=== PATIENT | female | born 1955 | race African-American/Black ===

== ENCOUNTER 2016-09-21 15:19 | Emergency (ER) ==
[2016-09-21 15:25] VITALS: BP 132/69
--- NOTE | 2016-09-21 15:50 | PROVIDER DOCUMENTATION ---
HPI-General Adult - General Source: patient - History of Present Illness -Gen Adult Nature of Presenting Problems: pt is a 61 y/o F that presents to the ER with body aches, muscle weakness, cough. denies n/v/d, fever, or urinary issues. Patient other half has same symptoms Location of Pain/Injury: reports: generalized Pain Radiation: reports: no radiation Quality of Pain: reports: aching Severity: reports: mild, moderate Onset/Duration: reports: gradual Timing: reports: still present, constant Context/Activities at Onset: reports: none Modifying Factors: improves with: nothing Associated Symptoms: reports: cough, fever/chills, muscle aches. denies: chest pain, diarrhea, dizziness, genitourinary problems, nausea, shortness of breath, vomiting Similar Symptoms Previously?: No Recently seen or treated by another doctor?: No <Orlando Fragoso - Last Filed: 09/21/16 15:46> <Robert Bang - Last Filed: 09/21/16 17:04> - General Chief Complaint: Flu Symptoms Stated Complaint: FLU SX Time Seen by Provider: 09/21/16 15:46 Allergies/Adverse Reactions: Patient Allergies Allergy/AdvReac Type Severity Reaction Status Date / Time shellfish derived Allergy Severe ITCHING Verified 04/15/15 15:30 sulfamethoxazole Allergy Intermediate RASH Verified 04/15/15 15:30 [From Bactrim] trimethoprim [From Bactrim] Allergy Intermediate RASH Verified 04/15/15 15:30 Sulfa (Sulfonamide Allergy SWELLING Verified 04/15/15 15:30 Antibiotics) tramadol Allergy FATIGUE Verified 04/15/15 15:30 aspirin AdvReac Severe "CAN'T Verified 04/15/15 15:30 TAKE BECAUSE OF MY KIDNEYS" Penicillins AdvReac RASH Verified 04/15/15 15:30 Home Medications: Home Medication List Medication Instructions Recorded Confirmed Last Taken Type PRAVAstatin [Pravachol] 40 mg PO QHS 11/24/14 12/20/15 12/19/15 08:00 History Dicyclomine [Bentyl] 10 mg PO 4XDAY 01/05/15 12/20/15 12/19/15 21:00 History Furosemide [Lasix] 40 mg PO DAILY 01/05/15 12/20/15 12/19/15 08:00 History Glipizide 10 mg PO DAILY 01/05/15 12/20/15 12/19/15 08:00 History Esomeprazole [Nexium] 40 mg PO DAILY 03/29/15 12/20/15 12/19/15 08:00 History Insulin Glargine [Lantus] 30 unit SUBQ DAILY 03/29/15 12/20/15 12/19/15 08:00 History Hydralazine [Apresoline] 50 mg PO DAILY 07/12/15 12/20/15 12/19/15 08:00 History Isosorbide Dinitrate [Isordil] 15 mg PO DAILY 07/12/15 12/20/15 12/19/15 08:00 History Nifedipine [Nifedical Xl] 60 mg PO DAILY 07/12/15 12/20/15 12/19/15 08:00 History Ondansetron HCl [Zofran] 4 mg PO PRN PRN 07/12/15 12/20/15 07/14/15 08:00 History Carvedilol [Coreg] 25 mg PO DAILY 07/14/15 12/20/15 12/19/15 08:00 History Fluconazole [Diflucan] 100 mg PO DAILY #20 tablet 07/14/15 12/20/15 12/19/15 21: 00 Rx Sucralfate [Carafate] 1 gm PO 4XDAY #120 tablet 12/20/15 Unknown Rx CephALEXIN [Keflex] 250 mg PO DAILY #10 capsule 06/03/16 Unknown Rx Cephalexin [Keflex] 500 mg PO BID #14 capsule 06/03/16 Unknown Rx Guaifenesin/Codeine [Robitussin-AC] 10 ml PO Q4H PRN PRN #4 oz 09/21/16 Unknown Rx Review of Systems - Adult - REVIEW OF SYSTEMS - ADULT Constitutional: reports: chills. denies: fever Eyes: reports: no symptoms reported Ears, Nose, Mouth & Throat: reports: sinus problem. denies: ear pain, throat pain Cardiovascular: denies: chest pain, palpitations Respiratory: reports: cough. denies: shortness of breath Gastrointestinal: denies: diarrhea, nausea, vomiting Genitourinary: reports: no symptoms reported Musculoskeletal: reports: muscle aches, muscle weakness Integumentary: denies: itching, rash Neurological: reports: no symptoms reported Psychiatric: reports: no symptoms reported Endocrine: reports: no symptoms reported Hematologic/Lymphatic: reports: no symptoms reported Allergic/Immunologic: reports: no symptoms reported All Other Systems: Reviewed and Negative <Orlando Fragoso - Last Filed: 09/21/16 15:46> Past History - Adult - PAST MEDICAL HISTORY-ADULT Review of Records: reports: Old Records Reviewed, Nursing Assessment Review, Medications Reviewed Cardiovascular: reports: CHF, HTN, hyperlipidemia Respiratory: reports: asthma, COPD Gastrointestinal: reports: GERD Genitourinary: reports: kidney disease (CKD creatinin is 2.3 which is her baseline), kidney stones Musculoskeletal: reports: arthritis Endocrine/Immune: reports: anemia, Diabetes - PRIOR SURGERIES/PROCEDURES Surgical/Procedure History: reports: cholecystectomy, hysterectomy, BTL, other ( ear surgery) - IMMUNIZATION STATUS Childhood Immunizations: NUTD Flu Vaccine: UTD - FAMILY HISTORY Family History: reviewed, not pertinent - SOCIAL HISTORY Smoking: non-smoker Living Situation: family <Orlando Fragoso - Last Filed: 09/21/16 15:46> Physical Exam-General - PHYSICAL EXAM-ADULT Initial Vital Signs Reviewed: Yes - CONSTITUTIONAL General Appearance: alert, no apparent distress - EYES Eyes: PERRL/EOMI, pink conjunctivae - HEAD, EARS, NOSE, MOUTH & THROAT HENMT: normocephalic/atraumatic, moist mucous membranes, normal ENT inspection - NECK Neck: non-tender, full range of motion, normal inspection - RESPIRATORY Respiratory: lungs clear, normal breath sounds, no respiratory distress, no accessory muscle use - CARDIOVASCULAR Cardiovascular: regular rate, rhythm, no edema, no murmur - GASTROINTESTINAL (ABDOMEN) Abdominal Exam: normal bowel sounds, non tender, soft - MUSCULOSKELETAL Extremity: normal range of motion, normal inspection, no pedal edema - SKIN Integumentary: normal color, warm/dry - NEUROLOGIC Neurologic: grossly normal, no motor/sensory deficits - PSYCHIATRIC Psych/Mental Status: normal mood/affect, normal thought content, normal thought process, oriented x 3 <Orlando Fragoso - Last Filed: 09/21/16 15:46> Progress - PLAN OF CARE/RESULTS Progress/Plan/Lab Results: Orders Category Date Time Status CHEST-2 VIEWS [RAD] Stat Exams 09/21/16 16:08 Taken Flu [INFLUENZA SCREEN PL] Stat Lab 09/21/16 15:20 Completed Orders Category Date Time Status CHEST-2 VIEWS [RAD] Stat Exams 09/21/16 16:08 Taken Flu [INFLUENZA SCREEN PL] Stat Lab 09/21/16 15:20 Completed Laboratory Tests 09/21/16 15:20 Influenza A (Rapid) NEGATIVE Influenza B (Rapid) NEGATIVE - XRAY 1 XRAY Study: Chest Impression: Normal XRAY Interpretation: nml <Robert Bang - Last Filed: 09/21/16 17:04> Departure <Orlando Fragoso - Last Filed: 09/21/16 15:46> - Departure Time of Disposition Order: 17:03 Certified Medical Emergency: Emergent <Robert Bang - Last Filed: 09/21/16 17:04> - Departure DIAGNOSIS: URI (upper respiratory infection) Qualifiers: URI type: acute nasopharyngitis (common cold) Qualified Code(s): J00 - Acute nasopharyngitis [common cold] Disposition: HOME 01 Condition: Stable Additional Instructions: ED Follow Up Instructions: You have been treated by a care provider in the Emergency Department. These instructions are being provided to you so you can have an understanding of how to care for yourself upon discharge. Upon discharge from the Emergency Department, you are responsible for making arrangements for follow-up care by a physician of your choice. Take all prescribed medications as directed. Return to the Emergency Department immediately for any new or worsening symptoms. You may call the Physician Referral phone number at [phone] to obtain a list of Physicians who are taking new patients. Prescriptions: Guaifenesin/Codeine [Robitussin-AC] 10 ml PO Q4H PRN PRN #4 oz PRN Reason: Cough Referrals: Kadeem Ruff [Primary Care Provider] - Call for Appoint. 1-2days Attestation - Scribe Verification/Attestation Scribe:: Orlando Fragoso Acting as Scribe for:: Robert Bang Scribe documention review:: This chart was documented by a scribe and accurately reflects the service the provider performed and the decisions made by the provider. <Orlando Fragoso - Last Filed: 09/21/16 15:46> Physician Attestation - Physician Attestation I, the provider, attest to the following statement:: Robert Bang Physician documentation Attestation:: This documentation recorded by the scribe accurately reflects the service I personally performed and the decisions made by me. <Orlando Fragoso - Last Filed: 09/21/16 15:46>
--- NOTE | 2016-09-21 17:34 | Diag Imaging Result Document ---
PROCEDURE NAME: CHEST-2 VIEWS - 09/21/2016 CHEST, 2 VIEWS: COMPARISON: Compared with 12/24/2014. FINDINGS: Heart size appears borderline enlarged and may have decreased slightly. The lungs appear clear. There is no pleural effusion or pneumothorax identified. The previous central venous catheter has been removed. IMPRESSION: Borderline cardiomegaly. No evidence of acute disease.
== END 2016-09-21 17:20 | disposition home or self-care (01) ==
LOC: P.ED 15:19
DX: J00 Acute nasopharyngitis [common cold] (principal); M79.1 Myalgia; M62.81 Muscle weakness (generalized); R05 Cough; R68.83 Chills (without fever); I50.9 Heart failure, unspecified; I10 Essential (primary) hypertension; E78.5 Hyperlipidemia, unspecified; J44.9 Chronic obstructive pulmonary disease, unspecified; K21.9 Gastro-esophageal reflux disease without esophagitis; M19.90 Unspecified osteoarthritis, unspecified site; E11.9 Type 2 diabetes mellitus without complications; Z79.4 Long term (current) use of insulin; Z79.899 Other long term (current) drug therapy; Z87.442 Personal history of urinary calculi
CPT/HCPCS: 71020; 87804; 99283

== ENCOUNTER 2016-12-06 06:44 | Inpatient (IN) ==
[2016-12-06] MEDS ORDERED: DUONEB (A & A) INH ONE (07:01)
[2016-12-06] MEDS ORDERED: SOLU-MEDROL IV ONE (07:01)
[2016-12-06 07:28] LABS: MANUAL DIFF NEEDED? NO
[2016-12-06 07:34] LABS: HEMATOCRIT 33.7 % (37.0-47.0); HEMOGLOBIN 10.6 g/dL (12.0-16.0); MCHC 31.5 g/dL (33-37); MCV 92.3 FL (81-99); NEUT% 59.1 % (42.2-75.2); PLT 189 X1000 (130-400); RBC 3.65 XMIL (4.2-5.4)
[2016-12-06 07:35] LABS: BASO% 0.7 % (0.0-0.8); EOS# 0.15 X1000 (0.0-0.7); EOS% 3.6 % (0.0-10.0); IMM GRAN# 0.04 X1000 (0.0-0.04); LYMPH# 0.98 X1000 (1.2-3.4); LYMPH% 23.6 % (20.5-51.1)
[2016-12-06 07:52] LABS: INR 0.92 (0.86-1.15); PROTIME 12.7 Seconds (12.1-15.5)
[2016-12-06 07:53] LABS: PTT PL 27.2 Seconds (22.6-43.9)
[2016-12-06 07:54] LABS: ALBUMIN 4.1 g/dL (3.5-5.0); MAGNESIUM 1.6 mg/dL (1.5-2.7); POTASSIUM 3.9 mmol/L (3.5-5.1); TOTAL BILIRUBIN 0.2 mg/dL (0.20-1.00); TOTAL PROTEIN 7.6 g/dL (6.3-8.3)
[2016-12-06] MEDS ORDERED: LASIX IV ONE (07:59)
--- NOTE | 2016-12-06 07:59 | EKG Report ---
Test Performed on : 12/06/2016 07:33:52 AM Test Reason : CHEST PAIN Blood Pressure : / mmHG Vent. Rate : 113 BPM Atrial Rate : 113 BPM P-R Int : 118 ms QRS Dur : 082 ms QT Int : 352 ms P-R-T Axes : 066 005 063 degrees QTc Int : 482 ms Sinus tachycardia. Possible Left atrial enlargement Borderline ECG When compared with ECG of 01-NOV-2016 13:38, Questionable change in QRS axis T wave amplitude has decreased in Lateral leads Unconfirmed Result
--- NOTE | 2016-12-06 08:06 | PROVIDER DOCUMENTATION ---
HPI-General Adult - General Chief Complaint: Flu Symptoms Stated Complaint: COLD SX Time Seen by Provider: 12/06/16 06:56 Source: patient, family Allergies/Adverse Reactions: Patient Allergies Allergy/AdvReac Type Severity Reaction Status Date / Time shellfish derived Allergy Severe ITCHING Verified 12/06/16 06:51 sulfamethoxazole Allergy Intermediate RASH Verified 12/06/16 06:51 [From Bactrim] trimethoprim [From Bactrim] Allergy Intermediate RASH Verified 12/06/16 06:51 Sulfa (Sulfonamide Allergy SWELLING Verified 12/06/16 06:51 Antibiotics) tramadol Allergy FATIGUE Verified 12/06/16 06:51 aspirin AdvReac Severe "CAN'T Verified 12/06/16 06:51 TAKE BECAUSE OF MY KIDNEYS" Penicillins AdvReac RASH Verified 12/06/16 06:51 Home Medications: Home Medication List Medication Instructions Recorded Confirmed Last Taken Type Dicyclomine [Bentyl] 20 mg PO 4XDAY 01/05/15 12/06/16 11/19/16 21:00 History Furosemide [Lasix] 40 mg PO DAILY 01/05/15 12/06/16 11/19/16 08:00 History Glipizide 10 mg PO DAILY 01/05/15 12/06/16 11/19/16 08:00 History Insulin Glargine [Lantus] 30 unit SUBQ BID 03/29/15 12/06/16 11/19/16 21:00 History Hydralazine [Apresoline] 50 mg PO BID 07/12/15 12/06/16 11/19/16 21:00 History Ondansetron HCl [Zofran] 8 mg PO PRN PRN 07/12/15 12/06/16 11/19/16 21:00 History Cinacalcet HCl [Sensipar] 30 mg PO DAILY 11/19/16 12/06/16 11/19/16 08:00 History Isosorbide Mononitrate 10 mg PO BID 11/19/16 12/06/16 11/19/16 21:00 History Mirtazapine [Remeron] 30 mg PO QHS 11/19/16 12/06/16 11/19/16 21:00 History Omeprazole 40 mg PO DAILY 11/19/16 12/06/16 11/19/16 08:00 History - History of Present Illness -Gen Adult Nature of Presenting Problems: states not feeling well has increasing shortness of breath, wheezing cougha nd sputum for past few days normally gets dialysis [facility], last dialysis was saturday states she felt too bad to go yesterday but now shortness of breath is worse and thinks she has fluid on her lungs. pt with mild to moderate distress speaking in 3 word sentences. Severity: reports: moderate Onset/Duration: reports: 3 days ago Timing: reports: still present Context/Activities at Onset: reports: none Modifying Factors: improves with: nothing Associated Symptoms: reports: denies symptoms Similar Symptoms Previously?: Yes Recently seen or treated by another doctor?: Yes Review of Systems - Adult - REVIEW OF SYSTEMS - ADULT Constitutional: reports: see HPI Eyes: reports: no symptoms reported Ears, Nose, Mouth & Throat: reports: no symptoms reported Cardiovascular: reports: see HPI, orthopnea Respiratory: reports: see HPI, cough, dyspnea on exertion, excessive sputum production, shortness of breath, wheezing Gastrointestinal: reports: no symptoms reported Genitourinary: reports: no symptoms reported Musculoskeletal: reports: muscle aches Integumentary: reports: no symptoms reported Neurological: reports: no symptoms reported Psychiatric: reports: no symptoms reported Endocrine: reports: no symptoms reported Hematologic/Lymphatic: reports: no symptoms reported Allergic/Immunologic: reports: no symptoms reported All Other Systems: Reviewed and Negative Past History - Adult - PAST MEDICAL HISTORY-ADULT Review of Records: reports: Old Records Reviewed, Nursing Assessment Review, Medications Reviewed Major Childhood Illnesses: reports: denies history Cardiovascular: reports: CHF, HTN, hyperlipidemia Respiratory: reports: asthma, COPD Gastrointestinal: reports: GERD Obstetrical/Gynecological: reports: denies history Genitourinary: reports: kidney disease (CKD creatinin is 2.3 which is her baseline), kidney stones Musculoskeletal: reports: arthritis Neurological: reports: denies history Endocrine/Immune: reports: anemia, Diabetes Other Conditions: reports: denies history - PRIOR SURGERIES/PROCEDURES Surgical/Procedure History: reports: cholecystectomy, hysterectomy, BTL, other ( ear surgery) - IMMUNIZATION STATUS Childhood Immunizations: NUTD Flu Vaccine: UTD - FAMILY HISTORY Family History: reviewed, not pertinent - SOCIAL HISTORY Smoking: denies Substance Use: none/never Alcohol Use Frequency: never Living Situation: family Physical Exam-General - PHYSICAL EXAM-ADULT Initial Vital Signs Reviewed: Yes - CONSTITUTIONAL General Appearance: alert, mild distress - EYES Eyes: PERRL/EOMI - HEAD, EARS, NOSE, MOUTH & THROAT HENMT: moist mucous membranes - NECK Neck: supple - RESPIRATORY Respiratory: chest non-tender, respiratory distress, decreased breath sounds ( bilateral base), rales, wheezing - CARDIOVASCULAR Cardiovascular: normal peripheral pulses, regular rate, rhythm, tachycardia - GASTROINTESTINAL (ABDOMEN) Abdominal Exam: soft - MUSCULOSKELETAL Extremity: no pedal edema, no calf tenderness - SKIN Integumentary: normal color, normal turgor, warm/dry - NEUROLOGIC Neurologic: grossly normal - PSYCHIATRIC Psych/Mental Status: normal mood/affect, normal thought content, normal thought process, oriented x 3 Progress - PLAN OF CARE/RESULTS Progress/Plan/Lab Results: Vital Signs - 8 hr 12/06/16 06:46 12/06/16 07:10 12/06/16 07:51 Temperature 97.8 F Pulse Rate 117 H 110 H 116 H Respiratory Rate 22 16 18 Blood Pressure 158/74 136/082 O2 Sat by Pulse Oximetry 95 95 Laboratory Results - last 24 hr 12/06/16 12/06/16 12/06/16 07:23 07:23 07:23 WBC 4.15 L RBC 3.65 L Hgb 10.6 L Hct 33.7 L MCV 92.3 MCH 29.0 MCHC 31.5 L RDW Std Deviation 14.9 H Plt Count 189 MPV 9.0 Immature Gran % (Auto) 1.0 H Neut % (Auto) 59.1 Lymph % (Auto) 23.6 Irwin % (Auto) 12.0 H Eos % (Auto) 3.6 Baso % (Auto) 0.7 Immature Gran # (Auto) 0.04 Neut # (Auto) 2.45 Lymph # (Auto) 0.98 L Irwin # (Auto) 0.50 Eos # (Auto) 0.15 Baso # (Auto) 0.03 PT INR APTT (Factor Assay) Sodium 136 Potassium 3.9 Chloride 96 L Carbon Dioxide 24 L Anion Gap 17 BUN 51 H Creatinine 5.6 H Estimated GFR/1.73 m2 8 BUN/Creatinine Ratio 9 Glucose 185 H Calculated Osmolality 290 Calcium 8.0 L Magnesium 1.6 Total Bilirubin 0.20 AST 35 H ALT 37 H Alkaline Phosphatase 153 H Creatine Kinase 131 Troponin T 0.024 Total Protein 7.6 Albumin 4.1 Globulin 4.0 Albumin/Globulin Ratio 1.0 12/06/16 07:23 WBC RBC Hgb Hct MCV MCH MCHC RDW Std Deviation Plt Count MPV Immature Gran % (Auto) Neut % (Auto) Lymph % (Auto) Irwin % (Auto) Eos % (Auto) Baso % (Auto) Immature Gran # (Auto) Neut # (Auto) Lymph # (Auto) Irwin # (Auto) Eos # (Auto) Baso # (Auto) PT 12.7 INR 0.92 APTT (Factor Assay) 27.2 Sodium Potassium Chloride Carbon Dioxide Anion Gap BUN Creatinine Estimated GFR/1.73 m2 BUN/Creatinine Ratio Glucose Calculated Osmolality Calcium Magnesium Total Bilirubin AST ALT Alkaline Phosphatase Creatine Kinase Troponin T Total Protein Albumin Globulin Albumin/Globulin Ratio Orders Category Date Time Status Cardiac Monitoring DIRECTED Care 12/06/16 07:04 Active Saline Loc NOW Care 12/06/16 07:04 Active CHEST-PORTABLE [RAD] Stat Exams 12/06/16 07:02 Taken CBC WITH ELECTRONIC DIFF [HEME] Stat Lab 12/06/16 07:23 Completed CK PROFILE [SP CHEM] Stat Lab 12/06/16 07:23 Completed COMPREHENSIVE METABOLIC PANEL [CHEM] Stat Lab 12/06/16 07:23 Completed MAGNESIUM [CHEM] Stat Lab 12/06/16 07:23 Completed PRO B-NATRIURETIC PEPTIDE Stat Lab 12/06/16 07:[address]IME WITH INR [address] [COAG] Stat Lab 12/06/16 07:[address] [COAG] Stat Lab 12/06/16 07:23 Completed TROPONIN T Stat Lab 12/06/16 07:23 Completed Albuterol 2.5MG/Ipratrop 0.5MG [Duoneb (A & A)] Med 12/06/16 07:01 Discontinued 9 ml INH NOW ONE Furosemide [Lasix] Med 12/06/16 07:59 Once 60 mg IV NOW ONE Methylprednisolone Sod Succ [Solu-Medrol] Med 12/06/16 07:01 Discontinued 125 mg IV NOW ONE Aerosol Treatments Routine Oth 12/06/16 07:02 Completed Aerosol Treatments Stat Oth 12/06/16 07:02 Completed EKG [EKG] Stat Ther 12/06/16 07:04 Draft 855am walker accepted the patient Result Diagrams: 12/06/16 07:23 12/06/16 07:23 - CONSULTS/PCP/HOSPITALIST Notification #1 *Consult/PCP/Hospitalist*: gladdish Time Discussed: 08:08 Reason/Comments: eval for dialysis states o2 low must transfer contact hospitalist Consult Disposition: other #2 Consult: hospitalist sera at [facility] Time Discussed: 08:08 Reason/Comments: states should just send to ED [place] Consult Disposition: other #3 Consult: hospitalist joseph paged 809am Time Discussed: 08:15 Reason/Comments: isra nurse practitioner will notify [place] hospitalist to call me back Consult Disposition: other Departure - Departure Time of Disposition Decision: 09:00 DIAGNOSIS: Acute renal failure syndrome, Shortness of breath Disposition: ADMITTED INPATIENT 09 Certified Medical Emergency: Emergent Condition: Fair - Critical Care Note This patient required my direct & personal management of CC.: Yes Total Time (mins): 35 Critical Care Statement: This patient required my direct personal management to treat or rule out processes, the absence of which, could potentiallly result in sudden, clinically significant life or limb threatening deterioration.
--- NOTE | 2016-12-06 08:26 | Diag Imaging Result Document ---
PROCEDURE NAME: CHEST-PORTABLE - 12/06/2016 PORTABLE CHEST X-RAY, 12/06/2016: COMPARISON: 11/01/2016. FINDINGS: Stable mild cardiomegaly and perhaps pulmonary vascular congestion. No infiltrates or edema. IMPRESSION: No change from prior.
[2016-12-06] MEDS ORDERED: HEPARIN IV PRN (08:29)
[2016-12-06] MEDS ORDERED: NS 2,000 ML MISC PRN (08:29)
[2016-12-06] MEDS ORDERED: TIGHT: 0.2 ML/HR MISC PRN (08:29)
[2016-12-06] MEDS ORDERED: HEPARIN ONE (08:50)
[2016-12-06] MEDS ORDERED: NS 2,000 ML ONE (08:50)
[2016-12-06] MEDS ORDERED: ZOFRAN IV PRN (11:27)
[2016-12-06] MEDS ORDERED: NS NEB INH SCH (11:45)
--- NOTE | 2016-12-06 12:28 | HISTORY AND PHYSICAL ---
PRIMARY CARE PROVIDER: Dr. Ruff. MASTIC MAN: Dr. Sommer. MANAGER CORPORATE STRATEGY: Dr. Bonner. CHIEF COMPLAINT: Shortness of breath. HISTORY OF PRESENT ILLNESS: Ms. Ban Brooks is a 61-year-old female with a history of end-stage renal disease who receives dialysis on Saturday, Saturday, Saturday, systolic congestive heart failure, hypertension, diabetes mellitus type 2, and COPD, who states that she woke up this morning with shortness of breath. Apparently, she missed her dialysis yesterday secondary to being nauseated all day. She states she is not nauseated now and her shortness of breath feels better. She has received respiratory treatments and Lasix, and is now currently on hemodialysis. She is on 2L nasal cannula. She does not use oxygen at home. Will need to wean off prior to discharge. Will continue with albuterol and Atrovent nebulizations , budesonide nebulizations, and transfer her to the medical floor once she is finished with dialysis. Currently, vital signs are stable. She does still have some crackles in the middle to lower lobes anteriorly and posteriorly. PAST MEDICAL HISTORY: GERD, asthma, COPD with no home O2, diabetes mellitus type 2, hypertension, systolic congestive heart failure, hypercholesterolemia, end-stage renal disease , anemia that is chronic, history of cardiac tamponade, but received a pericardial window for effusion in the past. PAST SURGICAL HISTORY: Cholecystectomy, hysterectomy, right arm AV graft, pericardial window. SOCIAL HISTORY: She lives at home with her boyfriend, who takes her to all of her hemodialysis treatments. She denies tobacco, alcohol, or illicit drug use. FAMILY HISTORY: Positive for hypertension, coronary artery disease, and congestive heart failure. ALLERGIES: Shellfish, sulfamethoxazole, trimethoprim, other sulfa antibiotics, tramadol, aspirin, and penicillin. HOME MEDICATIONS: Sensipar 30 mg p.o. daily. Bentyl 20 mg p.o. 4 times a day. Lasix 40 mg p.o. daily. Glipizide 10 mg p.o. daily. Hydralazine 50 mg p.o. twice daily. Lantus 30 units subcutaneous twice daily. Isosorbide mononitrate 10 mg p.o. twice daily. Remeron 30 mg p.o. nightly. Omeprazole 40 mg p.o. daily. Zofran 8 mg p.o. as needed for nausea. REVIEW OF SYSTEMS: Fourteen-point review of systems were completed and all were negative except for those mentioned above in HPI. LABORATORY DATA: White blood cells 4000, hemoglobin 10, hematocrit 33, platelet count 189,000. INR 0.92. PTT is 27. Sodium 136, potassium 3.9, BUN 51, creatinine 5.6, glucose 185, calcium 8.0, magnesium 1.6, bilirubin 0.2, AST 35, ALT 37, CK 131, troponin 0.024. IMAGING: Chest x-ray: Stable mild cardiomegaly and pulmonary vascular congestion, but no infiltrates or edema. ELECTROCARDIOGRAM: Sinus tachycardia. Rate was 113. QTc 482. PHYSICAL EXAMINATION: VITAL SIGNS: Temperature 97.8 degrees, heart rate 108, respiratory rate 24, blood pressure 185/85, and on 2L nasal cannula 99% saturation. Height 5 feet 5 inches, weight 220 pounds, BMI 36.6. GENERAL: Ms. Ban Brooks is a 61-year-old female. She is in no acute distress. She is sitting comfortably in the chair while receiving hemodialysis. She is able to answer all questions appropriately. HEENT: Atraumatic, normocephalic. Pupils equal, round, reactive to light. Extraocular movements intact. Mucous membranes are moist. NECK: No JVD or carotid bruits noted. CARDIOVASCULAR: S1 and S2. Tachycardic rate and rhythm. No rubs, gallops, murmurs. PULMONARY: Clear in the upper lobes, crackles in the mid to lower lobes anteriorly and posteriorly, but no accessory muscle use or work of breathing noted. She still is on 2L nasal cannula. GASTROINTESTINAL: Soft, nontender, nondistended. Positive bowel sounds x4. Obese. EXTREMITIES: Trace edema in the lower extremities, +2 dorsalis and radial pulses. Right arm that is currently connected to the hemodialysis unit. SKIN: Warm, dry, intact. NEUROLOGIC: Alert and oriented x4. Moves all extremities equally. ASSESSMENT AND PLAN: 1. Fluid volume overload secondary to missing hemodialysis. She received IV Lasix and has been started on dialysis. 2. End-stage renal disease, being managed by Dr. Bonner. 3. Shortness of breath. This is secondary to the fluid volume overload. She also has chronic obstructive pulmonary disease, but no exacerbation. We will continue with respiratory nebulizers and pulmonary toilet. Will wean oxygen as able prior to discharge. 4. Hypertension. Continue home medications. 5. Diabetes mellitus, type 2. Sliding scale insulin, pattern blood glucoses. 6. Systolic congestive heart failure. Please see #1. 7. Hypercholesterolemia. We will continue home medications. 8. Chronic anemia, currently stable. 9. Deep venous thrombosis prophylaxis with heparin 5000 units subcutaneous every 12 hours. 10. Gastrointestinal prophylaxis. Proton pump inhibitor. Dictated by MALINA Vidal for Jose Kuo MD cc: MD Dr. Speedy Sanchez Dr., CRNP Alexis R. Penot, MD pt examined, will get serial enzymes and follow closely APENOT MTDD
[2016-12-06] MEDS: BENTYL PO SCH ×3 (13:57→20:04)
[2016-12-06] MEDS ORDERED: DUONEB (A & A) INH SCH (16:00)
[2016-12-06] MEDS: ATROVENT NEB INH SCH ×2 (16:13→19:38)
[2016-12-06] MEDS: XOPENEX NEB INH SCH ×2 (16:13→19:38)
[2016-12-06] MEDS ORDERED: INSULIN PEN NEEDLES ONE (16:44)
[2016-12-06] MEDS: HUMULIN R SUBQ SCH ×3 (17:02→22:02)
[2016-12-06] MEDS: LANTUS SUBQ SCH ×2 (18:52→20:05)
[2016-12-06] MEDS: PULMICORT INH SCH (19:37)
[2016-12-06] MEDS: REMERON PO SCH (20:03)
[2016-12-06] MEDS: ISORDIL PO SCH (20:03)
[2016-12-06] MEDS: APRESOLINE PO SCH (20:03)
[2016-12-06] MEDS: HEPARIN SUBQ SCH (20:04)
[2016-12-06] MEDS ORDERED: LANTUS SUBQ SCH (21:00)
[2016-12-06] MEDS ORDERED: HUMULIN R SUBQ SCH (21:46)
[2016-12-07] MEDS: ATROVENT NEB INH SCH ×4 (03:45→21:10)
[2016-12-07] MEDS: XOPENEX NEB INH SCH ×4 (03:45→21:10)
[2016-12-07] MEDS ORDERED: D50W SYRINGE ONE (04:53)
[2016-12-07 06:04] LABS: MANUAL DIFF NEEDED? NO
[2016-12-07 06:07] LABS: BASO% 0.7 % (0.0-0.8); EOS# 0.01 X1000 (0.0-0.7); EOS% 0.2 % (0.0-10.0); HEMATOCRIT 32.9 % (37.0-47.0); HEMOGLOBIN 10.2 g/dL (12.0-16.0); IMM GRAN# 0.08 X1000 (0.0-0.04); IMM GRAN% 1.4 % (0.0-0.5); LYMPH# 1.16 X1000 (1.2-3.4); MCH 28.7 PG (27-31); MCV 92.4 FL (81-99); MONO# 0.66 X1000 (0.11-0.59); MONO% 11.9 % (1.7-9.3); MPV 9.2 FL (7.4-10.4); NEUT% 64.8 % (42.2-75.2); PLT 202 X1000 (130-400); RBC 3.56 XMIL (4.2-5.4)
[2016-12-07 06:15] LABS: INR 1.02; PROTIME 10.7 Seconds (9.2-11.7)
[2016-12-07] MEDS: PRILOSEC PO SCH (06:19)
[2016-12-07] MEDS: HUMULIN R SUBQ SCH ×4 (06:19→21:29)
[2016-12-07 06:35] LABS: ALBUMIN 3.8 g/dL (3.5-5.0); CALCIUM 8.2 mg/dL (8.8-10.2); MAGNESIUM 1.7 mg/dL (1.5-2.7); POTASSIUM 3.7 mmol/L (3.5-5.1); TOTAL BILIRUBIN 0.23 mg/dL (0.20-1.00); TOTAL PROTEIN 6.9 g/dL (6.3-8.3)
[2016-12-07] MEDS ORDERED: NS 2,000 ML MISC PRN (06:41)
[2016-12-07] MEDS ORDERED: TIGHT: 0.2 ML/HR MISC PRN (06:41)
[2016-12-07] MEDS ORDERED: HEPARIN IV PRN (06:41)
[2016-12-07] MEDS ORDERED: NS 2,000 ML ONE (08:02)
[2016-12-07] MEDS ORDERED: HEPARIN ONE (08:02)
--- NOTE | 2016-12-07 08:27 | Diag Imaging Result Document ---
PROCEDURE NAME: CHEST-2 VIEWS - 12/07/2016 2 VIEWS OF THE CHEST: FINDINGS: There is cardiomegaly. There are calcified nodes in the chuck. Compared to 12/06/2016 there has been no significant change in the appearance of the chest. IMPRESSION: Stable chest.
[2016-12-07] MEDS: HEPARIN SUBQ SCH ×2 (13:00→21:29)
[2016-12-07] MEDS: LASIX PO SCH (13:01)
[2016-12-07] MEDS: GLUCOTROL PO SCH (13:01)
[2016-12-07] MEDS: BENTYL PO SCH ×4 (13:01→21:30)
[2016-12-07] MEDS: APRESOLINE PO SCH ×2 (13:02→21:30)
[2016-12-07] MEDS: LANTUS SUBQ SCH ×2 (13:03→21:30)
[2016-12-07] MEDS: SENSIPAR PO SCH (13:03)
--- NOTE | 2016-12-07 13:30 | CONSULTATION ---
DATE OF CONSULTATION: 12/07/2016 REASON FOR CONSULTATION: Assistance with management. HISTORY OF PRESENT ILLNESS: Ms. Brooks is a 61-year-old white black female who is well known to me. She has end-stage kidney disease secondary to hypertension. She has also a history of COPD, though she has never been a smoker. Diabetes is present, as well as obesity. She states that she has had a recent upper respiratory infection that she characterized as bronchitis. She was treated by her primary care doctor with antibiotics, and she had some improvement, but she states on Saturday of this week she awoke and "could not pick my head up off the pillow." She also had nasal congestion, rhinorrhea, cough, white to yellow sputum production. She has retrosternal pain with cough that is persistent as well. No radiation. No diaphoresis, nausea, or other associated anginal symptoms. She did have night sweats, but no fever. She missed her dialysis on Saturday because of her symptoms and then presented to the emergency room and was subsequently admitted. Her initial evaluation in the emergency room found evidence of pulmonary vascular congestion and pulmonary edema, and she was dialyzed yesterday. This morning her shortness of breath is some better, though she is still coughing and still having chest discomfort. She still has rhinorrhea. PAST MEDICAL HISTORY: As above. She also has hyperlipidemia, congestive heart failure, hypertension, history of tamponade with pericardial window. SOCIAL HISTORY: She lives at home. Never a smoker. FAMILY HISTORY: Positive for heart disease and hypertension. ALLERGIES: Include sulfamethoxazole, trimethoprim, tramadol, aspirin, penicillin. HOME MEDICATIONS: Sensipar, Bentyl, furosemide, glipizide, hydralazine, insulin, isosorbide, Remeron, omeprazole, ondansetron as needed. REVIEW OF SYSTEMS: Otherwise noncontributory. PHYSICAL EXAMINATION: Vital Signs: Blood pressure 160/82, heart rate 96, respirations 22, afebrile. General: She is an obese woman, lying at 30 degrees, in no distress. She does have paroxysms of cough that interrupt our interview. Skin: Warm and dry. HEENT: Conjunctivae are pink. Pupils are equal. Anicteric. Oropharynx, normal tongue. Poor dentition with multiple broken and carious teeth. Neck: Supple. Trachea is midline. Jugular venous distention is not present. Heart: Regular without gallops or murmurs. Lungs: Have equal breath sounds with few expiratory wheezes. No crackles. Abdomen: Obese and soft. Bowel sounds are present. No organomegaly or masses. Extremities: Have no edema, clubbing, or cyanosis. IMPRESSION AND PLAN: Shortness of breath with cough. I expect that she primarily has an upper airway illness. These symptoms overlie pulmonary vascular congestion. Her volume status has been addressed with dialysis, and we will treat her again today. She is receiving inhaled bronchodilators, as well as methylprednisolone. cc: Darryl Bonner MD
[2016-12-07] MEDS: ISORDIL PO SCH ×2 (14:06→21:30)
[2016-12-07] MEDS: PULMICORT INH SCH ×2 (16:28→21:10)
[2016-12-07] MEDS: REMERON PO SCH (21:30)
[2016-12-08] MEDS ORDERED: ROBITUSSIN-AC PO PRN (00:03)
[2016-12-08] MEDS ORDERED: ROCEPHIN 1 GM/NS 1 GM/50 ML IVPB IV SCH (00:15)
[2016-12-08] MEDS: TYLENOL PO PRN ×2 (00:49→10:59)
[2016-12-08] MEDS: XOPENEX NEB INH SCH ×4 (03:15→21:10)
[2016-12-08] MEDS: ATROVENT NEB INH SCH ×4 (03:15→21:10)
[2016-12-08] MEDS: PRILOSEC PO SCH (06:50)
[2016-12-08] MEDS: HUMULIN R SUBQ SCH ×3 (07:00→23:02)
--- NOTE | 2016-12-08 07:24 | PROGRESS NOTE ---
DATE: 12/08/2016 SUBJECTIVE: The patient complaining of cough. She still does not feel well. She is still having intermittent chest pain. OBJECTIVE: Cardiovascular: Regular rate and rhythm. PULMONARY: Occasional rhonchi.Gastrointestinal: Abdomen was soft, nontender, nondistended. Bowel sounds are positive. LABORATORY DATA: White count normal. Hemoglobin and hematocrit 10 and 32. Platelets of 202,000. Coags were okay. Basic okay with a creatinine of 4.3. PROBLEM LIST: 1. Atypical chest pain, unclear etiology. We will continue to monitor. 2. Volume overload. She appears to be improved. Dialysis has fixed that. 3. Bronchitis. We will start some empiric Get a sputum culture. Chest x-ray does not show pneumonia. She is also requesting some cough syrup and we will provider for that. 4. End-stage renal. Will continue dialysis per schedule. 5. Diabetes. Continue regular medications. DISPOSITION: At this point, probably get her home, I think the next 24 hours if she is stable. cc: Jose Kuo MD
[2016-12-08 09:19] LABS: ALBUMIN 3.9 g/dL (3.5-5.0); CALCIUM 8.2 mg/dL (8.8-10.2); POTASSIUM 3.9 mmol/L (3.5-5.1)
[2016-12-08] MEDS: PULMICORT INH SCH ×2 (10:42→21:10)
[2016-12-08] MEDS: LASIX PO SCH (10:49)
[2016-12-08] MEDS: SENSIPAR PO SCH (10:58)
[2016-12-08] MEDS: ISORDIL PO SCH ×2 (10:59→23:03)
[2016-12-08] MEDS: APRESOLINE PO SCH ×2 (10:59→23:04)
[2016-12-08] MEDS: BENTYL PO SCH ×4 (10:59→23:03)
[2016-12-08] MEDS: LANTUS SUBQ SCH ×2 (11:00→23:10)
[2016-12-08] MEDS: HEPARIN SUBQ SCH ×2 (11:01→23:03)
[2016-12-08] MEDS: GLUCOTROL PO SCH (11:01)
--- NOTE | 2016-12-08 16:28 | ECHO REPORT ---
ORDER DATE: 12/07/2016 INTERPRETING PHYSICIAN: Dr. Alexander REQUESTING PHYSICIAN: CLINICAL INDICATIONS: This is a 61-year-old female with CHF, COPD, asthma, history of cardiac tamponade. M-MODE MEASUREMENTS: Right ventricle: 3.6 cm. Left ventricle end diastole: 4.9 cm. Left ventricle end systole: 3.8 cm. Posterior wall: 1.2 cm. Interventricular septum: 1.2 cm. Left atrium: 4.2 cm. Aortic root: 3.1 cm. SUMMARY OF 2-DIMENSIONAL IMAGIN. Left ventricular function appears to be preserved. Ejection fraction is estimated at 55%. No definite wall motion abnormality noted. 2. The mitral valve opens normally. Color flow mapping indicates mild regurgitation. 3. The pulse wave Doppler of mitral inflow shows fusion of the E and the A wave. 4. The patient may be either in sinus tachycardia or in atrial flutter. 5. The aortic valve looks normal. Color flow mapping is unremarkable. 6. The tricuspid valve showed mild to moderate degree of regurgitation. 7. There is no dilatation of inferior vena cava. 8. Pulmonary pressure is estimated at 35 mmHg. 9. The pulmonic valve showed mild degree of regurgitation. 10.The pulmonary diastolic pressure is estimated at 14 mmHg. CONCLUSIONS: 1. Preserved left ventricular systolic function. Ejection fraction is 55% with moderate to significant enlargement of the left ventricular chamber and mild degree of concentric LVH. 2. Mild degree of mitral and tricuspid regurgitation. 3. Pulmonary pressure of 35 mmHg over 40 mmHg. 4. Aortic valve is unremarkable. 5. Small pericardial effusion present. 6. No tamponade is noted. Clinical correlation is recommended. cc: MD Jose Talamantes MD
[2016-12-08] MEDS ORDERED: XYLOCAINE-MPF 1% INJ ONE (16:36)
[2016-12-08] MEDS ORDERED: ROCEPHIN IM ONE (16:36)
[2016-12-08] MEDS ORDERED: OMNICEF PO SCH (16:45)
[2016-12-08] MEDS: REMERON PO SCH (23:03)
[2016-12-09] MEDS: XOPENEX NEB INH SCH ×3 (03:20→16:18)
[2016-12-09] MEDS: ATROVENT NEB INH SCH ×3 (03:20→16:18)
[2016-12-09 05:53] LABS: HEMATOCRIT 29.8 % (37.0-47.0); HEMOGLOBIN 9.3 g/dL (12.0-16.0); MCH 29.5 PG (27-31); MCHC 31.2 g/dL (33-37); MCV 94.6 FL (81-99); MPV 9.6 FL (7.4-10.4); RBC 3.15 XMIL (4.2-5.4)
[2016-12-09 06:07] LABS: POTASSIUM 4.2 mmol/L (3.5-5.1)
[2016-12-09] MEDS: HUMULIN R SUBQ SCH ×3 (06:38→15:58)
[2016-12-09] MEDS: PRILOSEC PO SCH (06:38)
[2016-12-09] MEDS: HEPARIN SUBQ SCH (08:57)
[2016-12-09] MEDS ORDERED: OMNICEF PO SCH (09:00)
[2016-12-09] MEDS: LASIX PO SCH (09:06)
[2016-12-09] MEDS: APRESOLINE PO SCH (09:06)
[2016-12-09] MEDS: ISORDIL PO SCH (09:06)
[2016-12-09] MEDS: SENSIPAR PO SCH (09:06)
[2016-12-09] MEDS: BENTYL PO SCH ×3 (09:06→17:14)
[2016-12-09] MEDS: PULMICORT INH SCH (10:35)
[2016-12-09] MEDS: LANTUS SUBQ SCH (11:54)
[2016-12-09] MEDS: GLUCOTROL PO SCH (12:03)
[2016-12-09] MEDS: TYLENOL PO PRN (15:52)
[2016-12-09 16:30] VITALS: BP 142/69
[2016-12-09] MEDS ORDERED: AFRIN NASAL SPRAY NAS ONE (17:17)
--- NOTE | 2016-12-09 17:52 | DISCHARGE SUMMARY ---
DATE: 12/09/2016 SUBJECTIVE: Patient has no focal complaints. OBJECTIVE: Vital signs: Blood pressure 142/69, heart rate of 106, 20, 99.2 temperature. Cardiovascular: Regular rate and rhythm. Pulmonary: Bilateral breath sounds. Clear to auscultation. GI: Soft, nontender. Patient appears stable. She has congestion of her upper airways. Is frustrated that that is not much better, again she just has an upper airway infection. DISCHARGE DIAGNOSES: 1. Bronchitis and then volume overload. 2. End-stage renal. Briefly this is a 61-year-old female admitted on the for shortness of breath. She had missed her dialysis because of just not feeling well. She had come in for evaluation. She had been placed on IV Lasix. She was transferred here for dialysis which she underwent per Dr. Bonner. Her chest x-ray actually did not look that bad, some cardiomegaly. Her echocardiogram showed EF of 55% with LVH likely some diastolic dysfunction. We started some Rocephin for putative bronchitis upper airway. Her chest x-ray did not show any infiltrate consistent with pneumonia. She was not particularly hypoxic she just had nasal congestion. In any case she was felt stable for discharge on the . DISCHARGE MEDS: Omnicef 300 q.48 for 7 days, Sensipar 30 daily, Bentyl 20 four times a day, Lasix 40 daily, glipizide 10 daily, Apresoline 50 b.i.d., Tussionex q.12 for p.r.n. cough, Lantus 30 b.i.d., Imdur 10 b.i.d., Remeron 30 at bedtime, omeprazole 40 daily, Zofran p.r.n. daily. DISCHARGE CONDITION: Stable. cc: Darryl Bonner MD
--- NOTE | 2016-12-10 05:14 | PROGRESS NOTE ---
DATE: 12/08/2016 SUBJECTIVE: Patient has no focal complaints. OBJECTIVE: Vital signs: Blood pressure 149/76, heart rate 112, respiratory 22, temperature 98.6, O2 saturation 98 over 2 L . Cardiovascular: Regular rate and rhythm. Pulmonary: Bilateral breath sounds clear to auscultation. GI: Was soft, nontender, nondistended. Bowel sounds are positive. Extremities: No clubbing or cyanosis. Lymphatics: No peripheral edema. PROBLEM LIST: 1. Acute bronchitis. She is on Omnicef. She has lost IV access. We are just giving her p.o. antibiotics. I may give her 1 dose of Rocephin IV and we will plan for her to go home tomorrow. She is still having some difficulty with breathing and chest discomfort. She is getting some medications for that. 2. End-stage renal. Appears to be stable. DISPOSITION: Likely home tomorrow if stable. cc: Jose Kuo MD
== END 2016-12-09 18:35 | disposition home or self-care (01) ==
LOC: 4N 06:44 → P.ED 06:44 → OBSVTOIN 08:57 → 4N 09:26
PROVIDERS: ATTEND Internal Medicine

== ENCOUNTER 2018-11-11 11:02 | Inpatient (IN) ==
[2018-11-11] MEDS ORDERED: 1/2 NS 500 ML ONE (11:43)
[2018-11-11] MEDS ORDERED: FENTANYL ONE (13:44)
[2018-11-11] MEDS ORDERED: DIPRIVAN 1% ONE (13:44)
--- NOTE | 2018-11-11 15:17 | EKG Report ---
Test Performed on : 11/11/2018 2:43:17 PM Test Reason : GI #8. Blood Pressure : / mmHG Vent. Rate : 123 BPM Atrial Rate : 123 BPM P-R Int : 144 ms QRS Dur : 090 ms QT Int : 330 ms P-R-T Axes : 068 126 037 degrees QTc Int : 472 ms Sinus tachycardia. with occasional premature ventricular complexes. Possible Left atrial enlargement Right axis deviation Abnormal ECG When compared with ECG of 19-DEC-2017 21:00, premature ventricular complexes. are now present QRS axis shifted right Nonspecific T wave abnormality no longer evident in Anterior leads Confirmed by Carmen KIMBLAL, Jon ([id number]) on 11/12/2018 8:55:43 AM
[2018-11-11] MEDS ORDERED: VERSED ONE (15:20)
[2018-11-11 15:21] LABS: BASO# 0.06 X1000 (0.0-0.2); BASO% 0.7 % (0.0-0.8); EOS# 0.15 X1000 (0.0-0.7); EOS% 1.7 % (0.0-10.0); HEMOGLOBIN 12.1 g/dL (12.0-16.0); IMM GRAN# 0.09 X1000 (0.0-0.04); LYMPH# 2.86 X1000 (1.2-3.4); LYMPH% 32.4 % (20.5-51.1); MCH 30.5 PG (27-31); MCHC 29.5 g/dL (33-37); MCV 103.3 FL (81-99); MONO# 0.78 X1000 (0.11-0.59); MONO% 8.8 % (1.7-9.3); MPV 9.9 FL (7.4-10.4); NEUT% 55.4 % (42.2-75.2); PLT 265 X1000 (130-400); RBC 3.97 XMIL (4.2-5.4); RDW 16.1 % (11.5-14.5); WBC 8.84 X1000 (4.8-10.8)
[2018-11-11] MEDS ORDERED: SODIUM CHLORIDE 0.9% 20 ML ONE ×2 (15:21→15:27)
[2018-11-11] MEDS ORDERED: NEO-SYNEPHRINE ONE (15:21)
[2018-11-11] MEDS ORDERED: NIMBEX ONE (15:22)
[2018-11-11 15:25] LABS: INR 1.04; PROTIME 14.4 Seconds (11.0-16.0)
[2018-11-11] MEDS ORDERED: EPINEPHRINE SYRINGE ONE ×2 (15:27→15:28)
[2018-11-11 15:36] LABS: ALBUMIN 4.1 g/dL (3.5-5.0); CALCIUM 8.7 mg/dL (8.8-10.2); CREATININE 5.4 mg/dL (0.5-0.9); MAGNESIUM 2.2 mg/dL (1.5-2.7); PHOSPHORUS 5.2 mg/dL (2.7-4.5); POTASSIUM 3.8 mmol/L (3.5-5.1); TOTAL BILIRUBIN 0.28 mg/dL (0.20-1.00); TOTAL PROTEIN 6.2 g/dL (6.3-8.3)
[2018-11-11 15:39] LABS: CK INDEX 2.1 (0.0-2.5); CK-MB 4.7 ng/mL (0.0-5.0)
[2018-11-11] MEDS: NEO-SYNEPHRINE 50 MG in NS 250 ML IV SCH (15:40)
--- NOTE | 2018-11-11 15:51 | Diag Imaging Result Doc PS360 ---
EXAM: CHEST-PORTABLE HISTORY: code blue TECHNIQUE: Portable chest COMPARISON: 01/03/2018 FINDINGS: There is an endotracheal tube with the tip 2 cm above the emma. The heart is enlarged. No definite pulmonary edema. Small left pleural effusion or pleural thickening similar to the prior exam. No pneumothorax. IMPRESSION: Endotracheal tube in good position Electronically signed by Jhonny Sanchez 11/11/2018 3:49 PM
--- NOTE | 2018-11-11 16:17 | OPERATIVE NOTE ---
PROCEDURE DATE: 11/11/2018 PROCEDURE: Colonoscopy attempted. MEDICATION USED: MAC as per Anesthesia. SCOPE USED: Pentax colonoscope. HISTORY: This is a 63-year-old female, patient of Dr. Mehta, who had a colonoscopy a few months ago where she had an incomplete colonoscopy because of poor prep. She has history of adenomatous polyp. She is here for surveillance purposes. PROCEDURE: Informed consent obtained from the patient, as well as her family. Procedure, risks, benefits, alternatives explained in layman's terms. They understood. All the pertinent questions answered. Patient was brought to the endoscopy unit and was premedicated as per Anesthesia. After adequate sedation, while she was lying in the left lateral position, digital rectal exam was performed which was normal. Scope was then gently introduced into the rectum and advanced under direct vision. I was able to advance all the way up to the transverse colon where the scope had to be retrieved immediately because patient became bradycardic and hypotensive, along with her saturation dropped. After removal of the scope, code was called in, and the patient was revived, intubated and transferred to the ICU. IMPRESSION: History of colon polyps. Incomplete colonoscopy. Colonoscopy stopped because of her hemodynamic condition deteriorated. PLAN: The patient was then transferred to the ICU and further plans made according to her progress. cc: MD Darryl Hodges MD
[2018-11-11] MEDS ORDERED: TYLENOL PO PRN (16:20)
[2018-11-11] MEDS ORDERED: DUONEB (A & A) INH PRN (16:20)
[2018-11-11] MEDS ORDERED: VANCOMYCIN IV PER PHARMACY MISC SCH (16:30)
--- NOTE | 2018-11-11 16:44 | Diag Imaging Result Doc PS360 ---
EXAM: CHEST-PORTABLE HISTORY: central line and NG verification TECHNIQUE: Portable chest COMPARISON: 3:41 PM FINDINGS: There appear to be two catheters overlying the esophagus. Alternatively there is one catheter coiled in the stomach with the tip coming back up the esophagus. There is also a left subclavian line with the tip beyond the x-ray in the jugular vein. Electronically signed by Jhonny Snachez 11/11/2018 4:42 PM
[2018-11-11 16:48] LABS: ALLEN TEST YES; BE -2.8 mmoll (-3.0-3.0); BLOOD TYPE ARTERIAL; HCO3-(ACT) 22.7 mmoll (20.0-26.0); METHB 1.4 % (0.0-1.5); O2(CT) 18.2 mL/dL (15.0-23.0); O2HB 95.9 % (95.0-99.0); PO2(98.6) 330 mmHg (60-100); SAMPLE BLOOD; SAO2 97.9 % (95.0-100.0); THB 12.9 g/dL (11.5-17.4); TVOL 550 mL; pH(98.6) 7.26 (7.35-7.45)
[2018-11-11 16:52] LABS: MODALITY VENTILATOR; PCO2(98.6) 56 mmHg (35-45)
--- NOTE | 2018-11-11 17:47 | Diag Imaging Result Doc PS360 ---
EXAM: CT HEAD W/O CONTRAST HISTORY: post code, hypothermia eval TECHNIQUE: CT head without contrast COMPARISON: 12/26/2017 FINDINGS: No parenchymal hemorrhage. No epidural or subdural hematoma. No subarachnoid hemorrhage. No midline shift. No hydrocephalus. Right mastoid sinus opacification with fluid in the inner ear. Erosion of the right temporal bone may have slightly progressed. IMPRESSION: 1. No intracranial hemorrhage or hydrocephalus. 2. Known right temporal bone erosion which may have slightly progressed compared to the prior exam. This exam was performed using automated exposure control, adjustment of mA or kV according to patient size, and/or use of iterative reconstruction technique. Electronically signed by Jhonny Sanchez 11/11/2018 5:44 PM
[2018-11-11] MEDS: PROTONIX IV SCH (17:54)
[2018-11-11] MEDS ORDERED: VANCOMYCIN 1 GM/NS 1 GM/250 ML IVPB IV ONE (18:00)
[2018-11-11] MEDS ORDERED: NS 500 ML IV PRN (18:01)
[2018-11-11] MEDS ORDERED: TYLENOL PR PRN (18:01)
--- NOTE | 2018-11-11 18:04 | Diag Imaging Result Doc PS360 ---
EXAM: CT THORAX/ABDOMEN W/O CONTRAST HISTORY: s/p cardiac arrest during colonoscopy TECHNIQUE: 1. CT chest without contrast 2. CT abdomen without contrast COMPARISON: Chest compared to 04/10/2018 FINDINGS: Chest: The heart is enlarged. Moderate to large pericardial effusion measuring 1.6 cm posteriorly on the left. Overall the pericardial effusion is smaller than on the prior study. Trace pleural fluid. No thoracic aortic aneurysm. Endotracheal tube in good position. There are multiple calcified mediastinal and hilar nodes. Atelectasis in the lower lungs versus tiny infiltrates. No consolidation. There is vascular distention. ABDOMEN: The gallbladder has been removed. No focal hepatic abnormality identified on this noncontrasted exam. Normal spleen, pancreas, and adrenal glands. No renal stones or hydronephrosis. No aortic aneurysm. No bowel obstruction. No ascites. There is a fat filled umbilical hernia. Nasogastric tube with an adjacent wire enter the stomach. No free air. IMPRESSION: Chest: Marked cardiomegaly with a moderate pericardial effusion with trace pleural fluid and pulmonary edema as well as basilar atelectasis. ABDOMEN: No acute abnormality This exam was performed using automated exposure control, adjustment of mA or kV according to patient size, and/or use of iterative reconstruction technique. Electronically signed by Jhonny Sanchez 11/11/2018 6:02 PM
[2018-11-11] MEDS ORDERED: FENTANYL IV ONE (18:15)
[2018-11-11] MEDS ORDERED: LOVENOX SUBQ SCH (18:15)
[2018-11-11] MEDS ORDERED: SODIUM PHOSPHATE 20 MMOL in NS 250 ML IV PRN (18:15)
[2018-11-11] MEDS ORDERED: SODIUM PHOSPHATE 10 MMOL in NS 250 ML IV PRN (18:15)
[2018-11-11] MEDS ORDERED: POTASSIUM CHLORIDE 60 MEQ in NS 500 ML IV PRN (18:15)
[2018-11-11] MEDS ORDERED: MAGNESIUM SULFATE 2 GM in STERILE WATER INJ. 50 ML IV PRN (18:15)
[2018-11-11] MEDS: PEPCID IV SCH (18:23)
[2018-11-11] MEDS: ATIVAN IV SCH ×2 (18:23→23:06)
[2018-11-11] MEDS: SODIUM CHLORIDE 0.9% INJ SCH (18:24)
[2018-11-11] MEDS: LACRI-LUBE OPH OINT BOTH EYES SCH (18:24)
[2018-11-11] MEDS ORDERED: NITROGLYCERIN 50 MG/D5W 50 MG/250 ML IV.SOLN IV SCH (19:00)
[2018-11-11] MEDS: FENTANYL 1,000 MICROGM in NS 80 ML IV SCH (19:06)
[2018-11-11] MEDS: NIMBEX 80 MG in NS 160 ML IV SCH ×2 (19:06→23:46)
--- NOTE | 2018-11-11 19:14 | HISTORY AND PHYSICAL ---
SWEATBAND FLANGER: Dr. Darryl Bonner. PRIMARY CARE PHYSICIAN: Dr. Kadeem Ruff. CHIEF COMPLAINT: Cardiac arrest. HISTORY OF PRESENT ILLNESS: Mrs. Brooks is a 63-year-old -[place] female with a history of ESRD, on hemodialysis Saturday, Saturday, and Saturday. 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 She had a colonoscopy done by Dr. Joan Mehta a few months ago that showed poor prep and adenomatous polyp. She was here today for followup routine screening by Dr. Heath. She was under monitored anesthesia care and as Dr. Heath was initiating colonoscopy, she became bradycardic and apparently went pulseless. One round of epinephrine was given as well as chest compressions for roughly two minutes until they regained ROSC. At that time the procedure was cancelled and her sedation was reversed. She was initially doing well and then started to go into respiratory failure, ultimately requiring intubation. Since that time, labs and diagnostics have been done and she actually has fairly unremarkable labs with the exception of a massively elevated proBNP and of course her creatinine elevation. Blood gas thus far has revealed hypercapnic respiratory failure. Chest x-ray does show cardiomegaly with no definite pulmonary edema, but there is left pleural effusion. She has also initially required Darell-Synephrine for blood pressure control. She is afebrile. Per the family, there are really no complaints prior to the procedure. Because of her cardiac arrest and respiratory failure requiring intubation, she has been placed in the ICU. We are going to admit her for further treatment and evaluation. PAST MEDICAL HISTORY: 1. ESRD, on hemodialysis Saturday, Saturday, and Saturday. 2. COPD. 3. Type 2 diabetes requiring insulin. 4. History of cardiac tamponade, status post window. 5. Systolic heart failure with EF 30% to 40%. 6. Hyperlipidemia. 7. Chronic anemia. 8. GERD. 9. 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 PAST SURGICAL HISTORY: Cataract surgery, skull base lytic lesion with radiation, AV fistula placement, back surgery, cholecystectomy, hysterectomy, pericardial window SOCIAL HISTORY: No tobacco, alcohol or drug use. FAMILY HISTORY: Noncontributory. REVIEW OF SYSTEMS: Unable to be obtained at this time as the patient is intubated. HOME MEDICATIONS: AccuNeb as needed, Bentyl 20 mg p.o. four times a day, Coreg 6.25 mg p.o. b.i.d., glipizide ER 10 mg daily, glargine insulin 15 units subcutaneously as needed, Lasix 40 mg daily, MiraLAX 17 grams daily, ProAir HFA 90 mcg inhaled as needed, Sensipar 60 mg p.o. daily, Zestril 20 mg b.i.d., Zofran 8 mg as needed. ALLERGIES: Shellfish, Bactrim, tramadol, aspirin, and penicillin. PHYSICAL EXAMINATION: VITAL SIGNS: Blood pressure is 139/101, heart rate is 67, respiratory rate is 16, O2 saturation 100% on 100% mechanical ventilation, temperature is 97.2. GENERAL: This is an obese female lying in the hospital bed intubated and sedated. NEUROLOGIC: She was given small dose of paralytic and anesthetic prior to intubation, thus she is chemically sedated at this time. HEENT: Head is atraumatic and normocephalic. Her pupils are equal, but sluggish. Oral mucosa is moist. NECK: Trachea is midline. There is no unilateral neck edema. CHEST: Coarse breath sounds bilaterally. CARDIOVASCULAR: Regular rate and rhythm. S1, S2 is noted. No appreciable murmurs. GASTROINTESTINAL: Soft. Bowel sounds are hypoactive. There is no distention or rigidity. EXTREMITIES: No edema. Pulses 1+ bilaterally. DIAGNOSTIC DATA: EKG with sinus tachycardia with PVCs. Chest x-ray at 1511 shows ET tube in good position; small left pleural effusion or pleural thickening; heart is enlarged; no definite pulmonary edema. Chest x-ray at 1618 shows two catheters overlying the esophagus; alternatively, there is one catheter coiled in the stomach with the tip coming back up the esophagus, there is also a left subclavian line with the tip beyond the x-ray in the jugular vein. WBC 8.84. Hemoglobin 12.1. Hematocrit 41. MCV 103.3. Platelet count 265. INR 1.04. ABG on 100% mechanical ventilation, pH 7.26, CO2 56, O2 330, bicarbonate 22.7. Sodium 134. Potassium 3.8. Chloride 97. CO2 26. Anion gap 11. BUN 27. Creatinine 5.4. Calcium 8.7. Phosphorus 5.2. Magnesium 2.2. Bilirubin 0.2. AST 122. ALT 116. Alkaline phosphatase 113. CK 224. CK-MB 4.7. Troponin 0.093. proBNP 27,222. Protein 6.2. Albumin 4.1. ASSESSMENT AND PLAN: 1. Cardiac arrest during colonoscopy: Likely this represents a respiratory failure, possibly obstruction due to sedation and collapsed airway which ultimately caused cardiac arrest. We will continue to evaluate all etiologies. We are checking an echo, trending her cardiac enzymes, and consulting Cardiology. We will also check a head, thorax, abdomen, and pelvis CT to evaluate for any catastrophic injury. Patient meets criteria for hypothermia protocol. We are ordering a head CT and will pursue hypothermia protocol in accordance with guidelines 2. Acute on chronic hypercapnic and hypoxic respiratory failure requiring intubation: Continue breathing treatments, aggressive pulmonary toilet and antibiotics renally dosed. Pulmonary has been consulted. 3. End-stage renal disease on hemodialysis: Interestingly her acid-base balance is stable. She is slightly overloaded but nothing critical. There are no indications for acute dialysis today. Will consult Dr. Bonner. Follow her input and output and daily weights as well as all of her daily labs. 4. History of mild systolic heart failure: She does not appear to be in overt failure at this time. We are rechecking an echo and trending her enzymes, consulting Cardiology. She does have a history of pericardial effusion resulting in tamponade requiring a window procedure. This will be evaluated during echo, and, if significant, will consult surgery. 5. H/o osteolytic lesion to the right mastoid region: Unclear as to the significance. Apparently she has had a gamma knife in the past and was also evaluated by Dr. Laguerre and Dr. Whittaker during a previous admission. A head CT is pending, we will also try to obtain more history from the family regarding the status of this lesion. 6. Diabetes mellitus: Add patterned sugars and sliding scale insulin. Further recommendations to follow. Pt is full code. ICU PPx with protonix and lovenox (renally dosed). Critical care time with this patient is greater than one hour. Dictated by MALINA Rose for Rika Paul MD cc: MALINA Rose MD I performed a face to face encounter on the patient. I reviewed all labs and imaging on the patient. I agree with the H&P as dictated. [facility]
[2018-11-11] MEDS: DUONEB (A & A) INH SCH ×2 (19:30→23:30)
[2018-11-11] MEDS ORDERED: HUMULIN R SUBQ SCH (21:00)
[2018-11-11 21:13] LABS: CALCIUM 7.9 mg/dL (8.8-10.2); POTASSIUM 3.9 mmol/L (3.5-5.1)
[2018-11-11 21:32] LABS: CREATININE 5.6 mg/dL (0.5-0.9)
[2018-11-11 21:32] LABS: URINE SOURCE CATH
[2018-11-11] MEDS: MAXIPIME 0.5 GM in NS 50 ML IV SCH (21:41)
[2018-11-11 21:43] LABS: BILIRUBIN URINE NEGATIVE (NEGATIVE); BLOOD URINE MODERATE (NEGATIVE); COLOR YELLOW; GLUCOSE URINE TRACE mg/dL (NEGATIVE); KETONE URINE TRACE mg/dL (NEGATIVE); LEUKOCYTES URINE SMALL (NEGATIVE); NITRITE URINE NEGATIVE (NEGATIVE); PROTEIN URINE 600 mg/dL (NEGATIVE); SP GRAVITY URINE 1.015; TURBIDITY URINE HAZY (CLEAR); UROBILINOGEN URINE NORMAL (NORMAL)
[2018-11-11 21:44] LABS: UR EPITHELIAL CELLS >10 /HPF (<10); URINE BACTERIA NEGATIVE /HPF; URINE RBC 20-40 /HPF (<10)
[2018-11-11 21:48] LABS: URINE SMALL ROUND CELLS NONE SEEN; URINE YEAST NONE SEEN
[2018-11-11 21:48] LABS: CK INDEX 2.4 (0.0-2.5); CK-MB 4.95 ng/mL (0.0-5.0)
[2018-11-12] MEDS ORDERED: HUMULIN R 100 UNIT in NS 100 ML IV SCH ×2 (00:15→23:57)
[2018-11-12] MEDS ORDERED: HUMULIN R IV ONE (00:21)
[2018-11-12] MEDS: HUMULIN R 100 UNIT in NS 100 ML IV SCH ×2 (00:54→23:55)
[2018-11-12] MEDS: LACRI-LUBE OPH OINT BOTH EYES SCH ×5 (01:01→23:48)
[2018-11-12] MEDS: ATIVAN IV SCH ×6 (01:54→21:15)
[2018-11-12 02:21] LABS: ALLEN TEST YES; BE -6.9 mmoll (-3.0-3.0); BLOOD TYPE ARTERIAL; HCO3-(ACT) 19.5 mmoll (20.0-26.0); METHB 1.3 % (0.0-1.5); O2(CT) 17.6 mL/dL (15.0-23.0); O2HB 95.4 % (95.0-99.0); PCO2(98.6) 40 mmHg (35-45); PO2(98.6) 124 mmHg (60-100); SAMPLE BLOOD; SAO2 97.1 % (95.0-100.0); SRATE 16 BPM; TVOL 450 mL; pH(98.6) 7.29 (7.35-7.45)
[2018-11-12 02:25] LABS: MODALITY VENTILATOR
[2018-11-12] MEDS: NIMBEX 80 MG in NS 160 ML IV SCH ×2 (03:31→17:05)
[2018-11-12] MEDS: DUONEB (A & A) INH SCH ×6 (03:38→23:30)
[2018-11-12 03:47] LABS: INR 1.04; PROTIME 14.4 Seconds (11.0-16.0)
[2018-11-12 03:58] LABS: BASO# 0.03 X1000 (0.0-0.2); BASO% 0.4 % (0.0-0.8); EOS# 0.02 X1000 (0.0-0.7); EOS% 0.3 % (0.0-10.0); HEMATOCRIT 40.8 % (37.0-47.0); HEMOGLOBIN 13.3 g/dL (12.0-16.0); IMM GRAN# 0.03 X1000 (0.0-0.04); IMM GRAN% 0.4 % (0.0-0.5); LYMPH# 0.88 X1000 (1.2-3.4); LYMPH% 12.8 % (20.5-51.1); MCH 32.2 PG (27-31); MCHC 32.6 g/dL (33-37); MCV 98.8 FL (81-99); MONO# 0.57 X1000 (0.11-0.59); MONO% 8.3 % (1.7-9.3); NEUT# 5.37 X1000 (1.4-6.5); NEUT% 77.8 % (42.2-75.2); PLT 176 X1000 (130-400); RBC 4.13 XMIL (4.2-5.4); RDW 15.7 % (11.5-14.5)
[2018-11-12 04:02] LABS: MAGNESIUM 2.1 mg/dL (1.5-2.7); PHOSPHORUS 4.7 mg/dL (2.7-4.5)
[2018-11-12 04:04] LABS: CALCIUM 8.6 mg/dL (8.8-10.2); POTASSIUM 3.7 mmol/L (3.5-5.1)
[2018-11-12 04:08] LABS: CREATININE 5.6 mg/dL (0.5-0.9)
[2018-11-12 04:59] LABS: ALLEN TEST YES; BE -2.3 mmoll (-3.0-3.0); BLOOD TYPE ARTERIAL; O2(CT) 17.1 mL/dL (15.0-23.0); O2HB 93.4 % (95.0-99.0); PCO2(98.6) 32 mmHg (35-45); PO2(98.6) 67 mmHg (60-100); SAMPLE BLOOD; SAO2 94.9 % (95.0-100.0); SRATE 16 BPM; TVOL 450 mL; pH(98.6) 7.43 (7.35-7.45)
[2018-11-12 05:00] LABS: MODALITY VENTILATOR
[2018-11-12] MEDS: PEPCID IV SCH (05:25)
[2018-11-12] MEDS: SODIUM CHLORIDE 0.9% INJ SCH (05:25)
[2018-11-12 06:06] LABS: BASO# 0.03 X1000 (0.0-0.2); BASO% 0.5 % (0.0-0.8); EOS# 0.03 X1000 (0.0-0.7); EOS% 0.5 % (0.0-10.0); HEMOGLOBIN 12.2 g/dL (12.0-16.0); IMM GRAN# 0.02 X1000 (0.0-0.04); IMM GRAN% 0.4 % (0.0-0.5); LYMPH# 0.94 X1000 (1.2-3.4); LYMPH% 16.5 % (20.5-51.1); MCH 30.8 PG (27-31); MCHC 31.3 g/dL (33-37); MCV 98.5 FL (81-99); MONO# 0.56 X1000 (0.11-0.59); MONO% 9.9 % (1.7-9.3); NEUT% 72.2 % (42.2-75.2); PLT 193 X1000 (130-400); RBC 3.96 XMIL (4.2-5.4); RDW 15.4 % (11.5-14.5); WBC 5.68 X1000 (4.8-10.8)
[2018-11-12] MEDS ORDERED: D50W SYRINGE IV ONE (06:11)
[2018-11-12] MEDS ORDERED: D50W SYRINGE ONE (06:13)
[2018-11-12 06:39] LABS: ALBUMIN 3.3 g/dL (3.5-5.0); CALCIUM 8.5 mg/dL (8.8-10.2); PHOSPHORUS 3.6 mg/dL (2.7-4.5); POTASSIUM 3.2 mmol/L (3.5-5.1)
[2018-11-12 06:50] LABS: CREATININE 6.2 mg/dL (0.5-0.9)
--- NOTE | 2018-11-12 07:22 | Diag Imaging Result Doc PS360 ---
EXAM: CHEST-PORTABLE 11/12/2018 HISTORY: cardiac arrest TECHNIQUE: AP portable at 0516 COMMENT: There is an endotracheal tube with its tip at the thoracic inlet and an NG tube which passes below the diaphragm. There is cardiomegaly. There is hazy opacity in both lower lobes which was not the case on 11/11/2018. IMPRESSION: Cardiomegaly and pulmonary edema. Electronically signed by Ricki Aviles 11/12/2018 7:20 AM
[2018-11-12] MEDS ORDERED: VANCOMYCIN 1 GM/NS 1 GM/250 ML IVPB IV SCH (07:30)
[2018-11-12] MEDS: POTASSIUM CHLORIDE 40 MEQ in NS 250 ML IV PRN ×2 (08:22→08:37)
--- NOTE | 2018-11-12 08:55 | NEPHROLOGY CONSULTATION ---
DATE: 11/12/2018 REASON FOR ADMISSION: Cardiac arrest. REASON FOR CONSULTATION: End-stage renal disease with assistance with medical management. HISTORY OF PRESENT ILLNESS: Ms. Brooks is a 63-year-old female who is known to our outpatient services for hemodialysis on Saturday, Saturday, Saturday at the [facility]. The patient had undergone a colonoscopy done by Dr. Joan Mehta several months ago and showed poor prep with adenomatous polyps. She presented for screening with Dr. Heath. She was monitored under anesthesia care. Dr. Heath was initiating the colonoscopy where patient essentially became bradycardic, went pulseless. They gave instant CPR, 1 round of epinephrine, approximately 2 minutes patient regained a pulse. The procedure was canceled. Her sedation was reversed. She was initially doing well. Unfortunately, she went into respiratory failure requiring intubation. Blood pressure was slightly elevated with elevated proBNP. Blood gases revealed hypercapnic respiratory failure. Chest x-ray showed cardiomegaly with no significant pulmonary edema, but there was a left pleural effusion. The patient did initially require Darell- Synephrine for blood pressure control. She was afebrile. She was transported to the ICU for further admission, observation and treatment. At this time, she is currently sedated with ventilatory support. No family is available. Unable to give any review of systems. She is known to us. PAST MEDICAL HISTORY: End-stage renal disease with hemodialysis on Saturday, Saturday, Saturday. 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 She has anemia of chronic disease. She has osteodystrophy of chronic disease. History of hyperphosphatemia. PAST SURGICAL HISTORY: Cataract surgery, skull base lytic lesions with radiation, AV fistula placement, back surgery, cholecystectomy, hysterectomy, pericardial window. SOCIAL HISTORY: The patient resides with her family who are attentive to her care. No tobacco, alcohol or illicit drug use. FAMILY HISTORY: Noncontributory for acute kidney or end-stage renal disease. ALLERGIES: Currently listed as shellfish, Bactrim, tramadol, aspirin and penicillin. HOME MEDICATIONS: Bentyl, Lasix Zofran, Sensipar, Dialyvite, AccuNeb, glipizide ER, Zestril, ProAir HFA, Coreg, Lantus, MiraLAX, metoclopramide, sevelamer carbonate. The patient also receives Rocaltrol, IV iron, and protein per outpatient clinic. REVIEW OF SYSTEMS: Unable to obtain per patient. Most obtained from previous history and charts. PHYSICAL EXAMINATION: Vital Signs: Her most recent vital signs, temperature 91.4 degrees, blood pressure 142/80, heart rate 64, respirations 16. She is on 40%. Her last recorded saturation is 98%. General: This is a 63-year-old female. She is resting quietly in bed, ventilator dependent. She is currently on hypothermia protocol per guidelines, cool to touch. Skin: Warm and dry. HEENT: Normocephalic, atraumatic. Conjunctiva not inspected. Patient has ointment on her eyes. Neck: Supple. Trachea midline. Oral ET tube remains in place. Negative JVD. Cardiovascular: She is regular rate and rhythm. No appreciable murmur. Lungs: Diminished with ventilatory support. Clear to auscultation anterior. Abdomen: Soft, nontender, positive bowel sounds. Patient has an NG tube to low intermittent suction. Genitourinary: Not inspected. Minimal void with dialysis assist. Figueroa catheter is in place. Extremities: Have no edema. No clubbing or cyanosis. Neurological: As mentioned above. INPUT AND OUTPUT: She has had 916 in, she has had 83 mL out to void. LABORATORIES: Sodium is 140, potassium is 3.2, chloride 104, CO2 21, BUN 35, creatinine 6.2, glucose is 67. The patient's anion gap is 15, her calcium is 8.5, phosphorus 3.6, albumin 3.3 with a magnesium of 1.9. White count 5.68, hemoglobin 12.2, hematocrit 39, platelet count 193,000. ABGs earlier in the morning, pH 7.43, CO2 32, PO2 67, bicarb 23, with a lactate of 1.2 on 40% FiO2. ASSESSMENT AND PLAN: 1. Chronic kidney disease stage 5D. Today is patient's routine normal dialysis treatment day. Secondary to her most recent cardiac event status post colonoscopy, we will hold on her dialysis treatment today so as not to worsen any neurologic deficits during this hypothermia episode. We will plan for dialysis in the morning. 2. Electrolytes. Patient has hypokalemia. We will give her 1 supplement per NG tube, evaluate laboratories in the a.m. 3. Acid-base balance. This is stable. 4. Anemia. This remains stable. 5. Cardiac arrest during colonoscopy. Patient remains on hypothermia protocol. Following guidelines. 6. Respiratory failure. Patient remains hypercapnic in hypoxic respiratory failure requiring intubation, followed by the primary care. I would like to thank you for allowing us to follow with this patient. Dictated by MALINA Vilchis for Darryl Bonner MD Face to face encounter, data reviewed, discussed with Didi Cortez on 11/12/18. I agree with the above assessment and plan of care. cc: MALINA Vilchis MD [facility]
--- NOTE | 2018-11-12 08:56 | ECHO REPORT ---
ORDER DATE: 11/11/2018 INTERPRETING PHYSICIAN: Dr. Alexander CLINICAL INDICATIONS: Cardiac arrest, history of cardiomyopathy. M-MODE MEASUREMENTS: Left ventricle end diastole: 4.6 cm. Left ventricle end systole: 3.4 cm. Posterior wall: 1.3 cm. Interventricular septum: 1.4 cm. Left atrium: 3.6 cm. Aortic root: 3.4 cm. SUMMARY OF 2-DIMENSIONAL IMAGING: This study is difficult. The left ventricular systolic function appears to be moderately impaired. Ejection fraction estimated in the range of 35-40%. At least, there is volume impairment at the level of the inferior wall suggesting coronary heart disease. The right ventricle is moderately enlarged with slightly increased function. Tricuspid valve shows moderate degree of regurgitation. Inferior vena cava is not dilated. Pulmonary pressure estimated at 44 mmHg. Pulmonic valve looks normal with mild to moderate degree of regurgitation. Aortic valve has 3 cusps. They open normally. Color flow mapping unremarkable. Mitral valve shows mild degree of regurgitation. The annulus does not seem to have significant calcification. Pulse wave Doppler of mitral inflow shows mild reversal of the E/A ratio. Ratio is 0.8. Tissue Doppler of septal and lateral mitral annulus averages 5 cm per second. There is impaired left ventricular relaxation. The left atrium is moderately enlarged. There is a small pericardial effusion. Adjacent to the posterolateral wall of the left ventricle, the effusion appears to be small to moderate. There is no indication of tamponade. The inferior vena cava is not dilated at all. SUMMARY: This study shows 1. Moderately impaired left ventricular systolic function, ejection fraction 35- 40%. I believe there is wall motion abnormality more so at the level of the inferior wall suggesting coronary heart disease. 2. Mild degree of mitral regurgitation. 3. Impaired left ventricular relaxation. 4. Pulmonary systolic pressure estimated at 44 mmHg. 5. Relatively small pericardial effusion with possibly a small to moderate area adjacent to the posterolateral wall of the left ventricle. There is no indication of pericardial tamponade.Consider repeating study when patient more stable. Clinical correction recommended. cc: MD José Talamantes CRNP MTDD
[2018-11-12] MEDS ORDERED: D50W SYRINGE IV PRN (09:47)
[2018-11-12] MEDS: D50W SYRINGE IV PRN ×3 (09:54→22:13)
[2018-11-12 10:49] LABS: ALLEN TEST YES; BE -2.3 mmoll (-3.0-3.0); BLOOD TYPE ARTERIAL; HCO3-(ACT) 23.1 mmoll (20.0-26.0); PCO2(98.6) 38 mmHg (35-45); PO2(98.6) 93 mmHg (60-100); SAMPLE BLOOD; SRATE 16 BPM; TVOL 450 mL; pH(98.6) 7.38 (7.35-7.45)
[2018-11-12 10:51] LABS: MODALITY VENTILATOR
--- NOTE | 2018-11-12 11:33 | CONSULTATION ---
DATE OF CONSULTATION: 11/12/2018 IMPRESSION: 1. Status post cardiopulmonary arrest following sedation and initiation of colonoscopy with bradycardia progressing to pulseless electrical activity. Suspect cardiopulmonary arrest most likely at least initially initiated by vagal stimulation. 2. Encephalopathy post cardiopulmonary arrest. Patient currently on a hypothermia protocol. 3. Cardiomyopathy of moderate severity. 4. Small pericardial effusion. 5. End-stage renal disease requiring chronic hemodialysis. 6. Type 2 diabetes mellitus requiring insulin. 7. Chronic obstructive pulmonary disease. RECOMMENDATIONS: 1. Continue supportive care as you are doing. 2. We will follow and assist accordingly. HISTORY: This 63-year-old -[place] female with past history of moderate cardiomyopathy, end-stage renal disease requiring hemodialysis, hypertensive cardiovascular disease, COPD, type 2 diabetes mellitus requiring insulin, and hyperlipidemia was admitted to the intensive care unit following cardiopulmonary arrest during initiation of colonoscopy. She is presently sedated, paralyzed and on hypothermic protocol. She is followed by Dr. Sommer for her cardiomyopathy. She has been fairly stable with this. She had initiation of sedation and initiation of colonoscopy yesterday to further evaluate an adenomatous polyp. As colonoscopy was initiated, she developed bradycardia progressing to pulseless electrical activity. She received epinephrine and CPR. Within a couple of minutes, she had return of spontaneous circulation. She has been in the intensive care unit on ventilator. She did not awaken or become responsive, and was started on hypothermic protocol. PAST MEDICAL HISTORY: 1. Moderate cardiomyopathy. 2. Hypertensive cardiovascular disease. 3. End-stage renal disease requiring chronic hemodialysis. 4. Chronic obstructive pulmonary disease. 5. Type 2 diabetes mellitus requiring insulin. 6. History of significant pericardial effusion in the past. Patient is status post pericardial window. 7. Hyperlipidemia. 8. Chronic anemia. 9. Gastroesophageal reflux disease. 10. History of osteolytic lesion in right mastoid region. PAST SURGICAL HISTORY: Includes cataract surgery, AV fistula placement, unspecified back surgery, cholecystectomy, hysterectomy, and pericardial window. She is also status post radiation therapy to lytic lesion at skull base. ALLERGIES: She has multiple drug allergies as listed. MEDICATIONS PRIOR TO ADMISSION: As listed. SOCIAL HISTORY: She does not smoke or use alcohol. FAMILY HISTORY: Negative for premature coronary disease. REVIEW OF SYSTEMS: Unable to obtain given patient being sedated. PHYSICAL EXAMINATION: General: This is an obese older female sedated and on ventilator. Vital Signs: Blood pressure 125/82, heart rate 66. Oxygen saturation 99%. HEENT: Mucous membranes are moist. Neck: Supple without jugular venous distention. Carotid bruits cannot be appreciated. Chest: Auscultation of the chest reveals coarse breath sounds bilaterally. No rales could be appreciated. Cardiac: Exam reveals a regular rate and rhythm without appreciable murmur or gallop. Abdomen: Soft. Bowel sounds audible. Extremities: Without edema. LABORATORY DATA: Includes a white blood cell count of 5.68, hematocrit 39.2, hemoglobin 12.2, and platelet count 193,000. Sodium 140, potassium 3.2, chloride 104, carbon dioxide 21, BUN 35, creatinine 6.2 glucose 67. Initial troponin 0.10. Followup troponin 0.130. Initial CPK 207. Followup CPK 144. CPK-MB 4.95 with CPK-MB index of 2.4. cc: Tomy Stanford MD
[2018-11-12] MEDS: FENTANYL 1,000 MICROGM in NS 80 ML IV SCH (12:00)
[2018-11-12 12:17] LABS: CALCIUM 8.2 mg/dL (8.8-10.2); CREATININE 5.9 mg/dL (0.5-0.9); POTASSIUM 4.6 mmol/L (3.5-5.1)
[2018-11-12] MEDS: PROTONIX IV SCH (15:48)
[2018-11-12 18:06] LABS: ALLEN TEST YES; BE -2.9 mmoll (-3.0-3.0); BLOOD TYPE ARTERIAL; HCO3-(ACT) 22.6 mmoll (20.0-26.0); METHB 0.8 % (0.0-1.5); O2HB 95.8 % (95.0-99.0); PCO2(98.6) 38 mmHg (35-45); PO2(98.6) 103 mmHg (60-100); SAMPLE BLOOD; SAO2 97.1 % (95.0-100.0); SRATE 16 BPM; THB 13.3 g/dL (11.5-17.4); TVOL 450 mL; pH(98.6) 7.37 (7.35-7.45)
[2018-11-12 18:07] LABS: MODALITY VENTILATOR
[2018-11-12 18:29] LABS: BASO# 0.02 X1000 (0.0-0.2); BASO% 0.4 % (0.0-0.8); EOS# 0.05 X1000 (0.0-0.7); HEMATOCRIT 40.2 % (37.0-47.0); IMM GRAN# 0.03 X1000 (0.0-0.04); IMM GRAN% 0.6 % (0.0-0.5); LYMPH# 0.62 X1000 (1.2-3.4); LYMPH% 12.1 % (20.5-51.1); MCH 31.3 PG (27-31); MCHC 32.3 g/dL (33-37); MCV 96.6 FL (81-99); MONO# 0.59 X1000 (0.11-0.59); MONO% 11.5 % (1.7-9.3); MPV 9.3 FL (7.4-10.4); NEUT% 74.4 % (42.2-75.2); PLT 162 X1000 (130-400); RBC 4.16 XMIL (4.2-5.4); RDW 15.5 % (11.5-14.5); WBC 5.11 X1000 (4.8-10.8)
--- NOTE | 2018-11-12 18:30 | GASTROENTEROLOGY CONSULTATION ---
DATE: 11/12/2018 HISTORY OF PRESENT ILLNESS: This is a 63-year-old, female, who was a former patient of Dr. Mehta, who had a colonoscopy several months ago with incomplete colonoscopy because of poor prep. She has history of adenomatous polyps. She came in for outpatient colonoscopy procedure by Dr. Heath yesterday. During initiation of procedure, she was adequately sedated. Procedure had been started and the scope was advanced to the transverse colon. At that time, patient became bradycardic and hypotensive along with O2 desaturation. The colonoscopy procedure was aborted and patient was coded and intubated and she is currently remaining in the ICU on hypothermia protocol. She is currently sedated and on a paralytic. The patient has been seen by cardiology and nephrology. PAST MEDICAL HISTORY: 1. Moderate cardiomyopathy. 2. Hypertensive cardiovascular disease. 3. End-stage renal disease on dialysis. She usually receives dialysis on Mondays, Wednesdays, and Fridays. 4. Chronic obstructive pulmonary disease. 5. Diabetes type 2. 6. Pericardial effusion in the past. 7. Hyperlipidemia. 8. History of anemia. 9. GERD. 10. Osteolytic lesion right mastoid region. PAST SURGICAL HISTORY: Cataract surgery. AV fistula placement for dialysis. Back surgery. Cholecystectomy, hysterectomy, pericardial window. History of radiation for lesion mastoid region. ALLERGIES: Shellfish causing itching. Bactrim, rash. Sulfa, swelling. Tramadol, fatigue. Aspirin, contraindicated due to renal disease. Penicillins, rash. HOME MEDICATIONS: Albuterol as needed. Coreg 6.25 mg twice a day. Sensipar 60 mg daily. Bentyl 20 mg 4 times a day. Dialyvite tablet daily, Lasix 40 mg daily, glipizide 10 mg daily. Lantus 15 units as needed. Zestril 20 mg twice a day. Metoclopramide 10 mg as needed, Zofran 8 mg as needed. MiraLAX 17 g daily as needed. Sevelamer carbonate 800 mg. SOCIAL HISTORY: No reported tobacco or alcohol use. REVIEW OF SYSTEMS: Per history of present illness. PHYSICAL EXAMINATION: Vital Signs: Temperature 90.7, on hypothermia protocol. Pulse 67, respirations 16 per ventilator. Blood pressure 110/71. Generally: Patient is sedated on a paralytic and on mechanical ventilation on hypothermia protocol. Status post cardiopulmonary arrest. HEENT: Normocephalic, atraumatic. Pupils equal, round, reactive to light. Respiratory: Some rhonchi noted bilaterally. Cardiovascular: Regular rate and rhythm. Abdomen: Soft. Positive bowel sounds. Extremities: No lower extremity edema noted. DIAGNOSTIC RESULTS: Laboratory: WBC 5.68, hemoglobin 12.2, hematocrit 39.0, MCV 98.5, platelet 193. Coagulation: ProTime 14.4, INR 1.04. Chemistry: Sodium 140, potassium 4.6, chloride 106, CO2 of 21, BUN 36, creatinine 5.9, glucose 115, calcium 8.2, phosphorus 3.6, magnesium 1.9. Total bilirubin 0.28, AST 122, ALT 116, alkaline phosphatase 113. Troponin 0.130. Amylase 259, lipase 18. TSH 2.81. ASSESSMENT AND PLAN: 1. Cardiac arrest during colonoscopy procedure. Continue supportive care. Patient is currently under hypothermia protocol. She is sedated. Has a paralytic on board and mechanical ventilation. 2. End-stage renal disease, on hemodialysis. Nephrology has been consulted for further management. 3. Cardiovascular disease. Patient has been seen by Cardiology. 4. Continue supportive care. Current management, hypothermia protocol. GI will be available as needed. I have discussed this case with Dr. Heath. Dictated by MALINA Elkins for Caden Heath MD cc: MALINA Dukse MD
[2018-11-12 18:32] LABS: INR 1.08; PROTIME 14.9 Seconds (11.0-16.0)
[2018-11-12 19:03] LABS: CALCIUM 8.2 mg/dL (8.8-10.2); CREATININE 5.9 mg/dL (0.5-0.9); PHOSPHORUS 4.6 mg/dL (2.7-4.5); POTASSIUM 3.7 mmol/L (3.5-5.1)
[2018-11-12] MEDS: HEPARIN SUBQ SCH (20:14)
[2018-11-12] MEDS ORDERED: NS 500 ML ONE (20:18)
[2018-11-12] MEDS: MAXIPIME 0.5 GM in NS 50 ML IV SCH (20:57)
[2018-11-12] MEDS: NEO-SYNEPHRINE 50 MG in NS 250 ML IV SCH (22:48)
[2018-11-13 00:39] LABS: CALCIUM 8.7 mg/dL (8.8-10.2); CREATININE 6.2 mg/dL (0.5-0.9); POTASSIUM 5.3 mmol/L (3.5-5.1)
[2018-11-13] MEDS ORDERED: D50W SYRINGE IV ONE (00:50)
[2018-11-13] MEDS ORDERED: HUMULIN R IV ONE (00:50)
[2018-11-13] MEDS ORDERED: SODIUM BICARBONATE 8.4% IV PUSH ONE (00:50)
[2018-11-13] MEDS ORDERED: CALCIUM GLUCONATE IV PUSH ONE (00:50)
[2018-11-13] MEDS ORDERED: ALBUTEROL 0.5% INH CONC FOR HYPERKALEMIA INH ONE (00:51)
[2018-11-13 02:10] LABS: ALLEN TEST YES; BE -5.8 mmoll (-3.0-3.0); BLOOD TYPE ARTERIAL; HCO3-(ACT) 20.4 mmoll (20.0-26.0); METHB 0.7 % (0.0-1.5); MODALITY VENTILATOR; O2(CT) 16.8 mL/dL (15.0-23.0); O2HB 95.8 % (95.0-99.0); PCO2(98.6) 40 mmHg (35-45); PO2(98.6) 96 mmHg (60-100); SAMPLE BLOOD; SAO2 98.7 % (95.0-100.0); SRATE 16 BPM; THB 12.4 g/dL (11.5-17.4); TVOL 450 mL; pH(98.6) 7.31 (7.35-7.45)
[2018-11-13 02:53] LABS: INR 0.97; PROTIME 13.7 Seconds (11.0-16.0)
[2018-11-13 02:55] LABS: BASO# 0.01 X1000 (0.0-0.2); BASO% 0.1 % (0.0-0.8); EOS# 0.03 X1000 (0.0-0.7); EOS% 0.4 % (0.0-10.0); HEMATOCRIT 41.8 % (37.0-47.0); HEMOGLOBIN 13.6 g/dL (12.0-16.0); IMM GRAN# 0.03 X1000 (0.0-0.04); IMM GRAN% 0.4 % (0.0-0.5); LYMPH# 0.48 X1000 (1.2-3.4); LYMPH% 5.8 % (20.5-51.1); MCH 31.1 PG (27-31); MCHC 32.5 g/dL (33-37); MCV 95.4 FL (81-99); MONO# 0.79 X1000 (0.11-0.59); MONO% 9.6 % (1.7-9.3); MPV 9.7 FL (7.4-10.4); NEUT# 6.91 X1000 (1.4-6.5); NEUT% 83.7 % (42.2-75.2); PLT 227 X1000 (130-400); RBC 4.38 XMIL (4.2-5.4); RDW 15.8 % (11.5-14.5); WBC 8.25 X1000 (4.8-10.8)
[2018-11-13 02:58] LABS: PHOSPHORUS 5.1 mg/dL (2.7-4.5)
[2018-11-13] MEDS: ATIVAN IV SCH ×4 (03:05→21:34)
[2018-11-13] MEDS: DUONEB (A & A) INH SCH ×6 (03:30→23:30)
--- NOTE | 2018-11-13 03:51 | CONSULTATION ---
DATE OF CONSULTATION: 11/12/2018 REASON FOR CONSULTATION: Hypercapnic respiratory failure, ventilator. HISTORY OF PRESENT ILLNESS: This is a 63-year-old female with a medical history of obesity, obstructive sleep apnea, COPD, cardiac tamponade, systolic heart failure, end-stage renal disease, diabetes, hypertension, hyperlipidemia, gastroesophageal reflux disease, anemia, skull base lytic lesion and right mastoid osteolytic lesion. She had a colonoscopy by Dr. Heath yesterday to further evaluate an adenomatous polyp. During the initiation of this procedure patient became bradycardic, hypotensive and desaturated. She eventually developed cardio pulmonary arrest. She regained in 2 minute after 1 round of epinephrine. She was then transferred to the ICU for further evaluation and management. CT without contrast revealed marked cardiomegaly with a moderate pericardial effusion with trace pleural fluid and pulmonary edema as well as basilar atelectasis. At the time of my examination, patient is lying in bed, intubated, sedated and paralyzed with a [employer] cooling blanket in place. She is on fentanyl, nitro, nimbex and insulin drips. Her respiration is even and unlabored. Her current temperature is 33.6 degrees Celsius at this time. There is no family at the bedside. All other information is obtained from the E-chart. PAST MEDICAL/SURGICAL HISTORY: 1. Obesity. Current BMI is 34.9. 2. Obstructive sleep apnea, on CPAP therapy at home. 3. COPD. 4. History of cardiac tamponade status post pericardial window. 5. Systolic heart failure with EF 35 to 40 percent based on the echocardiogram on 11/11/2018. 6. End-stage renal disease, on hemodialysis. 7. Diabetes mellitus type 2, insulin dependent. 8. Hypertension. 9. Hyperlipidemia. 10. Gastroesophageal reflux disease. 11. Anemia of chronic disease. 12. Skull base lytic lesions, status post radiation therapy over [address] Sampson. 13. Right mastoid osteolytic lesion with negative SPEP and negative bone scan, follow up with ENT. 14. Hysterectomy. 15. Cholecystectomy. 16. Back surgery. 17. Cataract surgery. 18. AV fistula placement. SOCIAL HISTORY: The patient is a former smoker. She has no history of alcohol or illicit drug use. FAMILY HISTORY: Positive for coronary artery disease. ALLERGIES: Shellfish, sulfa, Bactrim, tramadol, aspirin, penicillins. REVIEW OF SYSTEMS: Unable to be obtained. PHYSICAL EXAMINATION: Vital Signs: Temperature 92.5 degrees, blood pressure 148/86, pulse 65, respiratory rate 16, oxygen saturation 100% on AC mechanical ventilator with spontaneous rate 16, FiO2 40%, tidal volume 450, and PEEP 5. General: Patient is lying in bed with no acute respiratory distress. She is on a cooling blanket at this time. HEENT: Atraumatic, trachea midline. Mucosa pink and moist. Mild facial swelling noted. Respiratory: Even and unlabored. Symmetrical excursion. Auscultation reveals coarse breathing sounds with inspiratory crackles bibasilarly. Cardiovascular: Regular rate and rhythm. Gastrointestinal: Bowel sounds present in all 4 quadrants. Soft and obese. Extremities: No pedal edema. No cyanosis. No clubbing. Neurologic: Sedated and unresponsive to verbal or physical stimuli. LAB DATA: White blood cell 5.68, hemoglobin 12.2, hematocrit 39.0, platelet 193,000. Sodium 140, potassium 3.2, chloride 104, carbon dioxide 21, BUN 35, creatinine 6.2, glucose 67. ABG: PH 7.43, pCO2 of 32, PO2 67, HC03 23.0, base excess -2.3, and oxyhemoglobin 93.4. IMAGING DATA: Chest x-ray revealed cardiomegaly and pulmonary edema. ASSESSMENT: This is a 63-year-old female with a medical history of obesity, obstructive sleep apnea, chronic obstructive pulmonary disease , cardiac tamponade, systolic heart failure, end-stage renal disease, diabetes, hypertension, hyperlipidemia, gastroesophageal reflux disease, anemia, skull base lytic lesion in the right mastoid osteolytic lesion. She has been admitted to the ICU since yesterday after old cardiopulmonary arrest during the colonoscopy. 1. Acute hypoxemic hypercapnic respiratory failure requiring intubation, pCO2 is improved to 38 this morning. 2. Chronic obstructive pulmonary disease. No exacerbation at this time 3. Status post cardiopulmonary arrest. 4. Systolic heart failure with small pericardial effusion. ProBNP 27,222 yesterday. 5. Encephalopathy. 6. End-stage renal disease requiring chronic hemodialysis. PLAN: 1. Continue AC mechanical ventilator and we will start weaning trials when appropriate. 2. Continue 2 broad spectrum antibiotics and bronchodilators. 3. Follow up with ABG, CBC, BMP, chest x-ray, Blood culture, urine culture and sputum culture. 4. Dr. Bonner and Dr. Stanford are on board 5. Continue gastrointestinal and deep venous thrombosis prophylaxis. 6. Further recommendations for pending hospital course. Thank you for the courtesy of this consult. (I met patient's today. He reports that before colonoscopy, patient had been having SOB for several days. He tried to send her to the ER, but she refused.) Dictated by MALINA Oliva for Deborah Zapata MD cc: MALINA Oliva MD [facility]
--- NOTE | 2018-11-13 04:00 | PROGRESS NOTE ---
DATE: 11/12/2018 SUBJECTIVE: The patient is currently on the hypothermia protocol on the ventilator. She is sedated and paralyzed. OBJECTIVE: Vital Signs: Temperature 91 degrees, blood pressure 133/81, heart rate 71, respirations 16, O2 saturation 99% on the mechanical ventilator. General: This is a morbidly obese female, currently sedated and paralyzed on the ventilator. Head: The patient has extensive periorbital edema. Heart: S1, S2 normal. Regular rate and rhythm. Lungs: Equal air entry bilaterally with diminished breath sounds. Abdomen: Hypoactive bowel sounds. Soft, nontender, nondistended. Extremities: Right arm has AV fistula. no cyanosis. Neurologic:The patient is sedated on the ventilator. DIAGNOSTIC STUDIES: White blood cell count 5.6, hemoglobin 12, hematocrit 39, platelets 193,000. Sodium 140, potassium 4.6, chloride 106, CO2 of 21, BUN 36, creatinine 5.9, glucose 115. INR 1. Chest x-ray shows pulmonary edema and cardiomegaly. Echocardiogram shows an EF of 35% to 40%. Impaired left ventricular relaxation. Small pericardial effusion. ASSESSMENT AND PLAN: 1. Acute hypoxemic respiratory failure. The patient is currently on the hypothermia protocol. We will continue with ventilator management as directed by the cascade operator. 2. Status post cardiopulmonary arrest following administration of sedation during the colonoscopy. The patient's echocardiogram was reviewed. Cardiology is following. 3. Small pericardial effusion. No evidence of tamponade. Cardiology will continue to follow. 4. End stage renal disease. Management as per the emission technician. 5. Chronic obstructive pulmonary disease. Aware. Continue with bronchodilator therapy. 6. Encephalopathy. The patient's initial head CT following the arrest is unremarkable. We will reassess the patient's mental status once she is rewarmed and off of the hypothermia protocol. 7. Gastrointestinal prophylaxis. Continue on Protonix. 8. Deep vein thrombosis prophylaxis. Continue on heparin. cc: Rika Paul MD [facility]
[2018-11-13 04:12] LABS: ALB/GLOB RATIO 0.9; ALBUMIN 3.1 g/dL (3.5-5.0); ALBUMIN 3.5 g/dL (3.5-5.0); ALKALINE PHOSPHATASE 95 U/L (32-104); CALCIUM 8.2 mg/dL (8.8-10.2); CREATININE 6.6 mg/dL (0.5-0.9); DIRECT BILIRUBIN < 0.10 mg/dL (0.00-0.20); GOT 65 U/L (10-30); GPT 73 U/L (10-36); PHOSPHORUS 5.2 mg/dL (2.7-4.5); POTASSIUM 3.7 mmol/L (3.5-5.1); TOTAL BILIRUBIN 0.21 mg/dL (0.20-1.00); TOTAL PROTEIN 6.4 g/dL (6.3-8.3)
[2018-11-13] MEDS ORDERED: LOPRESSOR IV ONE ×2 (04:49→05:36)
[2018-11-13] MEDS ORDERED: LOPRESSOR ONE (04:58)
[2018-11-13 05:01] LABS: ALLEN TEST YES; BE -9.9 mmoll (-3.0-3.0); BLOOD TYPE ARTERIAL; HCO3-(ACT) 17.1 mmoll (20.0-26.0); O2(CT) 18.4 mL/dL (15.0-23.0); O2HB 93.2 % (95.0-99.0); PO2(98.6) 91 mmHg (60-100); SAMPLE BLOOD; SAO2 94.4 % (95.0-100.0); SRATE 16 BPM; TVOL 450 mL
[2018-11-13 05:03] LABS: MODALITY VENTILATOR; PCO2(98.6) 54 mmHg (35-45); pH(98.6) 7.16 (7.35-7.45)
[2018-11-13 05:07] LABS: BASO# 0.03 X1000 (0.0-0.2); BASO% 0.2 % (0.0-0.8); EOS# 0.07 X1000 (0.0-0.7); EOS% 0.5 % (0.0-10.0); HEMATOCRIT 41.5 % (37.0-47.0); HEMOGLOBIN 13.2 g/dL (12.0-16.0); IMM GRAN# 0.08 X1000 (0.0-0.04); IMM GRAN% 0.5 % (0.0-0.5); LYMPH# 1.04 X1000 (1.2-3.4); LYMPH% 6.8 % (20.5-51.1); MCH 31.1 PG (27-31); MCHC 31.8 g/dL (33-37); MCV 97.9 FL (81-99); MONO# 1.31 X1000 (0.11-0.59); MONO% 8.6 % (1.7-9.3); NEUT# 12.79 X1000 (1.4-6.5); NEUT% 83.4 % (42.2-75.2); PLT 283 X1000 (130-400); RBC 4.24 XMIL (4.2-5.4); RDW 16.1 % (11.5-14.5); WBC 15.32 X1000 (4.8-10.8)
[2018-11-13] MEDS: LACRI-LUBE OPH OINT BOTH EYES SCH (05:24)
[2018-11-13] MEDS ORDERED: NS 2,000 ML MISC PRN (06:01)
[2018-11-13] MEDS: ATIVAN 20 MG in NS 190 ML IV SCH ×2 (06:30→10:53)
--- NOTE | 2018-11-13 07:33 | Diag Imaging Result Doc PS360 ---
EXAM: CHEST-PORTABLE 11/13/2018 HISTORY: cardiac arrest TECHNIQUE: AP portable at 0515 COMMENT: There is an NG tube passing below the diaphragm. There is cardiomegaly. There is opacification of the retrocardiac left lower lobe and there is some atelectasis or pneumonia in the right lower lobe. The latter has improved since 11/12/2018. IMPRESSION: Cardiomegaly. Atelectasis versus pneumonia. Improved pneumonia versus pulmonary edema. Electronically signed by Ricki Aviles 11/13/2018 7:31 AM
--- NOTE | 2018-11-13 08:35 | NEPHROLOGY PROGRESS NOTE ---
DATE: 11/13/2018 DATE AND TIME SEEN: 11/13/2018 at 0615. SUBJECTIVE: Ms. Brooks remains ventilator dependent. She does open her eyes to verbal stimuli. OBJECTIVE: MOST RECENT VITAL SIGNS: Her last temperature 95.6 degrees, blood pressure is 104/61, heart rate 114, respirations are 19. She is on 50% FiO2. Her last recorded saturation is 94%. She has had 688 in. She has only had 90 mL out with plans for dialysis today. LABORATORY DATA: Sodium is 139, potassium 3.7, chloride 102, CO2 16, BUN 38, creatinine 6.6, glucose 157. The patient has an anion gap of 21, her calcium is 8.2, phosphorus 5.1, albumin of 3.5 with magnesium of 2. AST is elevated at 65, ALT 73, direct bilirubin less than 0.1. White count 15.32, hemoglobin 13.2, hematocrit 41.5 with a platelet count of 283,000. ABGs, pH 7.16, CO2 54, PO2 91, bicarb 17.1. The patient has a lactate of 4.8. This is on 40% FiO2. PHYSICAL EXAMINATION: General: This is a 63-year-old female. She is resting quietly in bed. She appears in no acute distress. Skin: Warm and dry. HEENT: Normocephalic, atraumatic. Conjunctivae is pink. She has ELIZABETH. Mucous membranes are dry. Oral ET tube remains in place. Neck: Supple. Trachea midline. No evidence of JVD. Cardiovascular: She is regular rate and rhythm. She is tachycardic on the monitor. No appreciable murmur. Lungs: Diminished breath sounds with ventilatory support. Coarse. Abdomen: Soft, nontender. Positive bowel sounds. NG tube remains to low intermittent suction. Extremities: Continues with 2+ lower extremity edema. Neurological: As above. ASSESSMENT AND PLAN: 1. Chronic kidney disease stage 5D. The patient is in need of dialysis today. We will place her on SLED. She will be on a 4 K bath she is to dialyze for 8 hours. We will attempt to pull 2 to 3 L of ultrafiltration as tolerated. 2. Electrolytes and acid-base balance. These are acceptable with correction on dialysis. 3. Anemia. This is in target. 4. Cardiac arrest, status post colonoscopy. The patient has just completed her hypothermia protocol within the last hour. 5. Respiratory failure. The patient remains hypoxic. She remains on the ventilator. Followed by Pulmonology and the primary care. I would to thank you for allowing us to follow with this patient. Dictated by MALINA Vilchis for Darryl Bonner MD Face to face encounter, data reviewed, discussed with Didi Cortez on 11/14/18. I agree with the above assessment and plan of care. cc: MALINA Vilchis MD [facility]
[2018-11-13] MEDS: HEPARIN SUBQ SCH ×2 (08:39→20:32)
[2018-11-13] MEDS: HUMULIN R SUBQ SCH ×3 (10:45→20:42)
[2018-11-13] MEDS: NEO-SYNEPHRINE 50 MG in NS 250 ML IV SCH (14:06)
[2018-11-13] MEDS ORDERED: HEPARIN IV PRN (14:30)
[2018-11-13] MEDS ORDERED: TIGHT: 0.2 ML/HR FOR DIALYSIS MISC PRN (14:30)
[2018-11-13] MEDS: NS IV SCH ×2 (14:40→21:34)
--- NOTE | 2018-11-13 15:29 | PROGRESS NOTE ---
DATE: 11/13/2018 SUBJECTIVE: The patient has been rewarmed. She remains on the ventilator, on an Ativan drip. She is moving around and is very restless. OBJECTIVE: Vital Signs: Temperature 99.8 degrees, blood pressure 95/59, heart rate 113, respirations 20, O2 saturation is 98% on the mechanical ventilator. General: This is a chronically ill-appearing, elderly female, currently sedated on the ventilator. Head: Normocephalic, atraumatic. Eyes: The patient does have periorbital edema. Heart: S1, S2 normal. Tachycardic. Lungs: Equal air entry bilaterally. No crackles. No rales. Abdomen: Positive bowel sounds. Soft, nontender, nondistended. Extremities: No edema. No cyanosis. Neurologic: The patient is currently sedated on the ventilator. LABS: White blood cell count 15, hemoglobin 13, hematocrit 41, platelets 283. ABG, pH of 7.16, pCO2 54, PO2 91. Sodium 139, potassium 3.7, chloride 102, CO2 16, BUN 38, creatinine 6.6, glucose 157, AST 65, ALT 73. Chest x-ray shows improved pulmonary edema versus pneumonia. Sputum cultures growing Branhamella catarrhalis. ASSESSMENT AND PLAN: 1. Acute hypoxemic respiratory failure, status post cardiac arrest. The patient is now sedated with an Ativan drip. Further vent management as per the full stack php developer. 2. Status post cardiopulmonary arrest with the hypothermia protocol. The patient has been rewarmed and remains ventilator dependent at this time. Cardiology is following. Continue with supportive care. 3. Small pericardial effusion. Aware. 4. Pneumonia. The patient is on broad-spectrum antibiotics. The sputum culture is growing Branhamella catarrhalis. We will continue with cefepime. Will consult with Dr. Kumar. 5. End stage renal disease. Management as per the Machinist Apprentice [employer]. 6. Encephalopathy. The patient is moving around and is very restless. I am unable to assess her ability to follow commands at this time. We will continue to monitor the patient closely. 7. Chronic obstructive pulmonary disease. Continue with bronchodilator therapy. 8. Gastrointestinal prophylaxis. Continue on Protonix. 9. Deep vein thrombosis prophylaxis. Continue on heparin. cc: Rika Paul MD [facility]
[2018-11-13] MEDS: PROTONIX IV SCH (16:31)
[2018-11-13] MEDS ORDERED: VANCOMYCIN 1 GM/NS 1 GM/250 ML IVPB IV ONE ×2 (17:00→20:00)
[2018-11-13] MEDS ORDERED: MAXIPIME 1 GM in NS 50 ML IV SCH (17:00)
--- NOTE | 2018-11-13 17:45 | PROGRESS NOTE ---
DATE: 11/13/2018 SUBJECTIVE: The patient is now off hypothermic protocol and remains on ventilator. She does demonstrate spontaneous movements and some agitation when stimulated. She opens her eyes to verbal stimuli. OBJECTIVE: Blood pressure 103/56, heart rate 110, oxygen saturation 96% on ventilator, with FIO2 of 40%. Neck: Jugular distention cannot be appreciated. Chest: Clear to auscultation anteriorly. Cardiac: Reveals a regular rate and rhythm without appreciable murmur or gallop. There is no evidence of peripheral edema. LABORATORY DATA: Includes a white blood cell count of 15.32, hematocrit 41.5, hemoglobin 13.2, platelet count 283,000. Sodium 139, potassium 3.7, chloride 102, carbon dioxide 16, BUN 38, creatinine 6.6, glucose 157. Echocardiography demonstrates estimated left ventricular ejection fraction 35-40%. Mild mitral regurgitation is demonstrated. Mild pulmonary hypertension also demonstrated. IMPRESSION: 1. Status post cardiopulmonary arrest following sedation, initiation of colonoscopy with subsequent bradycardia progressing into pulseless electrical activity. Suspect cardiopulmonary arrest most likely, at least initially related to vagal episode. 2. Encephalopathy post cardiopulmonary arrest. Hypothermia protocol utilized and now complete. Patient appears to be coming around. 3. Moderate cardiomyopathy for small pericardial effusion. Patient has history of previous pericardial window for pericardial effusion in the past. 4. End-stage renal disease requiring chronic hemodialysis. 5. Type 2 diabetes mellitus. 6. Chronic obstructive pulmonary disease. RECOMMENDATIONS: 1. Continue supportive care. 2. We will continue to follow and assist accordingly. cc: Tomy Stanford MD
--- NOTE | 2018-11-13 18:44 | INFECTIOUS DISEASE CONSULT REP ---
DATE: 11/13/2018 CONCLUSION: The patient has a bibasilar Branhamella catarrhalis pneumonia. She may have a immunoglobulin deficiency as well. RECOMMENDATIONS: I have discontinued cefepime and vancomycin and have started the patient on Rocephin 2 g IV every [address] Paul has already ordered immunoglobulin levels and procalcitonin level with which I agree. The patient is unable provide a history. No family members present. PAST MEDICAL HISTORY: Positive for: 1. End-stage renal disease. 2. COPD. 3. Diabetes mellitus. 4. Cardiac tamponade. 5. Systolic heart failure. 6. Osteoarthritis. 7. Chronic anemia. 8. Gastroesophageal reflux disease. 9. 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 PAST SURGICAL HISTORY: Positive for an AV fistula placement in the right arm, cataract surgery, back surgery, cholecystectomy, hysterectomy, and pericardial window. SOCIAL HISTORY: The patient does not smoke cigarettes, she does not drink alcoholic beverages, and she does not use illicit drugs. FAMILY HISTORY: Said to be noncontributory. REVIEW OF SYSTEMS: Unable to obtain. HOME MEDICATIONS: AccuNeb, Bentyl, Coreg, glipizide, insulin, Lasix, MiraLAX, ProAir, Sensipar, Zestril, and Zofran as needed. ALLERGIES: Patient has allergies to shellfish, Bactrim, tramadol, aspirin, and penicillin. It should be noted that the patient did tolerate cefepime well earlier. DIAGNOSTIC STUDIES: Lab and radiology studies hat have been done thus far show a CBC with a white count of 15,320, hemoglobin 13.2, and platelet count 283,000. Gases show a pH of 7.16, a PO2 of 91, and a pCO2 of 54. Creatinine is 6.6, GFR is 8, ALT is 73. Blood and urine cultures are negative. Sputum grew out Branhamella catarrhalis. Chest x-ray shows bilateral lower lobe pneumonia. PHYSICAL EXAMINATION: Vital Signs: Temperature is 100 degrees, pulse 106, respirations 18, blood pressure is 94/61. The patient weighs 225 pounds. General: This is an obese middle-aged female. She is intubated and sedated. Head, Eyes, Ears, Nose, and Throat: The patient has an orotracheal tube in place and a nasogastric tube in place as well. There is no drainage from the nose or the ears. Neck: When I move the patient's head, that did not seem to cause the patient to have any pain. Lungs: Clear to auscultation. Cardiovascular: Regular heart rate. Abdomen: Soft and not tender. Extremities: The patient has an AV fistula in the right arm, which currently is being used for hemodialysis. In the patient's left groin, there is a triple-lumen catheter present. Neurologic: The patient is sedated. She did not respond to verbal stimuli. She does not have a tremor. Integument: I did not notice any rash. Thank you for the consult. cc: Yinka Kumar MD
[2018-11-13] MEDS: ROCEPHIN 2 GM in NS 50 ML IV SCH (20:32)
[2018-11-13] MEDS ORDERED: MAXIPIME 1 GM in NS 50 ML IV ONE (21:00)
[2018-11-14] MEDS: DUONEB (A & A) INH SCH ×6 (03:42→23:30)
[2018-11-14] MEDS: ATIVAN IV SCH (04:46)
[2018-11-14] MEDS: NS IV SCH (04:46)
[2018-11-14] MEDS: NEO-SYNEPHRINE 50 MG in NS 250 ML IV SCH (04:50)
[2018-11-14 05:13] LABS: ALLEN TEST YES; BE -8.2 mmoll (-3.0-3.0); BLOOD TYPE ARTERIAL; HCO3-(ACT) 18.5 mmoll (20.0-26.0); METHB 1.1 % (0.0-1.5); O2(CT) 15.1 mL/dL (15.0-23.0); O2HB 93.9 % (95.0-99.0); PCO2(98.6) 41 mmHg (35-45); PO2(98.6) 72 mmHg (60-100); SAMPLE BLOOD; SAO2 96.1 % (95.0-100.0); SRATE 16 BPM; THB 11.4 g/dL (11.5-17.4); TVOL 450 mL; pH(98.6) 7.26 (7.35-7.45)
[2018-11-14 05:14] LABS: MODALITY VENTILATOR
[2018-11-14 06:09] LABS: BASO# 0.02 X1000 (0.0-0.2); BASO% 0.1 % (0.0-0.8); HEMATOCRIT 35.7 % (37.0-47.0); HEMOGLOBIN 10.7 g/dL (12.0-16.0); IMM GRAN# 0.07 X1000 (0.0-0.04); IMM GRAN% 0.4 % (0.0-0.5); LYMPH# 0.66 X1000 (1.2-3.4); LYMPH% 4.1 % (20.5-51.1); MCH 30.7 PG (27-31); MCV 102.3 FL (81-99); MONO# 2.12 X1000 (0.11-0.59); MONO% 13.1 % (1.7-9.3); MPV 9.9 FL (7.4-10.4); NEUT# 13.31 X1000 (1.4-6.5); NEUT% 82.3 % (42.2-75.2); PLT 252 X1000 (130-400); RBC 3.49 XMIL (4.2-5.4); WBC 16.18 X1000 (4.8-10.8)
[2018-11-14 06:23] LABS: ALBUMIN 3.1 g/dL (3.5-5.0); CALCIUM 8.7 mg/dL (8.8-10.2); CREATININE 3.7 mg/dL (0.5-0.9); DIRECT BILIRUBIN 0.1 mg/dL (0.00-0.20); PHOSPHORUS 3.4 mg/dL (2.7-4.5); TOTAL BILIRUBIN 0.18 mg/dL (0.20-1.00); TOTAL PROTEIN 6.1 g/dL (6.3-8.3)
[2018-11-14] MEDS: HUMULIN R SUBQ SCH ×5 (06:56→21:34)
--- NOTE | 2018-11-14 07:32 | Diag Imaging Result Doc PS360 ---
CHEST-PORTABLE - 11/14/2018 INDICATION: cardiac arrest COMPARISON: 11/13/2018 FINDINGS: Support lines and tubes are stable. There is some patchy infiltrate in the right lung base, slightly improved from prior. Heart size is top normal. No pneumothorax or pleural effusion. IMPRESSION: Improvement in the patchy infiltrate in the right lung base. Electronically signed by Kadeem Griggs 11/14/2018 7:29 AM
[2018-11-14 07:54] LABS: LYMPHS 6 % (21-51); MONO 12 % (1-9); SEGS 82 % (42-75)
[2018-11-14] MEDS: ROCEPHIN 2 GM in NS 50 ML IV SCH ×2 (08:01→20:45)
[2018-11-14] MEDS: HEPARIN SUBQ SCH ×2 (08:01→21:32)
[2018-11-14] MEDS: SODIUM BICARBONATE 8.4% IV PUSH SCH ×2 (12:56→14:38)
--- NOTE | 2018-11-14 14:13 | INFECTIOUS DISEASE PROGRESS NO ---
DATE: 11/14/2018 PRESENT ILLNESS: The patient has a bibasilar Branhamella catarrhalis pneumonia. I thought she may have an immunoglobulin deficiency; however, her IgG was 824 and IgA was 112, both of which are normal values. MEDICATIONS: The patient is receiving Rocephin in a dose of 2 grams IV every 12 hours. PHYSICAL EXAMINATION: Vital Signs: Temperature is 99, pulse 116, respirations 16, blood pressure 122/57. General: This is an ill-appearing middle-aged female. She is in no acute distress. She is intubated and sedated. Head, Eyes, Ears, Nose, and Throat: The patient has the orotracheal and nasogastric tubes in place. Neck: No meningismus. Lungs: Clear to auscultation. Cardiovascular: Heart rate is regular. Abdomen: Soft and nontender. Neurologic: The patient is sedated. She did not make any movement of her extremities. She did not respond to verbal stimuli. LABORATORY AND X-RAY: Chest x-ray shows improvement in the patchy infiltrate in the patient's right lower lobe. Creatinine is 3.7. GFR is 15. CBC shows a white count of 16,180, hemoglobin 10.7, and platelet count 252,000. Blood gases show a pH of 7.26, a PO2 of 72, and a pCO2 of 41. Sputum culture grew Branhamella catarrhalis. Blood and urine cultures were negative. ASSESSMENT AND PLAN: The patient has a Branhamella pneumonia, which is improving radiographically. My plan is to continue Rocephin as a single agent. Her immunoglobulin levels are in the normal range, and thus the patient does not need gammaglobulin infusions. COMORBIDITIES: The patient has end-stage renal disease. She is on hemodialysis. The patient also has COPD, diabetes mellitus, history of cardiac tamponade, congestive heart failure, chronic anemia, and gastroesophageal reflux disease. cc: Yinka Kumar MD
--- NOTE | 2018-11-14 15:11 | PULMONOLOGY PROGRESS NOTE ---
DATE: 11/14/2018 SUBJECTIVE: The patient has been sedated with benzodiazepine. She does not currently respond to voice. OBJECTIVE: General: The patient remains on Darell-Synephrine, but it has been titrated down. Vital Signs: Blood pressure 107/57, heart rate 115 respiratory rate 20, oxygen saturation 100%. HEENT: Pupils are equal and sluggish. Oropharynx appears clear. Neck: Supple. Chest: Reveals shallow breath sounds bilaterally. Cardiac: S1 and S2. Abdomen: Obese and soft. Extremities: Reveal 1+ peripheral edema. LABORATORY DATA: Chest x-ray reveals cardiomegaly with mild infiltrate at the left base. White blood count 16.2, hemoglobin 10.7, platelet count 252,000. Microbiology reveals Branhamella catarrhalis and sputum culture. Arterial blood gas reveals pH 7.26, pCO2 of 41, PO2 of 72. Sodium 138, potassium 5.0, chloride 106, bicarbonate 19, BUN 20, creatinine 2.7, glucose 262. IMPRESSION: The patient is a 63-year-old with end-stage renal disease who has sustained a cardiopulmonary arrest during the initiation of a colonoscopy. The patient has: 1. Acute hypoxemic respiratory failure. 2. Metabolic acidosis. 3. Pneumonia. 4. Small pericardial effusion. 5. Cardiomyopathy. 6. Encephalopathy status post cardiopulmonary arrest. 7. Diabetes with hyperglycemia. PLAN: 1. Hold Ativan and follow mental status. We will try short-term Diprivan if needed. 2. Initiate spontaneous breathing trial to see if the patient can be extubated. 3. Sodium bicarbonate for metabolic acidosis. 4. Continue antibiotics per Infectious Disease. 5. Continue insulin sliding scale. We will increase to q.4 hours. 6. Additional recommendations pending hospital course. Time spent in critical care management: 30+ minutes cc: Steve Mar MD [facility]
[2018-11-14] MEDS ORDERED: DIPRIVAN 1% 1,000 MG/100 ML BOTTLE IV SCH (16:00)
[2018-11-14] MEDS: PROTONIX IV SCH (16:05)
--- NOTE | 2018-11-14 17:02 | GASTROENTEROLOGY PROGRESS NOTE ---
DATE: 11/14/2018 SUBJECTIVE: Patient is intubated on mechanical ventilation. She did not arouse to stimulus except for slight movement, she did not open her eyes or follow commands. Nurse states Ativan drip has recently been stopped. OBJECTIVE: Vital Signs: Temperature 98.2 degrees, pulse 119, respirations 26, blood pressure 123/58. LABORATORY: Hematology. WBC 16.18, hemoglobin 10.7, hematocrit 35.7, MCV 102.3, platelets 252,000. Chemistry. Sodium 138, potassium 5.0, chloride 106, CO2 19, BUN 20, creatinine 3.7, glucose 262. ASSESSMENT AND PLAN: 1. Respiratory failure, status post cardiac arrest during colonoscopy procedure. Patient had hypothermia protocol. She is remaining on mechanical ventilation. 2. Pneumonia. 3. End-stage renal disease following with physician coder for her dialysis management. 4. GI will continue to be available as needed. Continue recommendations of cardiology, pulmonology and infectious disease. I have discussed this case with Dr. Heath. Dictated by MALINA Elkins for Caden Heath MD cc: MALINA Dukes MD
--- NOTE | 2018-11-14 19:33 | NEPHROLOGY PROGRESS NOTE ---
DATE: 11/14/2018 SUBJECTIVE: She is sedated on Ativan at the time of my exam. I have discontinued this. Staff states that she does follow commands. OBJECTIVE: Vital Signs: Blood pressure 88/53, heart rate 111, respirations 14, afebrile, intake 2.1 L, output 2.1 L. General: No acute distress. Skin: Warm and dry. Neck: Veins are not appreciated. Heart: Regular. No gallops. Lungs: Equal, few scattered crackles. Abdomen: Soft, nontender. Bowel sounds present. Extremities: No edema except for the right upper extremity, has diffuse swelling. Her fistula has normal thrill and bruit. IMPRESSION: Chronic kidney disease 5D. She was treated with sustained low-efficiency dialysis yesterday. No plan for dialysis today. Electrolytes and acid-base are acceptable. Anemia is acceptable. She does have modest hypotension today. She has been on Ativan, however. She does have low-dose Darell-Synephrine available. cc: Darryl Bonner MD
--- NOTE | 2018-11-14 19:35 | PROGRESS NOTE ---
DATE: 11/14/2018 SUBJECTIVE: The patient continues on ventilator. She is off all sedation currently. She responds to noxious stimuli such as suctioning, but does not respond to verbal stimuli. She appears to spontaneously move all 4 extremities at times. When she was being suctioned orally, it is noteworthy that she was observed to have copious amounts of what appeared to be pus draining from her right nostril where NG tube is in place. NG tube was subsequently removed. OBJECTIVE: Blood pressure 100/50, heart rate 100 and regular, oxygen saturation 100%. There is no significant jugular venous distention. Chest is clear to auscultation. Cardiac exam reveals a regular rate and rhythm without appreciable murmur or gallop. Extremities are without edema. LABORATORY DATA: Includes a white blood cell count of 16.18, hematocrit 35.7, hemoglobin 10.7, platelet count 252,000. Sodium 138, potassium 5.0, chloride 106, carbon dioxide 19, BUN 20, creatinine 3.7. IMPRESSION: 1. Status post cardiopulmonary arrest following sedation, initiation of colonoscopy, with subsequent bradycardia progressing to pulseless electrical activity. 2. Encephalopathy post cardiopulmonary arrest. 3. Moderate cardiomyopathy. 4. The patient had previous pericardial window performed for pericardial effusion in the past. 5. Endstage renal disease requiring chronic hemodialysis. 6. Suspected pneumonia post arrest. 7. Type 2 diabetes mellitus. 8. Chronic obstructive pulmonary disease. RECOMMENDATIONS: 1. NG tube removed, given suspicion of possible associated sinus infection. 2. Continue supportive care. cc: Tomy Stanford MD
--- NOTE | 2018-11-14 19:37 | PROGRESS NOTE ---
DATE: 11/14/2018 SUBJECTIVE: The patient is currently on the ventilator. Her Ativan drip has been discontinued. OBJECTIVE: Vital Signs: Temperature 98.6 degrees, blood pressure 88/50, heart rate 104, respirations 13, O2 saturation 93% on mechanical ventilator. General: This is a chronically ill- appearing elderly female lying in bed in no acute distress. Heart: S1, S2 normal. Tachycardic. Lungs: Equal air entry bilaterally. Diminished breath sounds at the bases. Abdomen: Positive bowel sounds. Soft, nontender, nondistended. Extremities: No edema, no cyanosis. Neurologic: The patient is sedated. LABORATORY DATA: White blood cell count 16, hemoglobin 10, hematocrit 35, platelets 252,000. Sodium 138, potassium 5, chloride 106, CO2 19, BUN 20, creatinine 3.7, glucose 262, albumin 3.1. IMAGING: Chest x-ray shows patchy infiltrate in the right lung base. ASSESSMENT AND PLAN: 1. Acute hypoxemic respiratory failure. Continue with ventilator management as directed by the systems trainer. 2. Status post cardiopulmonary arrest. Continue with supportive care. Cardiology is following. 3. Small pericardial effusion. Aware. 4. Pneumonia. Continue with IV antibiotic therapy as directed by Dr. Kumar. 5. End-stage renal disease. Management as per the hydrometer tester. 6. Encephalopathy. We will monitor the patient's mental status closely now that the sedation has been discontinued. 7. Chronic obstructive pulmonary disease. Continue with bronchodilator therapy. 8. Leukocytosis. Continue with antibiotic therapy. 9. Gastrointestinal prophylaxis. Continue on IV Protonix. 10. Deep vein thrombosis prophylaxis. Continue on heparin. cc: Rika Paul MD
[2018-11-15] MEDS: HUMULIN R SUBQ SCH ×6 (02:00→21:22)
[2018-11-15] MEDS: DUONEB (A & A) INH SCH ×6 (03:30→23:35)
[2018-11-15 05:45] LABS: ALLEN TEST YES; BE -5.2 mmoll (-3.0-3.0); BLOOD TYPE ARTERIAL; HCO3-(ACT) 20.8 mmoll (20.0-26.0); METHB 0.8 % (0.0-1.5); O2(CT) 16.5 mL/dL (15.0-23.0); O2HB 95.8 % (95.0-99.0); PCO2(98.6) 49 mmHg (35-45); PO2(98.6) 111 mmHg (60-100); SAMPLE BLOOD; SAO2 97.3 % (95.0-100.0); SRATE 10 BPM; THB 12.1 g/dL (11.5-17.4); TVOL 600 mL; pH(98.6) 7.26 (7.35-7.45)
[2018-11-15 05:46] LABS: MODALITY VENTILATOR
[2018-11-15 06:54] LABS: AGAP 15; ALBUMIN 3.1 g/dL (3.5-5.0); ALKALINE PHOSPHATASE 109 U/L (32-104); BUN 39 mg/dL (8-22); CALCIUM 9.4 mg/dL (8.8-10.2); CHLORIDE 106 mmol/L (98-107); COSMO 292; CREATININE 4.9 mg/dL (0.5-0.9); DIRECT BILIRUBIN < 0.10 mg/dL (0.00-0.20); ESTIMATED GFR 11; GLUCOSE 91 mg/dL (70-104); GOT 45 U/L (10-30); GPT 39 U/L (10-36); PHOSPHORUS 4.4 mg/dL (2.7-4.5); POTASSIUM 5.8 mmol/L (3.5-5.1); SODIUM 142 mmol/L (136-145); TCO2 21 mmol/L (25-35); TOTAL BILIRUBIN 0.19 mg/dL (0.20-1.00); TOTAL PROTEIN 6.3 g/dL (6.3-8.3)
--- NOTE | 2018-11-15 07:43 | Diag Imaging Result Doc PS360 ---
CHEST-PORTABLE - 11/15/2018 INDICATION: cardiac arrest COMPARISON: 11/14/2018 FINDINGS: The nasogastric tube is no longer visible. Stable endotracheal tube at T4. Stable esophageal temperature probe at the lower thoracic esophagus. Stable cardiomegaly and pulmonary vascular congestion. There has been improvement in the faint infiltrates in the lung bases. No new infiltrates. IMPRESSION: Nasogastric tube no longer present. Slight improvement in the basilar infiltrates. Electronically signed by Kadeem Griggs 11/15/2018 7:40 AM
[2018-11-15] MEDS: ROCEPHIN 2 GM in NS 50 ML IV SCH ×2 (07:51→20:45)
[2018-11-15] MEDS: HEPARIN SUBQ SCH ×3 (07:56→21:20)
[2018-11-15 09:15] LABS: BASO# 0.03 X1000 (0.0-0.2); BASO% 0.2 % (0.0-0.8); EOS# 0.03 X1000 (0.0-0.7); EOS% 0.2 % (0.0-10.0); HEMATOCRIT 36.8 % (37.0-47.0); HEMOGLOBIN 11.1 g/dL (12.0-16.0); IMM GRAN# 0.08 X1000 (0.0-0.04); IMM GRAN% 0.5 % (0.0-0.5); LYMPH# 1.21 X1000 (1.2-3.4); MCH 30.7 PG (27-31); MCHC 30.2 g/dL (33-37); MCV 101.9 FL (81-99); MONO# 1.47 X1000 (0.11-0.59); MONO% 9.7 % (1.7-9.3); MPV 9.8 FL (7.4-10.4); NEUT# 12.32 X1000 (1.4-6.5); NEUT% 81.4 % (42.2-75.2); PLT 233 X1000 (130-400); RBC 3.61 XMIL (4.2-5.4); WBC 15.14 X1000 (4.8-10.8)
[2018-11-15 09:26] LABS: LYMPHS 8 % (21-51); MONO 9 % (1-9); SEGS 83 % (42-75)
[2018-11-15] MEDS: HEPARIN IV PRN (09:30)
[2018-11-15] MEDS ORDERED: NS 2,000 ML MISC PRN (09:40)
[2018-11-15] MEDS: SODIUM BICARBONATE 8.4% IV PUSH SCH ×3 (10:00→17:26)
[2018-11-15] MEDS: NEO-SYNEPHRINE 50 MG in NS 250 ML IV SCH (11:50)
--- NOTE | 2018-11-15 16:13 | NEPHROLOGY PROGRESS NOTE ---
DATE: 11/15/2018 SUBJECTIVE: No acute distress. Remains on the ventilator. She is off of Ativan. OBJECTIVE: Vital Signs: Blood pressure 113/62, heart rate 99, respirations 17, temperature 99.3 degrees. General: No acute distress. Skin: Warm and dry. Conjunctivae are pink. Neck: Neck veins are not appreciated. Heart: Regular. Lungs: Equal. Abdomen: Soft. Decreased bowel sounds. Extremities: 1+ edema. No clubbing or cyanosis. IMPRESSION: Chronic kidney disease 5B. Sled today using a 3 K bath and goal of 3 to 4 L ultrafiltration, 27 bicarbonate. cc: Darryl Bonner MD
[2018-11-15] MEDS: PROTONIX IV SCH (17:27)
--- NOTE | 2018-11-15 17:31 | PROGRESS NOTE ---
DATE: 11/15/2018 SUBJECTIVE: The patient is resting comfortably in bed. She is on Darell- Synephrine. Her right arm is swollen with a temperature change when compared to different portions of the arm. OBJECTIVE: Vital Signs: Temperature 99.3 degrees, blood pressure 112/55, heart rate 102, respirations 18, O2 saturation 98% on mechanical ventilator. General: This is a chronically ill- appearing female lying in bed in no acute distress. Heart: S1, S2 normal. Tachycardic. Lungs: Equal air entry bilaterally. No crackles, no rales. Abdomen: Positive bowel sounds. Soft, nontender, nondistended. Extremities: 3+ edema in the right arm, no edema in the lower extremities. Neuro: The patient does not follow commands. She does respond to painful stimuli. LABS: White blood cell count 15, hemoglobin 11, hematocrit 36, platelets 233,000, sodium 142, potassium 5.8, chloride 106, CO2 21, BUN 39, creatinine 4.9, glucose 119, AST 45, ALT 39, alkaline phosphatase 109, albumin 3.1. Chest x-ray shows basilar infiltrates. ASSESSMENT AND PLAN: 1. Acute hypoxemic respiratory failure. Continue with ventilator management as directed by the sausage linker. 2. Status post cardiopulmonary arrest. Continue with supportive care. Cardiology is following. 3. Pneumonia. Continue with IV antibiotic therapy as directed by Dr. Kumar. 4. Encephalopathy. Will continue to monitor the patient's mental status closely. Discussed with and we will repeat the head CT tomorrow. 5. End stage renal disease. Management as per the digital commentator. 6. Chronic obstructive pulmonary disease. Continue bronchodilator therapy. 7. Small pericardial effusion. Aware. 8. Sinusitis. Continue with IV antibiotic therapy. 9. Gastrointestinal prophylaxis. Continue on IV Protonix. 10. Deep vein thrombosis prophylaxis. Continue on heparin. cc: MD JUDAH Arredondo
--- NOTE | 2018-11-15 18:29 | PULMONOLOGY PROGRESS NOTE ---
DATE: 11/15/2018 SUBJECTIVE: The patient has not received sedatives over the last 24 hours. The patient responds to pain but will not open her eyes or respond to voice. OBJECTIVE:: Vital Signs: Blood pressure 113/62, heart rate 99, respiratory rate 17, oxygen saturation 100%. HEENT: Pupils are equal but sluggish. Oropharynx appears clear. Neck: Supple Chest: Reveals mild prolonged expiratory phase. Cardiac Exam: S1-S2. Abdomen: Is obese and soft. Extremities: Reveal edema, right upper extremity greater than left upper extremity. LABORATORIES: White blood count 15.1, hemoglobin 11.1, platelet count 223,000. Sodium 142, potassium 5.8, chloride 106 bicarbonate 21, BUN 39, creatinine 4.9. Arterial blood gas, pH of 7.26, pCO2 of 49, PO2 of 111. Chest x-ray reveals cardiomegaly with vascular congestion and slight decreased bibasilar infiltrates. IMPRESSION: A 63-year-old with end-stage renal disease, status post cardiopulmonary arrest. The patient has: 1. Acute hypoxemic respiratory failure. 2. Metabolic acidosis. 3. Pneumonia. 4. Pericardial effusion. 5. Cardiomyopathy. 6. Encephalopathy. 7. Diabetes mellitus. PLAN: 1. Continue to hold benzodiazepines. She does have Diprivan available if needed. 2. Daily spontaneous breathing trials. 3. Sodium bicarbonate for metabolic acidosis. 4. Continue antibiotics per Infectious Disease. 5. Daily weaning trial. Time spent in critical care management 30+ minutes. cc: Steve Mar MD
[2018-11-16] MEDS: HUMULIN R SUBQ SCH ×6 (02:00→22:07)
[2018-11-16] MEDS: DUONEB (A & A) INH SCH ×6 (02:40→23:24)
[2018-11-16 05:07] LABS: ALLEN TEST YES; BE -2.9 mmoll (-3.0-3.0); BLOOD TYPE ARTERIAL; HCO3-(ACT) 22.7 mmoll (20.0-26.0); METHB 0.8 % (0.0-1.5); O2HB 96.2 % (95.0-99.0); PCO2(98.6) 37 mmHg (35-45); PO2(98.6) 96 mmHg (60-100); SAMPLE BLOOD; SAO2 98.6 % (95.0-100.0); SRATE 10 BPM; TVOL 600 mL; pH(98.6) 7.38 (7.35-7.45)
[2018-11-16 05:09] LABS: MODALITY VENTILATOR
[2018-11-16 06:32] LABS: BASO# 0.03 X1000 (0.0-0.2); BASO% 0.2 % (0.0-0.8); EOS# 0.04 X1000 (0.0-0.7); EOS% 0.3 % (0.0-10.0); HEMATOCRIT 36.3 % (37.0-47.0); IMM GRAN# 0.12 X1000 (0.0-0.04); LYMPH# 1.33 X1000 (1.2-3.4); MCH 31.1 PG (27-31); MCHC 30.3 g/dL (33-37); MCV 102.5 FL (81-99); MONO# 1.52 X1000 (0.11-0.59); MONO% 12.6 % (1.7-9.3); MPV 9.5 FL (7.4-10.4); NEUT# 9.05 X1000 (1.4-6.5); NEUT% 74.9 % (42.2-75.2); PLT 214 X1000 (130-400); RBC 3.54 XMIL (4.2-5.4); RDW 16.8 % (11.5-14.5); WBC 12.09 X1000 (4.8-10.8)
[2018-11-16 06:45] LABS: ALBUMIN 3.3 g/dL (3.5-5.0); CALCIUM 9.3 mg/dL (8.8-10.2); CREATININE 2.8 mg/dL (0.5-0.9); PHOSPHORUS 3.7 mg/dL (2.7-4.5); POTASSIUM 4.8 mmol/L (3.5-5.1)
[2018-11-16 07:15] LABS: ALBUMIN 3.3 g/dL (3.5-5.0); DIRECT BILIRUBIN 0.1 mg/dL (0.00-0.20); TOTAL BILIRUBIN 0.27 mg/dL (0.20-1.00); TOTAL PROTEIN 6.6 g/dL (6.3-8.3)
[2018-11-16 07:50] LABS: LYMPHS 12 % (21-51); MONO 11 % (1-9); SEGS 77 % (42-75)
[2018-11-16] MEDS: ROCEPHIN 2 GM in NS 50 ML IV SCH ×2 (07:56→20:36)
--- NOTE | 2018-11-16 07:56 | Diag Imaging Result Doc PS360 ---
CHEST-PORTABLE - 11/16/2018 INDICATION: cardiac arrest COMPARISON: 11/15/2018 FINDINGS: Support lines and tubes are stable. Stable cardiomegaly and mild pulmonary vascular congestion. No significant infiltrates or pulmonary edema. IMPRESSION: Cardiomegaly. No change from prior. Electronically signed by Kadeem Griggs 11/16/2018 7:54 AM
[2018-11-16] MEDS: HEPARIN SUBQ SCH ×2 (08:11→20:36)
--- NOTE | 2018-11-16 09:33 | Diag Imaging Result Doc PS360 ---
CT HEAD W/O CONTRAST - 11/16/2018 INDICATION: encephalopathy s/p cardiac arrest COMPARISON: 11/11/2018 FINDINGS: No intracranial hemorrhage. 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 There is worsening sinusitis. IMPRESSION: Worsening sinusitis. 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 This has been present since at least 2012. This exam was performed using automated exposure control, adjustment of mA or kV according to patient size, and/or use of iterative reconstruction technique Electronically signed by Kadeem Griggs 11/16/2018 9:31 AM
--- NOTE | 2018-11-16 12:05 | PULMONOLOGY PROGRESS NOTE ---
DATE: 11/16/2018 SUBJECTIVE: The patient has been off sedation for approximately 48 hours. She does withdraw to painful stimuli. She does not respond to voice. She does not open her eyes. She does not follow commands. OBJECTIVE: Vital Signs: Blood pressure 132/73, heart rate 127, respiratory rate 43 on spontaneous breathing trial, oxygen saturation 99%. HEENT: Pupils are equal but sluggish. Oropharynx appears clear but she has increased secretions. Neck: Supple. Chest: Reveals chronic rhonchi bilaterally. Cardiac Examination: Increased rate. S1, S2. Abdomen: Soft. Extremities: With edema. Laboratories: Repeat CT scan of the head reveals sinusitis and stable expansive erosive mass of the right temporal bone which has been present over the last 6 years. Chest x-ray reveals cardiomegaly with mild vascular congestion. White blood count 12.0, hemoglobin 11.0, platelet count 214,000. Arterial blood gas, pH 7.38, pCO2 of 37, PO2 of 96. Sodium 141, potassium 4.8, chloride 100, bicarbonate 20, BUN 20, creatinine 2.8. IMPRESSION: A 63-year-old with end-stage renal disease, status post cardiopulmonary arrest. The patient has: 1. Acute hypoxemic respiratory failure. 2. Altered mental status/encephalopathy, possibly anoxic. 3. Pneumonia. 4. Pericardial effusion. 5. Cardiomyopathy. 6. Sinusitis. 7. Diabetes mellitus. 8. Chronic right temporal bone lesion. RECOMMENDATIONS: 1. Continue to hold benzodiazepines and use a shorter acting agent if needed. 2. Continue spontaneous breathing trials. Patient's rapid shallow breathing index was greater than 120 today, making her not a candidate for extubation. Extubation also complicated by poor mental status. 3. Continue antibiotics per infectious disease. 4. Overall prognosis appears to be guarded given her multiple comorbidities. TIME SPENT: In critical care, 30 plus minutes. cc: Steve Mar MD
--- NOTE | 2018-11-16 13:36 | PROGRESS NOTE ---
DATE: 11/16/2018 SUBJECTIVE: The patient has been off of sedation however she is still not following commands or opening her eyes. She is currently on a Darell-Synephrine drip. OBJECTIVE: Vital Signs: Temperature 99.6 degrees, blood pressure 115/57, heart rate 126, respirations 16, O2 saturations 100% on mechanical ventilator. General: This is a chronically ill-appearing elderly female lying in bed in no acute distress. Head: Normocephalic, atraumatic. Heart: S1, S2 normal, tachycardic. Lungs: Equal air entry bilaterally. No crackles, no rales. Abdomen: Positive bowel sounds. Soft, nontender, nondistended. Extremities: 3+ edema in the right upper extremity. No edema noted in the lower extremities. Neuro: The patient does withdraw from painful stimuli but will not follow commands. LABS: White blood cell count 12, hemoglobin 11, hematocrit 36, platelets 214,000, sodium 141, potassium 4.8, chloride 100, CO2 20, BUN 20, creatinine 2.8, glucose 142, calcium 9.3, AST 32, ALT 33, alkaline phosphatase 115. Head CT shows worsening sinusitis. Stable erosive mass of the left temporal bone. ASSESSMENT AND PLAN: 1. Acute hypoxemic respiratory failure. Continue with weaning trials as directed by the account general manager. 2. Status post cardiopulmonary arrest. Continue with supportive care. The patient is currently on a Darell-Synephrine drip. Will attempt to wean this off. Cardiology is following. 3. Pneumonia. Continue with IV antibiotic therapy as directed by Dr. Kumar. 4. Encephalopathy. The patient has been off of sedation for more than 48 hours, however her mental status has not improved. The head CT does not indicate any new findings. Will order an EEG to be done tomorrow and consult with Neurology. 5. End stage renal disease. Management as per the live source operator. 6. Leukocytosis. Improved. Continue with IV antibiotic therapy. 7. Chronic obstructive pulmonary disease. Continue with bronchodilator therapy. 8. Sinusitis. This appears worse on today's CT. Continue with antibiotic therapy as directed by Dr. Kumar. 9. Small pericardial effusion. Aware. 10. Protein calorie malnutrition. The patient would likely benefit from intradialytic parenteral nutrition during her dialysis sessions if tube feeds are not going to be initiated. 11. Diabetes mellitus type 2. Continue on sliding scale insulin. 12. Gastrointestinal prophylaxis. Continue on Protonix. 13. Deep vein thrombosis prophylaxis. Continue on heparin. 14. Disposition. The patient remains critically ill with a high risk of mortality. cc: Rika Paul MD MTDD
--- NOTE | 2018-11-16 14:46 | INFECTIOUS DISEASE PROGRESS NO ---
DATE: 11/16/2018 PRESENT ILLNESS: The patient had a bibasilar pneumonia that appears to have cleared. She now has a worsening sinusitis as seen on CAT scan, most likely due to the fact that she had a nasogastric tube in place. MEDICATIONS: The patient is on Rocephin 2 g IV every 12 hours. PHYSICAL EXAMINATION: Vital Signs: Temperature is 100 degrees, pulse 126, respirations 16, blood pressure 115/57. Vital signs: Temperature is 100 degrees, pulse 126, respirations 16, blood pressure 115/57. General: This is an ill-appearing obese middle-age female. She is in no acute distress. Head, eyes, ears, nose, and throat: The tubes have been removed from her nose. At this time, I do not see any drainage coming from either nostril. However, earlier there was a lot of drainage coming from the one on the right side. I was unable to get a good view of the patient's oral cavity. Neck: No meningismus. Lungs: Clear to auscultation. Cardiovascular: Regular heart rate. Extremities: The patient has an AV fistula in the right arm which is functional. In the left groin there is a triple-lumen catheter present. I did not see any purulent drainage from around the catheter site. LAB AND X-RAY: The patient's CBC shows a white count of 12,090, hemoglobin 11, platelet count 214,000. The blood cultures are negative. CT scan was read as showing worsening sinusitis. Chest x-ray now shows no infiltrate. ASSESSMENT AND PLAN: The patient had a Branhamella pneumonia that is cleared, but most likely now the patient's sinusitis is due to Branhamella also. This should get better because the nasogastric tube has been removed. I am going to go ahead and order Flonase for a 5 day period. I am going to continue Rocephin. COMORBIDITIES: The patient has end-stage renal disease and she is on hemodialysis. She also has COPD, diabetes mellitus, congestive heart failure, chronic anemia, and gastroesophageal reflux disease. cc: Yinka Kumar MD
[2018-11-16] MEDS: PROTONIX IV SCH (15:55)
[2018-11-17] MEDS: HUMULIN R SUBQ SCH ×6 (02:47→21:38)
[2018-11-17] MEDS: ATIVAN IV PRN ×5 (03:08→16:56)
[2018-11-17] MEDS: DUONEB (A & A) INH SCH ×6 (03:14→23:20)
[2018-11-17 04:45] LABS: BASO# 0.03 X1000 (0.0-0.2); BASO% 0.3 % (0.0-0.8); EOS# 0.03 X1000 (0.0-0.7); EOS% 0.3 % (0.0-10.0); HEMATOCRIT 36.5 % (37.0-47.0); HEMOGLOBIN 11.2 g/dL (12.0-16.0); IMM GRAN# 0.16 X1000 (0.0-0.04); IMM GRAN% 1.6 % (0.0-0.5); LYMPH# 1.14 X1000 (1.2-3.4); LYMPH% 11.1 % (20.5-51.1); MCH 31.3 PG (27-31); MCHC 30.7 g/dL (33-37); MONO# 1.07 X1000 (0.11-0.59); MONO% 10.5 % (1.7-9.3); MPV 9.6 FL (7.4-10.4); NEUT% 76.2 % (42.2-75.2); PLT 185 X1000 (130-400); RBC 3.58 XMIL (4.2-5.4); RDW 16.3 % (11.5-14.5); WBC 10.23 X1000 (4.8-10.8)
[2018-11-17 04:58] LABS: ALLEN TEST YES; BE -4.1 mmoll (-3.0-3.0); BLOOD TYPE ARTERIAL; HCO3-(ACT) 21.7 mmoll (20.0-26.0); METHB 0.9 % (0.0-1.5); O2(CT) 15.8 mL/dL (15.0-23.0); O2HB 95.9 % (95.0-99.0); PCO2(98.6) 41 mmHg (35-45); PO2(98.6) 113 mmHg (60-100); SAMPLE BLOOD; SAO2 97.6 % (95.0-100.0); SRATE 10 BPM; THB 11.6 g/dL (11.5-17.4); TVOL 600 mL; pH(98.6) 7.33 (7.35-7.45)
[2018-11-17 04:59] LABS: MODALITY VENTILATOR
[2018-11-17 05:08] LABS: ALBUMIN 3.2 g/dL (3.5-5.0); CALCIUM 9.5 mg/dL (8.8-10.2); CREATININE 4.6 mg/dL (0.5-0.9); PHOSPHORUS 5.2 mg/dL (2.7-4.5); POTASSIUM 4.8 mmol/L (3.5-5.1)
--- NOTE | 2018-11-17 07:49 | Diag Imaging Result Doc PS360 ---
EXAM: CHEST-PORTABLE INDICATION: cardiac arrest TECHNIQUE: One view COMPARISON: 11/16/2018 FINDINGS: Support tubes and lines are in stable positions. Mild pulmonary venous congestion is essentially stable. No new consolidation is identified. There is stable cardiomegaly. IMPRESSION: Stable chest. Electronically signed by Deyvi Workman 11/17/2018 7:47 AM
[2018-11-17] MEDS ORDERED: NS 2,000 ML MISC PRN (07:51)
[2018-11-17] MEDS: ROCEPHIN 2 GM in NS 50 ML IV SCH ×2 (08:26→20:30)
[2018-11-17] MEDS: HEPARIN SUBQ SCH ×2 (08:26→21:34)
[2018-11-17] MEDS: HEPARIN IV PRN (09:20)
--- NOTE | 2018-11-17 10:31 | NEPHROLOGY PROGRESS NOTE ---
DATE: 11/17/2018 SUBJECTIVE: Patient remains mechanically ventilated. She has been given minimal sedation but still does not follow commands. She will occasionally open eyes, per nurse report. OBJECTIVE: Vital Signs: Temperature 99 degrees, pulse 106, respiratory rate 16, blood pressure 133/61. Intake and Output: Intake 108 mL. Output 70 mL. General: This is an acutely ill- appearing middle-aged female, resting in bed. She remains mechanically ventilated. She grimaces but does not follow commands. HEENT: Normocephalic. Oral mucosa is dry. She is orally intubated. Neck is supple. Unable to determine JVD. Cardiovascular: Tachycardic. Pulmonary: Equal excursion, no rales. Abdomen is soft, hypoactive bowel sounds. Genitourinary: Not inspected. Extremities: Her right upper extremity has significant edema from the shoulder down. Her fingertips are cool, but there is a pulse. Lower extremities with trace to no edema. Integumentary: Skin is warm and dry otherwise. LABORATORY DATA: WBC of 10.2, hemoglobin 11.2. Sodium 143, potassium 4.8, CO2 of 19, BUN 42, creatinine 4.6. ASSESSMENT AND PLAN: 1. Chronic kidney disease, 5D. Because of the patient's tenuous respiratory status, we will plan to run her on SLED today. She will dialyze on a 4 K bath, 4 L fluid removal. 2. Status post cardiac arrest. Followed by primary and Pulmonology. She did have a CT that did not show any acute findings. 3. Electrolytes, acid-base balance. Continue current treatment plan. She does have a tube feeding infusing. Dictated by MALINA Paris for Darryl Bonner MD Face to face encounter, data reviewed, discussed with Loren Go on 11/17/18. I agree with the above assessment and plan of care. cc: Darryl Bonner MD [facility]
[2018-11-17] MEDS: D50W 250 ML, AMINOSYN 15% 500 ML, LIPOSYN 20% 250 ML SCH ×3 (13:13)
--- NOTE | 2018-11-17 16:01 | PROGRESS NOTE ---
DATE: 11/17/2018 SUBJECTIVE: The patient remains on the ventilator. She does not follow commands. She does respond to painful stimuli. OBJECTIVE: Vital Signs: Temperature 99 degrees, blood pressure 101/61, heart rate 117, respirations 20, O2 saturation is 97% on the mechanical ventilator. General: This is a chronically ill-appearing, elderly female lying in bed, in no acute distress. Head: Normocephalic, atraumatic. Heart: S1, S2 normal. Tachycardic. Lungs: Equal air entry bilaterally. No crackles. No wheezing. No rales. Abdomen: Positive bowel sounds. Soft, nontender, nondistended. Extremities: No edema. No cyanosis. Neurologic: The patient does open her eyes but does not follow commands. She is able to move all 4 extremities. LABS: White blood cell count 10, hemoglobin 11, hematocrit 36, platelets 185,000. Sodium 143, potassium 4.8, chloride 101, CO2 19, BUN 42, creatinine 4.6, glucose 164, phosphorus 5.2. Chest x-ray shows mild pulmonary venous congestion. ASSESSMENT AND PLAN: 1. Acute hypoxemic respiratory failure. Continue with weaning trials as directed by the post graduate intern. 2. Status post cardiopulmonary arrest. Continue with supportive care. Cardiology is following. 3. Pneumonia. Improved. The patient remains on antibiotic therapy. 4. Severe sinusitis. Continue with antibiotic therapy as directed by Dr. Kumar. 5. Encephalopathy. The patient had an EEG done today. Will await further recommendations from the neurologist. 6. End stage renal disease. Management as per the product development director. 7. Chronic obstructive pulmonary disease. Continue with bronchodilator therapy. 8. Diabetes mellitus type 2. Continue on sliding scale insulin. 9. Small pericardial effusion. Aware. 10. Protein calorie malnutrition. The patient does not have an NG tube in place due to the severity in her sinus infection. She will require IDPN for nutrition at this time. 11. Gastrointestinal prophylaxis. Continue on Protonix. 12. Deep vein thrombosis prophylaxis. Continue on heparin. 13. Disposition. The patient remains critically ill with a high risk of mortality. cc: Rika Paul MD MTDD
--- NOTE | 2018-11-17 16:12 | EEG REPORT ---
DATE: 11/17/2018 REFERRING: Dr. Paul. THERMAL CUTTING TRACER MACHINE OPERATOR: Marc Velasquez BACKGROUND INFORMATION: Technique: This is a portable digitally recorded routine EEG with video. HISTORY: A 63-year-old female status post cardiac arrest and hypothermic protocol. EEG is ordered to detect evidence of seizures. MEDICATIONS: PRN lorazepam. EEG FINDINGS: A posterior dominant alpha rhythm is not seen. The background consists of delta greater than theta range frequencies without intermixed faster frequencies. Diffuse broad-based triphasic waves are seen to fluctuate throughout the record. No definite persistent focal slowing. No definite epileptiform discharges. No seizures. Hyperventilation was not performed. Photic stimulation does not alter the record. No definite drowsiness patterns. Stage II sleep is not seen. The EKG demonstrates regular RR intervals. IMPRESSION AND CLINICAL CORRELATION: Abnormal routine EEG due to moderately severe generalized slowing with diffuse triphasic waves indicative of a moderately severe nonspecific encephalopathy. No epileptiform discharges or seizures seen on the current study. This does not rule out an underlying seizure disorder. Generalized slowing is a nonspecific finding that can be seen in processes that diffusely affect the cerebrum, including toxic, metabolic, pharmacologic, post hypoxic, and infectious etiologies amongst others. Triphasic waves are also a nonspecific finding often seen with encephalopathies, most commonly in the setting of hepatic or renal derangements. cc: MD Rika Hoskins MD [facility]
[2018-11-17] MEDS: SODIUM CHLORIDE 0.9% INJ SCH (16:32)
[2018-11-17] MEDS: PROTONIX IV SCH (16:32)
--- NOTE | 2018-11-17 17:08 | CONSULTATION ---
DATE OF CONSULTATION: 11/17/2018 REASON FOR CONSULT: Question brain damage. HISTORY OF PRESENT ILLNESS: This is a 63-year-old black female who was admitted 11/11 after she suffered a cardiac arrest during initiation of a colonoscopy. She had bradycardia followed by [facility]. She started the hypothermic protocol at that time receiving Nimbex, lorazepam and fentanyl. She was rewarmed to temperature and Nimbex was stopped on the at 5 a.m., lorazepam drip was discontinued on the and she has received lorazepam pushes as needed most recently 2 mg at 8 a.m. this morning for coughing and 1 mg at 12:15 today. The patient has been noted to open her eyes and at one point was in restraints at one point. Those restraints are currently applied but are untied as of this morning. She has not been following commands, therefore Neurology has been asked to evaluate. The patient has been receiving SLED. She has a history of end stage renal disease and has been on hemodialysis. Of note she was resuscitated for approximately 2 minutes before she had return of spontaneous circulation. 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 FAMILY HISTORY: Positive for coronary disease. SOCIAL HISTORY: She is a former smoker, no alcohol or illicits. ALLERGIES: Listed to shellfish, sulfa, Bactrim, tramadol. CURRENT MEDICATIONS: Reviewed in the chart and as per above. REVIEW OF SYSTEMS: Unable to obtain due to patient's mental status and mechanical ventilation. PHYSICAL EXAM: Temperature is 99.9 degrees, blood pressure today 80s to 122 systolic over 50s to 80s diastolic, pulse 115, respirations 20, 97% on mechanical ventilation and breathing over the vent. Ms Brooks is supine in bed on the ventilator, her eyes are closed. There is some resistance to passive eye opening. Pupils are equal, 3 mm and reactive bilaterally to bright light. Gaze is conjugate. There is some horizontal eye movement with passive head turning. Corneal reflexes are present bilaterally. Face appears symmetrical with equal grimace. There is not consistent blink to threat. She does not spontaneously open her eyes. She has an intact cough. There are bilateral soft wrist restraints in place but they are not tied down. I did see her spontaneously move her right upper extremity during my time at the bedside. With noxious stimuli she moves all extremities in attempt to withdraw. The tone is equal in the limbs. Reflexes are trace to 1+ at the biceps. Absent at the ankles. No clonus. Plantar response is silent. The patient is currently undergoing SLED. She does not follow commands. DIAGNOSTICS: Head CT noncontrast performed on 11/11 showing no acute findings. Head CT performed on 11/16 showing no acute findings but worsening sinusitis. The latter was personally reviewed. White count normal today, BUN 42, creatinine 4.6, blood sugars 130s to 200s, calcium 9.5, phosphorus 5.2, AST 32, ALT 33. ASSESSMENT AND PLAN: 1. Global encephalopathy multifactorial with likely contributions from renal failure and lingering sedative medications. Head CTs have not shown any overt evidence of injury. There are some reassuring findings on examination. I would continue managing her medical issues and correcting any underlying metabolic derangements. Continue monitoring her neurologic status clinically. An EEG has been performed which I agree with and I will review that. I suspect that she will continue to show improvement with time. Limit sedation, as able. 2. Status post cardiac arrest on 11/11, status post hypothermic protocol, rewarmed to normal temperature by 11/13/2018. Continue management per primary. Thank you for this consultation. cc: Lorie Venegas MD [facility]
--- NOTE | 2018-11-17 17:11 | GASTROENTEROLOGY PROGRESS NOTE ---
DATE: 11/17/2018 SUBJECTIVE: Patient remains on mechanical ventilation. She is currently not responding or following commands. She does respond to painful stimulus but not purposeful stimulus. OBJECTIVE: Vital Signs: Temperature 99.9 degrees, pulse 115, respirations 20, blood pressure 101/61. General: Patient is intubated on mechanical ventilator. Respiratory: Lung sounds essentially clear. Abdomen: Soft. Positive bowel sounds. LABORATORY: Hematology. WBC 10.23, hemoglobin 11.2, hematocrit 36.5, MCV 102.0, platelet 185,000. Chemistry. Sodium 143, potassium 4.8, chloride 101, CO2 19, BUN 42, creatinine 4.6, glucose 164. ASSESSMENT AND PLAN: 1. Recent respiratory and cardiac arrest now on mechanical ventilation. 2. Pneumonia improved on antibiotics. 3. Encephalopathy. She has had an EGD done. I believe Neurology has been consulted. 4. End-stage renal disease. Patient is receiving dialysis. We will continue to follow along and further plans to be made according to her progress. At the time of my evaluation and Dr. Heath's evaluation, there was no family at the bedside. Patient was also seen by Dr. Heath. Dictated by MALINA Elkins for Caden Heath MD cc: MALINA Dukes MD
--- NOTE | 2018-11-17 19:46 | INFECTIOUS DISEASE PROGRESS NO ---
DATE: 11/17/2018 PRESENT ILLNESS: The patient has a pneumonia which has cleared. She now has sinusitis, most likely due to the fact she had a nasogastric tube in place. MEDICATIONS: The patient is receiving Rocephin for the Branhamella pulmonary infection she has and in case it is also involving the sinusitis. PHYSICAL EXAMINATION: Vital Signs: Temperature is 99, pulse 114, respirations 17, blood pressure 95/62. General: This is an ill-appearing obese middle-aged female. She is in no acute distress. Currently, she is undergoing hemodialysis. She is in no acute distress, however. Head, Eyes, Ears, Nose, and Throat: No drainage noted from the nose or ears. Extremities: In the patient's right arm, there is an AV fistula through which she is being dialyzed. In the left groin, there is a triple-lumen catheter with no erythema or purulence around the site. Neurologic: The patient is obtunded. DIAGNOSTIC STUDIES: Patient's CBC shows a white count 10,230, hemoglobin 11.2, platelet count 185,000. Gases show pH 7.33, a PO2 of 113, pCO2 of 41. Creatinine is 4.6, GFR is 12. Procalcitonin is 4.2. Immunoglobulin levels are normal. Chest x-ray shows bilateral pulmonary venous congestion. The patient's culture from her nose is growing a gram-negative fawn. ASSESSMENT AND PLAN: 1. The patient's Branhamella pneumonia has cleared. 2. Currently, we are treating the patient's sinusitis with Rocephin. This is day 4 of treatment with it. PATIENT'S COMORBIDITIES: Include: 1. End-stage renal disease. The patient is on hemodialysis. 2. She also has chronic obstructive pulmonary disease. 3. Diabetes mellitus. 4. Congestive heart failure. 5. Gastroesophageal reflux disease. 6. Obesity. cc: Yinka Kumar MD
[2018-11-18] MEDS: HUMULIN R SUBQ SCH ×6 (02:57→21:25)
[2018-11-18] MEDS: DUONEB (A & A) INH SCH ×6 (03:52→23:20)
[2018-11-18 05:04] LABS: ALLEN TEST YES; BE -3.9 mmoll (-3.0-3.0); BLOOD TYPE ARTERIAL; HCO3-(ACT) 21.9 mmoll (20.0-26.0); O2HB 97.3 % (95.0-99.0); PCO2(98.6) 43 mmHg (35-45); PO2(98.6) 104 mmHg (60-100); SAMPLE BLOOD; SAO2 100.1 % (95.0-100.0); SRATE 10 BPM; THB 13.8 g/dL (11.5-17.4); TVOL 600 mL; pH(98.6) 7.32 (7.35-7.45)
[2018-11-18 05:05] LABS: MODALITY VENTILATOR
[2018-11-18 06:09] LABS: ALBUMIN 3.3 g/dL (3.5-5.0); CALCIUM 10.2 mg/dL (8.8-10.2); CREATININE 2.7 mg/dL (0.5-0.9); PHOSPHORUS 3.4 mg/dL (2.7-4.5); POTASSIUM 4.4 mmol/L (3.5-5.1)
[2018-11-18] MEDS: NEO-SYNEPHRINE 50 MG in NS 250 ML IV SCH ×2 (06:41→23:28)
[2018-11-18 06:51] LABS: BASO# 0.04 X1000 (0.0-0.2); BASO% 0.4 % (0.0-0.8); EOS# 0.05 X1000 (0.0-0.7); EOS% 0.5 % (0.0-10.0); HEMATOCRIT 36.5 % (37.0-47.0); HEMOGLOBIN 10.9 g/dL (12.0-16.0); IMM GRAN# 0.29 X1000 (0.0-0.04); IMM GRAN% 3.1 % (0.0-0.5); LYMPH# 0.84 X1000 (1.2-3.4); MCH 30.4 PG (27-31); MCHC 29.9 g/dL (33-37); MCV 101.7 FL (81-99); MONO# 0.97 X1000 (0.11-0.59); MONO% 10.4 % (1.7-9.3); NEUT# 7.18 X1000 (1.4-6.5); NEUT% 76.6 % (42.2-75.2); PLT 190 X1000 (130-400); RBC 3.59 XMIL (4.2-5.4); RDW 16.1 % (11.5-14.5); WBC 9.37 X1000 (4.8-10.8)
--- NOTE | 2018-11-18 07:04 | Diag Imaging Result Doc PS360 ---
EXAM: CHEST-PORTABLE 11/18/2018 HISTORY: cardiac arrest TECHNIQUE: AP portable at 0511 COMMENT: There is an endotracheal tube with its tip at the thoracic inlet, and a pH monitor lead in the midesophagus. There is a stent in the right subclavian vein. There is fibrosis in the left lung. There is some ill-defined opacity obscuring portions of the left hemidiaphragm which was not present on the previous study of 11/17/2018. Otherwise the appearance the chest has not changed significantly. IMPRESSION: Atelectasis versus pneumonia left lower lobe. Cardiomegaly. Electronically signed by Ricki Aviles 11/18/2018 7:01 AM
[2018-11-18] MEDS: ROCEPHIN 2 GM in NS 50 ML IV SCH (07:26)
--- NOTE | 2018-11-18 08:10 | NEPHROLOGY PROGRESS NOTE ---
DATE: 11/18/2018 SUBJECTIVE: She is about the same. She will not open her eyes. She does cough and withdraw and shake her head. OBJECTIVE: Vital Signs: Blood pressure 85/47, heart rate 102, respirations 10. Afebrile. Intake only 100 mL recorded, output 14 mL recorded. General: No acute distress. Skin: Warm and dry. Eyes: Conjunctivae are pink. Pupils are equal. Neck: Neck veins are not appreciated. Heart: Regular and tachycardic. Lungs: Have equal breath sounds. No crackles or wheezes. Abdomen: Soft, nontender. Diminished bowel sounds. Extremities: No edema except that the right upper extremity has fusiform 3+ edema. IMPRESSION: 1. Chronic kidney disease 5D. She had her routine hemodialysis treatment yesterday. Electrolytes and acid-base are in target. 2. Arm swelling. Now that she is more stable, I will ask the vascular lab to perform a duplex Doppler. 3. Respiratory failure/altered mental status. I appreciate consultants. cc: Darryl Bonner MD
[2018-11-18] MEDS: HEPARIN SUBQ SCH ×2 (08:34→21:26)
--- NOTE | 2018-11-18 11:28 | PROGRESS NOTE ---
DATE: 11/18/2018 SUBJECTIVE: Patient has no major complaints, but she is unresponsive. She does withdraw to noxious stimuli. OBJECTIVE: Vitals: Blood pressure 104/51, heart rate 116, respiratory rate of 14, temperature was 99.5 degrees. Afebrile. Cardiovascular: Regular rate and rhythm. Pulmonary: Clear anteriorly. GI: Was soft, nontender, nondistended. Bowel sounds were positive. Extremities: No clubbing or cyanosis. Lymphatic: No peripheral edema. Neurological: Exam was nonfocal. She does withdraw to painful stimuli. LABORATORY: White count 9, hemoglobin and hematocrit 10 and 36, platelets 190,000. PH 7.32, pCO2 43, PO2 104. Creatinine 2.7, albumin 2.3. PROBLEM LIST: 1. Acute hypoxic respiratory failure, status post cardiac arrest. She is on weaning trials and is not requiring a lot of ventilatory support, but her neurological status is poor. She is not responsive, so we are not quite sure how she will do without the ventilator. 2. Pneumonia. She is on antibiotics, which is Rocephin alone per Dr. Kumar. She has cultured out Branhamella catarrhalis and Acinetobacter baumannii, which is only intermediately sensitive and that was from a nares culture. Dr. Kumar is following. May need to change it to cefepime or something like that or ceftazidime. I am assuming Dr. Kumar will re-evaluate today, may change that. I guess we are just treating the sinusitis alone. May change it to ceftazidime at renal dosing. 3. Encephalopathy. It is unclear she has had hypoxic injury because her CTs have been negative. I do not think her EEG showed any active seizures, but she had severe encephalopathy. We are still waiting. Neurology is following. We will see there are any other recommendations. 4. End-stage renal. She is on dialysis per Nephrology. She was on SLED apparently and was hypotensive, although she is off vasopressors at this point. 5. Type 2 diabetes is stable on sliding scale insulin. 6. Protein calorie malnutrition, moderate. We will continue IDPN. DISPOSITION: Pending her clinical status. For her right upper extremity swelling, there is a vascular study pending. I will continue to monitor. cc: Jose Kuo MD
[2018-11-18] MEDS ORDERED: TAZIDIME 0.5 GM in NS 50 ML IV SCH (12:00)
[2018-11-18] MEDS ORDERED: ROMAZICON IV ONE (12:01)
[2018-11-18] MEDS ORDERED: HALDOL IV ONE (12:24)
[2018-11-18 13:09] LABS: ALLEN TEST YES; BE -10.1 mmoll (-3.0-3.0); BLOOD TYPE ARTERIAL; METHB 0.9 % (0.0-1.5); O2(CT) 15.2 mL/dL (15.0-23.0); PCO2(98.6) 45 mmHg (35-45); PO2(98.6) 90 mmHg (60-100); SAMPLE BLOOD; SAO2 96.7 % (95.0-100.0); THB 11.3 g/dL (11.5-17.4)
[2018-11-18 13:10] LABS: MODALITY VENTILATOR
--- NOTE | 2018-11-18 14:50 | PROGRESS NOTE ---
DATE: 11/18/2018 SUBJECTIVE: No major overnight events. The nurse reports that they give a dose of Romazicon today and the patient woke up more, was able to say no appropriately to questions. Moves her extremities. She subsequently required a dose of Haldol for comfort. She is doing well on vent wean trial. PHYSICAL EXAMINATION: Vital Signs: Temperature is 99.7, blood pressure is 91 to 151 systolic/40s to 60s diastolic, pulse low 100s, respirations 28. She is on CPAP mode of the ventilator. General: Ms. Juarez is supine in bed with eyes closed. She does not follow commands. Exam: She actively resists passive eye opening. Pupils are equal, miotic, round and reactive to bright light. Gaze is conjugate. There is some horizontal eye movement with passive head turning. Corneal reflexes are present bilaterally. Face symmetric with equal grimace. Tone is equal in the limbs. She is seen to move all extremities at least against gravity with noxious stimuli and withdrawal. She has also seen occasionally to move her limbs spontaneously. At one point, she opens her eyes and turns in my direction when noxious stimuli is applied. Absent ankle jerks. Trace to 1+ at biceps. No clonus. Plantar response is silent. No meningismus. DIAGNOSTICS: Routine EEG was personally reviewed showing moderately severe generalized slowing with diffuse triphasic waves indicative of a moderately severe nonspecific encephalopathy. No epileptiform discharges or seizures were seen on this study. White count normal. BUN 25, creatinine 2.7, improved from yesterday. Blood sugars mid 100s to mid 200s recently. ASSESSMENT AND PLAN: 1. Global encephalopathy. Multifactorial with significant contributions from lingering sedative affects and also likely from renal failure. Exam findings continue to be reassuring and I would continue treating her medical issues as you are doing, monitoring her clinical status and seeing how much she improves with time. No evidence of seizure or increased propensity to seizure on recent EEG. 2. Status post cardiac arrest 11/11, status post hypothermic protocol. Rewarmed to normal temperature 11/13/2018. Management per primary team. cc: Lorie Venegas MD MTDD
[2018-11-18] MEDS: SODIUM CHLORIDE 0.9% INJ SCH (15:28)
[2018-11-18] MEDS: PROTONIX IV SCH (15:29)
--- NOTE | 2018-11-18 16:00 | INFECTIOUS DISEASE PROGRESS NO ---
DATE: 11/18/2018 PRESENT ILLNESS: The patient had a pneumonia, which I felt had cleared; however, the most recent chest x-ray shows that there could be a new pneumonia in the left lower lobe or could be all due to pulmonary venous congestion. The patient also has sinusitis. The drainage has decreased quite a bit. Culture from the drainage grew Acinetobacter. The patient's culture initially from the patient's sputum grew out Branhamella, which has actually been renamed Moraxella, and now more recently the patient may have an Acinetobacter pneumonia as well as an Acinetobacter sinusitis. MEDICATIONS: I am going to switch the patient to cefepime, which should cover both the Branhamella which has been renamed Moraxella pneumonia, and also should cover the Acinetobacter sinusitis. The dose is going to be modified because of the patient's renal failure. Specifically, I am going to order 1 g IV after each dialysis and discontinue ceftazidime. PHYSICAL EXAMINATION: Vital Signs: Temperature is 99.1 degrees, pulse 94, respirations 11, blood pressure 122/60. General: This is an ill-appearing, obese, middle-aged female. She is in no acute distress, but she is obtunded. Head, eyes, ears, nose and throat: Oral tracheal tube is in place. There was not any drainage from either nostril today. Neck: There was no reaction to my movement of the patient's neck. Lungs: Clear to auscultation. Cardiovascular: Heart rate is regular. Abdomen: Soft and apparently not tender.. Extremities: The patient has an AV fistula in the right arm through which she is being dialyzed. The fistula is functional. The patient, in the left groin, has a triple lumen catheter which is not draining. Neurologic: As mentioned above, the patient is obtunded. Integument: No rash noted. LAB AND X-RAY FINDINGS: Chest x-ray shows left lower lobe pneumonia versus atelectasis. Sputum grew out Moraxella. The nasal swab where there was a lot of purulent secretions grew Acinetobacter. CBC shows a white count of 9370, hemoglobin 10.9, and platelet count 190,000. Blood gases: The pH is 7.2, PO2 is 90, pCO2 is 45. Creatinine is 2.7. GFR is 22. Chest x-ray shows a left lower lobe pneumonia and/or atelectasis. ASSESSMENT AND PLAN: Patient has pneumonia and sinusitis due to Moraxella and Acinetobacter respectively. Switching the patient from Rocephin to cefepime to be given in a dose of 1 gram intravenous after each dialysis. COMORBIDITIES: Comorbidities in this patient include the followin. End-stage renal disease. The patient is on hemodialysis. 2. Chronic obstructive pulmonary disease. 3. Diabetes mellitus. 4. Congestive heart failure. 5. Gastroesophageal reflux disease. 6. Obesity. Thank you for the consult. cc: Yinka Kumar MD
--- NOTE | 2018-11-18 18:01 | GASTROENTEROLOGY PROGRESS NOTE ---
DATE: 11/18/2018 SUBJECTIVE: Patient continues to be intubated on mechanical ventilation. She is unresponsive. She does respond to painful stimuli. There is no family at the bedside. OBJECTIVE: Vital Signs: Temperature 99.1 degrees, pulse 97, respirations 12, blood pressure 83/41. General: Patient is nonresponsive except to painful stimulus. Abdomen: Was soft, nontender. Positive bowel sounds. LABORATORY: Hematology. WBC 9.37, hemoglobin 10.9, hematocrit 36.5, MCV 101.7, platelet 190,000. Chemistry. Sodium 138, potassium 4.4, chloride 103, CO2 24, BUN 25, creatinine 2.7, glucose 157. ASSESSMENT AND PLAN: 1. Recent cardiac arrest, respiratory failure. Patient is on mechanical ventilation. 2. Pneumonia on antibiotics. 3. Encephalopathy. Patient has been seen by Neurology. 4. End-stage renal disease. Patient is following with Nephrology for dialysis by [facility]. 5. GI will continue to follow and be available as needed. I have discussed this case with Dr. Heath. Dictated by MALINA Elkins for Caden Heath MD cc: MALINA Dukes MD
[2018-11-19] MEDS: HUMULIN R SUBQ SCH ×6 (02:05→21:22)
[2018-11-19] MEDS: DUONEB (A & A) INH SCH ×5 (02:37→15:17)
[2018-11-19 04:49] LABS: ALLEN TEST YES; BE -7.3 mmoll (-3.0-3.0); BLOOD TYPE ARTERIAL; HCO3-(ACT) 19.2 mmoll (20.0-26.0); PCO2(98.6) 39 mmHg (35-45); PO2(98.6) 103 mmHg (60-100); SAMPLE BLOOD; SRATE 10 BPM; TVOL 600 mL; pH(98.6) 7.29 (7.35-7.45)
[2018-11-19 04:51] LABS: MODALITY VENTILATOR
[2018-11-19 05:37] LABS: HEMATOCRIT 38.1 % (37.0-47.0); HEMOGLOBIN 11.5 g/dL (12.0-16.0); MCH 30.7 PG (27-31); MCHC 30.2 g/dL (33-37); MCV 101.9 FL (81-99); MPV 10.4 FL (7.4-10.4); RBC 3.74 XMIL (4.2-5.4); RDW 16.4 % (11.5-14.5); WBC 15.17 X1000 (4.8-10.8)
[2018-11-19 06:00] LABS: ALBUMIN 3.4 g/dL (3.5-5.0); CALCIUM 9.9 mg/dL (8.8-10.2); CREATININE 4.5 mg/dL (0.5-0.9); PHOSPHORUS 4.5 mg/dL (2.7-4.5); POTASSIUM 4.3 mmol/L (3.5-5.1)
[2018-11-19] MEDS ORDERED: NS 2,000 ML MISC PRN (06:19)
--- NOTE | 2018-11-19 07:18 | Diag Imaging Result Doc PS360 ---
EXAM: CHEST-PORTABLE HISTORY: cardiac arrest TECHNIQUE: Portable chest single view COMPARISON: 11/18/2018 FINDINGS: Endotracheal tube is in good position. Catheter overlying the esophagus is unchanged. The lungs remain well expanded. The heart is borderline mildly prominent. No consolidation. Atelectasis or scarring in the left base. No pleural effusions identified. IMPRESSION: Stable chest. Electronically signed by Jhonny Sanchez 11/19/2018 7:16 AM
--- NOTE | 2018-11-19 08:34 | NEPHROLOGY PROGRESS NOTE ---
DATE: 11/19/2018 SUBJECTIVE: She grimaces and move spontaneously, but does not open her eyes for me or follow any commands. OBJECTIVE: Vital Signs: Blood pressure 131/69, heart rate 120, respiration 23, afebrile. General: No acute distress. Skin: Warm and dry. Eyes: Conjunctivae are pink. Neck: Neck veins are not appreciated. Heart: Regular and tachycardic. Lungs: Equal. No crackles. Abdomen: Soft, nontender. Bowel sounds present. Extremities: No edema, clubbing or cyanosis with the exception of ongoing fusiform swelling of the right upper extremity. IMPRESSION: Chronic kidney disease 5 D. She will have slow, low efficiency dialysis today with a goal of 3 liters using a 4 potassium bath and a 32 bicarbonate. No other changes. cc: Darryl Bonner MD
[2018-11-19] MEDS: D50W 250 ML, AMINOSYN 15% 500 ML, LIPOSYN 20% 250 ML SCH ×3 (08:45)
[2018-11-19] MEDS ORDERED: MAXIPIME 1 GM in NS 50 ML IV ONE ×2 (09:06→16:00)
[2018-11-19] MEDS: HEPARIN SUBQ SCH ×2 (09:09→21:04)
--- NOTE | 2018-11-19 09:45 | INFECTIOUS DISEASE PROGRESS NO ---
DATE: 11/19/2018 HISTORY OF PRESENT ILLNESS: The patient previously had a pneumonia; I felt that it was coming back. However, on the x-ray today there is no evidence of a new pneumonia. The patient does have sinusitis which is which is felt to be caused by the fact she had an NG tube down. MEDICATION: The patient has been switched to cefepime. The dose is 1 g IV after each after each dialysis. PHYSICAL EXAMINATION: Vital Signs: Temperature is 100 degrees, pulse 123, respirations 21, blood pressure 111/70. General: This is an obese, middle-aged female. She is intubated and sedated. Head, eyes, ears, nose, throat: Orotracheal tube is in place. There is no drainage from the nose or ears. Neck: There is no resistance to movement. Lungs: Clear to auscultation. Cardiovascular: Heart rate is regular. Abdomen: Soft and nontender. Extremities: The patient has an AV fistula in her right arm and she is actually being dialyzed during the time that I was in the room using the right arm AV fistula. In the patient's left groin, there is a triple-lumen catheter. Neurologic: The patient is obtunded. She did not respond to verbal stimuli. LAB AND X-RAY FINDINGS: Chest x-ray shows no consolidation[place] [address], hemoglobin 11.5, and platelet count 235,000. ASSESSMENT AND PLAN: The patient has sinusitis. The pneumonia has cleared. I plan to continue cefepime after each dialysis. COMORBIDITIES: 1. End-stage renal disease with hemodialysis. 2. Chronic obstructive pulmonary disease. 3. Diabetes mellitus. 4. Congestive heart failure. 5. Gastroesophageal reflux disease. 6. Obesity. cc: Yinka Kumar MD
[2018-11-19] MEDS ORDERED: MAXIPIME 1 GM in NS 50 ML IV SCH (10:00)
[2018-11-19] MEDS ORDERED: MERREM 500 MG in NS 50 ML IV SCH ×2 (10:15→17:00)
--- NOTE | 2018-11-19 12:16 | PROGRESS NOTE ---
DATE: 11/19/2018 SUBJECTIVE: The patient still winces. Apparently she was a little bit more awake after Romazicon yesterday. She is still not very with it. OBJECTIVE: Vital signs: Blood pressure 123/77, heart rate 127, respiratory rate 21, temperature 99.5 degrees. Cardiovascular: Regular rate and rhythm. Pulmonary: Bilateral breath sounds clear to auscultation. Gastrointestinal: Soft, nontender, nondistended. Bowel sounds are positive. LABORATORY DATA: White count is up to 15, hemoglobin and hematocrit 11 and 38, platelets 235,000. PTT 91. pH 7.29, pCO2 39, PaO2 103. That is on 30%. Creatinine 4.5, albumin 3.4. IMAGING: Chest x-ray shows ET tube. No other major issues. Some atelectasis at the left base. PROBLEM LIST: 1. Acute hypoxic respiratory failure, cardiac arrest. She is on weaning trials but her neurological status is still poor, and when she tends to get off sedation, she becomes discordant with the ventilator. 2. Pneumonia. She is now on cefepime. She has grown out Branhamella catarrhalis which is beta lactamase positive, but that is not unusual for Branhamella or Moraxella species. They typically are sensitive to cephalosporins. Acinetobacter was sensitive to cephalosporins. Dr. Kumar feels cefepime would be better coverage than ceftazidime to treat the sinusitis at this point. It is beta lactamase positive, but it is not an ESBL so I do not think carbapenems are required. 3. Encephalopathy. Unclear etiology. We will continue to follow. Neurology is following. No obvious evidence of seizure or hypoxia. 4. End-stage renal. She is on dialysis per Nephrology. Currently getting SLED therapy, off vasopressors. 5. Type 2 diabetes, on sliding scale insulin. 6. Moderate protein calorie malnutrition. We will initiate tube feeds. The IDPN is not felt to be meeting her caloric needs. DISPOSITION: Pending her clinical status. cc: Jose Kuo MD
--- NOTE | 2018-11-19 13:11 | PROGRESS NOTE ---
DATE: 11/19/2018 SUBJECTIVE: Dr. Venegas saw Ms. Brooks for initial neurology evaluation. She had cardiac arrest just over a week ago, was cooled, sedated, and warmed. She has had apparent global encephalopathy since then, which may be slowly improving clinically. There has never been focal neurologic feature. OBJECTIVE: Today, she is moving her limbs a little bit spontaneously. She vigorously closed her eyes to resist my attempt to open eyelids passively. With passive eye opening and head turning, there is conjugate lateral eye movement. With her grimace, facial motility appears symmetric. Neck is supple. Limb tone is symmetric. IMPRESSION: Global encephalopathy likely multiple factors, possibly still some sedative effect from lorazepam earlier. She has a few relatively minor metabolic findings including BUN in the 40s, blood sugar around 200. There is concern for anoxic brain injury. I do not think we need further imaging, EEG or other workup right now. Further plans will depend on her clinical course. Thanks for asking Neurology to see Ms. Brooks. cc: Brodie Finley III, MD [facility]
[2018-11-19] MEDS: SODIUM CHLORIDE 0.9% INJ SCH (16:23)
[2018-11-19] MEDS: PROTONIX IV SCH (16:23)
[2018-11-19] MEDS ORDERED: OFIRMEV 1000 MG/ISOTONIC SOLN 1,000 MG/100 ML BOTTLE IV PRN (17:19)
[2018-11-19] MEDS: MORPHINE IV PRN (17:26)
[2018-11-19] MEDS ORDERED: NS NEB INH SCH (17:30)
--- NOTE | 2018-11-19 17:30 | Diag Imaging Result Doc PS360 ---
CHEST/ABD TUBE PLACEMENT - 11/19/2018 INDICATION: OGT placement COMPARISON: Chest x-ray from earlier 11/19/2018 FINDINGS: There is an orogastric tube in good position in the stomach. Stable temperature probe with the tip behind the heart. Stable endotracheal tube in good position. IMPRESSION: No complication. Electronically signed by Kadeem Griggs 11/19/2018 5:28 PM
--- NOTE | 2018-11-19 17:32 | Diag Imaging Result Doc PS360 ---
SINUSES LY VIEW ONLY - 11/19/2018 INDICATION: sinusitis TECHNIQUE: COMPARISON: None FINDINGS: Detail is very poor. No obvious sinus opacification. IMPRESSION: No obvious sinus opacification. Electronically signed by Kadeem Griggs 11/19/2018 5:30 PM
[2018-11-19] MEDS: LOPRESSOR IV SCH ×2 (17:38→23:32)
--- NOTE | 2018-11-19 18:17 | GASTROENTEROLOGY PROGRESS NOTE ---
DATE: 11/19/2018 SUBJECTIVE: The patient remains on mechanical ventilation. She does not appropriately respond to stimulus but does have some squinting of her eyes or grimacing with painful stimulus. OBJECTIVE: Vital signs: Temperature 99.5 degrees, pulse 134, respirations 16, blood pressure 106/62. Generally, the patient is on mechanical ventilation. Nonresponsive except to increased stimulus/painful stimulus. Abdomen is soft, nontender. Positive bowel sounds. LABORATORY DATA: Hematology: WBC 15.17, hemoglobin 11.5, hematocrit 38.1, MCV 101.9, platelets 235,000. Chemistry: Sodium 143, potassium 4.3, chloride 104, CO2 is 17, BUN 40, creatinine 4.5, glucose 174. ASSESSMENT AND PLAN: 1. Recent cardiac arrest/respiratory failure during colonoscopy procedure. The patient is now on mechanical ventilation. 2. Pneumonia, on antibiotics. 3. Encephalopathy. The patient has grimacing to increased/painful stimulus. The patient is being seen by Neurology. 4. Endstage renal disease, following with Nephrology. Receiving dialysis as per Nephrology. Continue current management and supportive care. We will continue to follow, and further plans will be made according to her progress. There was no family available at the bedside at the time of my evaluation. I have discussed this case with Dr. Heath. Dictated by MALINA Elkins for Caden Heath MD cc: MALINA Dukes MD
[2018-11-19] MEDS: ATROVENT NEB INH SCH ×2 (19:23→23:54)
[2018-11-19] MEDS: XOPENEX NEB INH SCH ×2 (19:23→23:53)
[2018-11-20] MEDS: HUMULIN R SUBQ SCH ×6 (02:24→22:32)
[2018-11-20] MEDS: LOPRESSOR IV SCH ×5 (04:55→19:30)
[2018-11-20 05:11] LABS: ALLEN TEST YES; BE -0.5 mmoll (-3.0-3.0); BLOOD TYPE ARTERIAL; HCO3-(ACT) 24.5 mmoll (20.0-26.0); METHB 1.1 % (0.0-1.5); O2(CT) 15.5 mL/dL (15.0-23.0); O2HB 95.4 % (95.0-99.0); PCO2(98.6) 43 mmHg (35-45); PO2(98.6) 90 mmHg (60-100); SAMPLE BLOOD; SAO2 97.3 % (95.0-100.0); SRATE 10 BPM; THB 11.5 g/dL (11.5-17.4); TVOL 600 mL; pH(98.6) 7.37 (7.35-7.45)
[2018-11-20 05:13] LABS: MODALITY VENTILATOR
[2018-11-20 06:11] LABS: MCH 31.9 PG (27-31); MCHC 31.4 g/dL (33-37); MCV 101.4 FL (81-99); MPV 10.7 FL (7.4-10.4); RBC 3.45 XMIL (4.2-5.4); RDW 16.4 % (11.5-14.5); WBC 10.32 X1000 (4.8-10.8)
[2018-11-20 06:18] LABS: ALBUMIN 3.5 g/dL (3.5-5.0); CALCIUM 9.9 mg/dL (8.8-10.2); CREATININE 2.5 mg/dL (0.5-0.9); PHOSPHORUS 2.7 mg/dL (2.7-4.5); POTASSIUM 4.3 mmol/L (3.5-5.1)
[2018-11-20] MEDS: XOPENEX NEB INH SCH ×5 (06:57→23:10)
[2018-11-20] MEDS: ATROVENT NEB INH SCH ×5 (06:57→23:10)
--- NOTE | 2018-11-20 07:25 | Diag Imaging Result Doc PS360 ---
CHEST-PORTABLE - 11/20/2018 INDICATION: cardiac arrest COMPARISON: 11/19/2018 FINDINGS: Support lines and tubes are stable. Lung volumes are very low. No infiltrates or edema. Heart size remains stable. IMPRESSION: No complication. Low lung volumes. Electronically signed by Kadeem Griggs 11/20/2018 7:22 AM
[2018-11-20] MEDS: HEPARIN SUBQ SCH ×2 (09:12→20:24)
--- NOTE | 2018-11-20 09:32 | INFECTIOUS DISEASE PROGRESS NO ---
DATE: 11/20/2018 PRESENT ILLNESS: The patient previously had pneumonia. It has cleared. The patient also has sinusitis and it is clearing up based on the finding of the sinus x-ray which showed no opacification. MEDICATIONS: The patient is on cefepime in a dose of 1 g IV after each dialysis. PHYSICAL EXAMINATION: Vital Signs: Temperature is 99.7 degrees, pulse 116, respirations 16, blood pressure 129/64. General: This is an ill-appearing, obese, middle-aged female. She is intubated and sedated. Head, eyes, ears, nose, and throat: The patient has an orotracheal tube in place. There is no drainage coming from the patient's nose. Neck: Passive movement of the neck did not seem to cause the patient any pain. Lungs: Clear to auscultation. Cardiovascular: Regular heart rate. Abdomen: Soft and nontender. Extremities: The patient has an AV fistula in the right arm which is functional. The patient has a triple-lumen catheter in the left groin area. That site does not look purulent. Neurologic: The patient did move her arms and legs and did open her eyes on her own but did not do it when I requested her to do it. LAB AND X-RAY: Chest x-ray shows no infiltrate. Sinus x-ray shows no opacifications. [place] [address], hemoglobin 11, and platelet count of 181,000. ASSESSMENT AND PLAN: Patient has sinusitis. Pneumonia has cleared. I am going to continue cefepime after each dialysis. COMORBIDITIES: 1. Include end-stage renal disease with hemodialysis. 2. Chronic obstructive pulmonary disease. 3. Diabetes mellitus. 4. Congestive heart failure. 5. Gastroesophageal reflux disease. 6. Obesity. cc: Yinka Kumar MD
[2018-11-20] MEDS: MORPHINE IV PRN ×2 (10:20→13:57)
[2018-11-20] MEDS ORDERED: CARDIZEM NG SCH (11:00)
[2018-11-20 11:02] LABS: ALLEN TEST YES; BE -1.9 mmoll (-3.0-3.0); BLOOD TYPE ARTERIAL; HCO3-(ACT) 23.4 mmoll (20.0-26.0); METHB 0.6 % (0.0-1.5); O2HB 96.4 % (95.0-99.0); PO2(98.6) 100 mmHg (60-100); SAMPLE BLOOD; SAO2 98.2 % (95.0-100.0); THB 11.7 g/dL (11.5-17.4); pH(98.6) 7.28 (7.35-7.45)
[2018-11-20 11:04] LABS: MODALITY VENTILATOR; PCO2(98.6) 54 mmHg (35-45)
--- NOTE | 2018-11-20 11:14 | PROGRESS NOTE ---
DATE: 11/20/2018 Ms. Brooks was reported restless a little bit earlier and she received morphine just before my visit. By report, she was following some commands, using all limbs, moving about in the bed prior to morphine dose. Report is encouraging. There is global encephalopathy and still concern for anoxic brain injury but as long as there is day-to-day improvement, we cannot be certain this will be permanent. No new suggestions today. Thanks for asking neurology to see Ms. Brooks. cc: Brodie Finley III, MD [facility]
--- NOTE | 2018-11-20 14:45 | OPERATIVE NOTE ---
PROCEDURE DATE: 11/20/2018 PREOPERATIVE DIAGNOSIS: Phlebosclerosis. POSTOPERATIVE DIAGNOSIS: Phlebosclerosis. PROCEDURE: Ultrasound guided right common femoral vein central line placement. SURGEON: Nemesio Giordano MD. FILM CASTING OPERATOR: None. ANESTHESIA: Local administered by the surgeon. INTRAOPERATIVE FINDINGS: Ultrasound showed good caliber of right common femoral vein. COMPLICATIONS: None at time of dictation. ESTIMATED BLOOD LOSS: Minimal. SPECIMENS REMOVED: None. BRIEF HISTORY: A 63-year-old female who came in, and has been in the hospital for almost 10 days. She had a previous central line placed during a cardiac arrest. She needed a new one placed. The risks, benefits, and alternatives were discussed with the family, and consent was achieved. DESCRIPTION OF PROCEDURE: After informed consent was obtained, patient remained intubated on the ventilator in the ICU. The right groin was prepped and draped in sterile fashion. After a formal time-out, we used the ultrasound to identify the common femoral vein. Under local anesthetic, it was then cannulated under the 2nd pass. On the 1st pass, we hit the vein but could not get it to thread. We were able to do it on the second pass. We were able to serially dilate up the tract in the Seldinger technique to place the catheter, and there was nonpulsatile flow noted. We secured it in place. All ports were aspirated and flushed easily. The sterile dressing was applied. Patient tolerated the procedure well and remained in the ICU. cc: Nemesio Giordano MD
--- NOTE | 2018-11-20 15:11 | NEPHROLOGY PROGRESS NOTE ---
DATE: 11/20/2018 SUBJECTIVE: She opened her eyes for me today and nodded her head. Moving spontaneously. OBJECTIVE: Vital Signs: Blood pressure 92/44, heart rate 114, respirations 9, T-max 100.0. General: No acute distress. Skin: Warm and dry. Neck: Neck veins are not appreciated. Heart: Regular. Lungs: Equal. No crackles. Abdomen: Soft, nontender. Bowel sounds are present. Extremities: Have minimal edema except for the right upper extremity. IMPRESSION: Chronic kidney disease 5D. She is well managed. Her next dialysis will be tomorrow. Euvolemic. cc: Darryl Bonner MD MTDD
[2018-11-20] MEDS: PROTONIX IV SCH (16:06)
[2018-11-20] MEDS: SODIUM CHLORIDE 0.9% INJ SCH (16:06)
[2018-11-21] MEDS: HUMULIN R SUBQ SCH ×4 (01:37→14:25)
[2018-11-21] MEDS: LOPRESSOR IV SCH ×4 (02:43→21:37)
[2018-11-21 04:59] LABS: ALLEN TEST YES; BE -0.6 mmoll (-3.0-3.0); BLOOD TYPE ARTERIAL; HCO3-(ACT) 24.4 mmoll (20.0-26.0); O2(CT) 15.5 mL/dL (15.0-23.0); O2HB 95.7 % (95.0-99.0); PCO2(98.6) 49 mmHg (35-45); PO2(98.6) 99 mmHg (60-100); SAMPLE BLOOD; SAO2 97.8 % (95.0-100.0); SRATE 10 BPM; THB 11.4 g/dL (11.5-17.4); TVOL 600 mL; pH(98.6) 7.33 (7.35-7.45)
[2018-11-21 05:01] LABS: MODALITY VENTILATOR
[2018-11-21 05:16] LABS: HEMATOCRIT 36.5 % (37.0-47.0); MCH 31.4 PG (27-31); MCHC 30.1 g/dL (33-37); MCV 104.3 FL (81-99); MPV 10.9 FL (7.4-10.4); RBC 3.5 XMIL (4.2-5.4); WBC 11.72 X1000 (4.8-10.8)
[2018-11-21 05:34] LABS: CALCIUM 9.9 mg/dL (8.8-10.2); CREATININE 4.3 mg/dL (0.5-0.9); POTASSIUM 4.6 mmol/L (3.5-5.1)
[2018-11-21] MEDS ORDERED: NS 2,000 ML MISC PRN (06:11)
[2018-11-21] MEDS: XOPENEX NEB INH SCH ×5 (07:20→23:14)
--- NOTE | 2018-11-21 07:28 | Diag Imaging Result Doc PS360 ---
CHEST-PORTABLE - 11/21/2018 INDICATION: cardiac arrest COMPARISON: 11/20/2018 FINDINGS: Support lines and tubes are stable. Stable cardiomegaly. Stable pulmonary vascular congestion. No significant infiltrates or edema. No pneumothorax or pleural effusion. IMPRESSION: Cardiomegaly and pulmonary vascular congestion. No complication or change from prior. Electronically signed by Kadeem Griggs 11/21/2018 7:26 AM
[2018-11-21] MEDS: ATROVENT NEB INH SCH ×5 (07:30→23:14)
--- NOTE | 2018-11-21 07:40 | NEPHROLOGY PROGRESS NOTE ---
DATE: 11/21/2018 SUBJECTIVE: Again, eyes are closed. When I asked her to open her eyes she shook her head no. OBJECTIVE: Vitals: Blood pressure 151/100, heart rate 113, respirations 21. Afebrile. Intake 1 L, output 11 mL. General: No acute distress. Skin: Warm and dry. HEENT: Oropharynx is moist. Neck: Supple. Trachea is midline. Neck veins are not appreciated. Heart: Regular and tachycardic. Lungs: The lungs have equal breath sounds. No crackles or wheezes. Abdomen: Soft, nontender. Bowel sounds are present. Extremities: The extremities have no edema, clubbing, or cyanosis. IMPRESSION: Chronic kidney disease, 5D. She will have SLED today with a goal of 1 L ultrafiltration. Four K bath, 27 bicarbonate. Her electrolytes and acid-base are in target and hemoglobin is at target. No other changes. cc: Darryl Bonner MD
[2018-11-21] MEDS: HEPARIN SUBQ SCH ×2 (09:08→21:04)
[2018-11-21] MEDS: HALDOL IV PRN ×2 (09:08→15:00)
[2018-11-21] MEDS ORDERED: DULCOLAX PR PRN (09:54)
[2018-11-21] MEDS ORDERED: DULCOLAX PR ONE (09:54)
[2018-11-21] MEDS: D50W 250 ML, AMINOSYN 15% 500 ML, LIPOSYN 20% 250 ML SCH ×3 (10:30)
[2018-11-21] MEDS: LACTULOSE PO SCH ×2 (10:33→21:04)
[2018-11-21] MEDS: MIRALAX PO SCH (10:33)
[2018-11-21] MEDS: MORPHINE IV PRN (12:11)
--- NOTE | 2018-11-21 12:47 | PROGRESS NOTE ---
DATE: 11/21/2018 Ms. Brooks has been awake and alert enough to be uncooperative with some of her care. She is undergoing dialysis now. She has had a few doses of morphine 2 mg in the last 24 hours and she had one dose of haloperidol 5 mg this morning. There has not been a definite focal neurologic finding. I do not have any new thoughts or new suggestions today from Neurology standpoint. Her apparent alertness and attention are encouraging, but there is still a possibility of incomplete recovery and some permanent anoxic/ischemic brain injury. Time will tell. Thanks for asking us to see Ms. Brooks. cc: Brodie Finley III, MD [facility]
--- NOTE | 2018-11-21 14:06 | GASTROENTEROLOGY PROGRESS NOTE ---
DATE: 11/21/2018 SUBJECTIVE: The patient is restless per nurse report. She had to be given some Haldol for restlessness. Per record, she seems to be following some purposeful commands at times. OBJECTIVE: Vital Signs: Temperature 98.2 degrees, pulse 116, respirations 16, blood pressure 141/68. General: The patient was agitated at the time of my evaluation. She was recently given Haldol. She remains on mechanical ventilation. Also receiving sled dialysis. LABORATORY: Hematology: WBC 11.72, hemoglobin 11.0, hematocrit 36.5, MCV 104.3, platelet 176,000. Chemistry: Sodium 143, potassium 4.6, chloride 106, CO2 24, BUN 35, creatinine 4.3, glucose 249. ASSESSMENT AND PLAN: 1. Recent cardiovascular arrest/respiratory failure. Continue on mechanical ventilation. 2. Pneumonia, on antibiotics. 3. Encephalopathy, continue to follow with Neurology. 4. End-stage renal disease. Following with Nephrology. Continue dialysis per recommendation. We will continue to follow and be available as needed. I have discussed this case with Dr. Heath. Dictated by MALINA Elkins for Caden Heath MD cc: MALINA Dukes MD
[2018-11-21] MEDS: PROTONIX IV SCH (16:04)
[2018-11-21] MEDS: LANTUS INSULIN SUBQ SCH (16:04)
[2018-11-21] MEDS: HUMALOG SUBQ SCH ×2 (16:04→20:41)
[2018-11-21] MEDS ORDERED: MAXIPIME 1 GM in NS 50 ML IV SCH (17:00)
--- NOTE | 2018-11-21 17:05 | PROGRESS NOTE ---
DATE: 11/20/2018 SUBJECTIVE: She was doing well, more awake, following commands. I think she gets more responsive to her family than anybody else. OBJECTIVE: Vital Signs: Blood pressure was 130/70, heart rate 113, respiratory rate 12, temperature 98.2 degrees. Cardiovascular: Regular rate and rhythm. Pulmonary: Bilateral breath sounds clear to auscultation. GI: Soft, nontender, nondistended. Bowel sounds are positive. LABORATORY DATA: White count is 10, hemoglobin and hematocrit 11 and 35, platelets 181,000. The pH was 7.28, pCO2 54, pO2 100. Creatinine of 2.5. PROBLEM LIST: 1. Acute on chronic hypoxic respiratory failure related to cardiac arrest, pneumonia. She is getting weaning trials. Pulmonary is following. 2. Pneumonia and sinusitis. Currently on cefepime for a Branhamella/Moraxella catarrhalis infection. Dr. Kumar is managing. She is on cefepime at renal dosing. 3. Encephalopathy overall improved. We will continue to monitor. 4. End-stage renal. She is getting sled therapy per Dr. Bonner, off vasopressors. 5. Type 2 diabetes, on sliding scale. 6. Moderate protein calorie malnutrition. She is on tube feeds. 7. Fever, tachycardia. Out of concern over possible underlying infection, her central line has been in for 11 days. I agree with nurse that this may be a source of infection and we need to relocate the site. I have consulted surgery because I have had difficulty getting in lines previously, to find a new line placement and we will follow. Further management per Infectious Disease. We will initiate Lopressor for her relative tachycardia and follow. DISPOSITION: Pending her clinical status. cc: Jose Kuo MD
--- NOTE | 2018-11-21 17:08 | PROGRESS NOTE ---
DATE: 11/21/2018 SUBJECTIVE: The patient is doing well on minimal support. OBJECTIVE: Vital Signs: Blood pressure is currently 130/70, heart rate 113, respiratory rate 12. Temperature has defervesced, was 98.2. Cardiovascular: Tachy. Pulmonary: Occasional rhonchi. No wheezing. GI: Soft, nontender, nondistended. Bowel sounds are positive. LABORATORY DATA: White count 11, hemoglobin and hematocrit 11 and 36, platelets 176,000. The pH was 7.33, pCO2 49, pO2 99. Creatinine of 4.3. PROBLEM LIST: 1. Acute hypoxic respiratory failure, status post cardiac arrest with evidence of volume overload. Continue dialysis. Supportive therapy. Pulmonary is following this for weaning trials. 2. Pneumonia. She is on cefepime for Branhamella/Moraxella catarrhalis. We will continue treatment and follow. 3. Encephalopathy overall has improved. May be medication related versus ICU delirium, but her mental status improving, I think to the point where she will most likely be able to be extubated. I do not think there is any per se evidence of hypoxic damage. 4. End-stage renal. She is on sled therapy based on low blood pressures. 5. Type 2 diabetes. She is on sliding scale insulin. We may need to adjust further. 6. Moderate protein calorie malnutrition. She is on tube feeds to sustain her which she is tolerating without difficulty. 7. Tachycardia. We will continue to monitor. She is on Lopressor. DISPOSITION: Pending improvement in her clinical status. cc: Jose Kuo MD
--- NOTE | 2018-11-21 18:07 | INFECTIOUS DISEASE PROGRESS NO ---
DATE: 11/21/2018 ASSESSMENT AND PLAN: Ms. Brooks has been treated for Branhamella pneumonia and an Acinetobacter sinusitis both of which have cleared. She has received 10 days worth of cefepime. At this point, we will put a stop date after 4 more days and will sign off at this time. We will be available on an as-needed basis. These plans have been discussed with and recommended by Dr. Kumar. Dictated by MALINA Echevarria for Yinka Kumar MD cc: Yinka Kumar MD [facility]
[2018-11-21] MEDS ORDERED: D50W SYRINGE IV ONE (19:49)
[2018-11-22] MEDS: HUMALOG SUBQ SCH ×6 (00:02→19:58)
[2018-11-22] MEDS: LOPRESSOR IV SCH ×5 (01:38→19:57)
[2018-11-22 04:58] LABS: ALLEN TEST YES; BE -6.6 mmoll (-3.0-3.0); BLOOD TYPE ARTERIAL; HCO3-(ACT) 19.8 mmoll (20.0-26.0); O2(CT) 15.6 mL/dL (15.0-23.0); O2HB 96.1 % (95.0-99.0); PCO2(98.6) 38 mmHg (35-45); PO2(98.6) 123 mmHg (60-100); SAMPLE BLOOD; SAO2 97.8 % (95.0-100.0); SRATE 10 BPM; THB 11.4 g/dL (11.5-17.4); TVOL 600 mL; pH(98.6) 7.31 (7.35-7.45)
[2018-11-22 05:05] LABS: MODALITY VENTILATOR
[2018-11-22 06:34] LABS: HEMATOCRIT 37.7 % (37.0-47.0); HEMOGLOBIN 11.1 g/dL (12.0-16.0); MCH 30.3 PG (27-31); MCHC 29.4 g/dL (33-37); MPV 11.5 FL (7.4-10.4); RBC 3.66 XMIL (4.2-5.4); RDW 15.9 % (11.5-14.5); WBC 13.56 X1000 (4.8-10.8)
[2018-11-22 07:31] LABS: ALBUMIN 3.1 g/dL (3.5-5.0); CALCIUM 10.2 mg/dL (8.8-10.2); CREATININE 2.6 mg/dL (0.5-0.9); PHOSPHORUS 2.4 mg/dL (2.7-4.5)
[2018-11-22] MEDS: XOPENEX NEB INH SCH ×4 (07:50→19:37)
[2018-11-22] MEDS: ATROVENT NEB INH SCH ×4 (07:50→19:37)
--- NOTE | 2018-11-22 07:52 | Diag Imaging Result Doc PS360 ---
EXAM: CHEST-PORTABLE INDICATION: cardiac arrest TECHNIQUE: One view COMPARISON: 11/21/2018 FINDINGS: Support tubes and lines are in stable positions. There is stable mild pulmonary venous congestion. No new consolidation is identified. There is stable cardiomegaly. IMPRESSION: Stable chest. Electronically signed by Deyvi Workman 11/22/2018 7:49 AM
[2018-11-22] MEDS: LANTUS INSULIN SUBQ SCH (09:31)
[2018-11-22] MEDS: MIRALAX PO SCH (09:31)
[2018-11-22] MEDS: LACTULOSE PO SCH ×2 (09:31→20:02)
[2018-11-22] MEDS: HEPARIN SUBQ SCH ×2 (09:31→20:01)
[2018-11-22 10:56] LABS: ALLEN TEST YES; BE -2.7 mmoll (-3.0-3.0); BLOOD TYPE ARTERIAL; HCO3-(ACT) 22.8 mmoll (20.0-26.0); METHB 0.9 % (0.0-1.5); MODALITY VENTILATOR; O2(CT) 15.3 mL/dL (15.0-23.0); PCO2(98.6) 44 mmHg (35-45); PO2(98.6) 108 mmHg (60-100); SAMPLE BLOOD; SAO2 97.8 % (95.0-100.0); THB 11.2 g/dL (11.5-17.4); pH(98.6) 7.33 (7.35-7.45)
--- NOTE | 2018-11-22 13:26 | PROGRESS NOTE ---
DATE: 11/22/2018 SUBJECTIVE: She is intubated, sedated, but she still does respond to stimuli. OBJECTIVE: Vital Signs: Blood pressure was 90s/60s, heart rate was in the 1-teens/1-twenties, afebrile. Cardiovascular: Tachy. Pulmonary: Bilateral breath sounds. Clear to auscultation. GI: Soft, nontender, nondistended. Bowel sounds are positive. LABORATORY DATA: Her white count is 13 which is up from 11 yesterday. H and H is 11 and 37, platelets 186. The pH is 7.33, pCO2 44, PaO2 108, creatinine 2.6, phosphorus 2.4, albumin 3.1. PROBLEM LIST: 1. Acute hypoxic respiratory failure, status post cardiac arrest. She maintains on dialysis. She is still on the ventilator. Pulmonary is following. 2. Pneumonia. She has completed treatment for that. 3. Moraxella catarrhalis sinusitis. She is on cefepime renally-dosed per Dr. Kumar. 4. Encephalopathy is slowly improving, working towards extubation per Pulmonary. Continue weaning trials. 5. End-stage renal disease. She is on slow, low efficiency dialysis therapy now per Dr. Kumar, although she is not getting it today. I think she is getting a break today. 6. Type 2 diabetes. Blood sugars are still somewhat elevated, although improved. We switched her tube feeds to Glucerna. She actually had a couple low blood sugars last night. We will continue to follow. 7. Moderate protein calorie malnutrition, again on tube feeds. 8. Relative tachycardia. She is on Lopressor, but is also hypotensive and trying to manage that. DISPOSITION: Pending improvement in her clinical status. cc: Jose Kuo MD [facility]
--- NOTE | 2018-11-22 13:41 | NEPHROLOGY PROGRESS NOTE ---
DATE: 11/22/2018 SUBJECTIVE: Ms. Brooks is still on the ventilator. They have plan for extubation. OBJECTIVE: Vital Signs: Blood pressure 115/57, heart rate 115, respirations 31, afebrile. General: No acute distress. Skin: Warm and dry. HEENT: Conjunctivae are pink. Neck: Neck veins not appreciated. Heart: Regular and tachycardic. Lungs: Equal. No crackles. Abdomen: Soft, nontender. Bowel sounds are present. Extremities: No edema, clubbing or cyanosis. IMPRESSION: Chronic kidney disease 5D. She is well dialyzed. Bicarbonate is below target but acceptable. Euvolemic. No changes. cc: Darryl Bonner MD
[2018-11-22] MEDS ORDERED: S2 RACEPINEPHRINE 2.25% ONE (13:42)
[2018-11-22] MEDS: PROTONIX IV SCH (16:12)
[2018-11-22] MEDS: NEO-SYNEPHRINE 50 MG in NS 250 ML IV SCH (17:40)
[2018-11-23] MEDS: HUMALOG SUBQ SCH ×6 (00:02→20:34)
[2018-11-23] MEDS: XOPENEX NEB INH SCH ×6 (00:12→23:12)
[2018-11-23] MEDS: ATROVENT NEB INH SCH ×6 (00:12→23:12)
[2018-11-23] MEDS: LOPRESSOR IV SCH ×4 (01:32→20:34)
[2018-11-23 05:08] LABS: ALLEN TEST YES; BE -4.1 mmoll (-3.0-3.0); BLOOD TYPE ARTERIAL; HCO3-(ACT) 21.7 mmoll (20.0-26.0); METHB 0.8 % (0.0-1.5); O2(CT) 14.6 mL/dL (15.0-23.0); O2HB 96.1 % (95.0-99.0); PCO2(98.6) 50 mmHg (35-45); PO2(98.6) 109 mmHg (60-100); SAMPLE BLOOD; SAO2 97.9 % (95.0-100.0); THB 10.7 g/dL (11.5-17.4); pH(98.6) 7.27 (7.35-7.45)
[2018-11-23 05:09] LABS: MODALITY BI PAP
--- NOTE | 2018-11-23 06:33 | Diag Imaging Result Doc PS360 ---
EXAM: CHEST-PORTABLE HISTORY: cardiac arrest TECHNIQUE: Chest single view COMPARISON: 11/22/2018 FINDINGS: The endotracheal and nasogastric tubes have been removed. The lungs are well expanded. Heart is borderline mildly prominent. Central vascular distention. No consolidation. No pleural effusions. IMPRESSION: Removal of the endotracheal and nasogastric tubes, but otherwise stable exam Electronically signed by Jhonny Sanchez 11/23/2018 6:31 AM
[2018-11-23 06:38] LABS: HEMATOCRIT 38.2 % (37.0-47.0); MCH 30.1 PG (27-31); MCHC 28.8 g/dL (33-37); MCV 104.4 FL (81-99); MPV 11.2 FL (7.4-10.4); RBC 3.66 XMIL (4.2-5.4); RDW 15.9 % (11.5-14.5); WBC 12.19 X1000 (4.8-10.8)
[2018-11-23 07:08] LABS: CALCIUM 10.3 mg/dL (8.8-10.2); CREATININE 4.1 mg/dL (0.5-0.9); PHOSPHORUS 4.1 mg/dL (2.7-4.5); POTASSIUM 5.7 mmol/L (3.5-5.1)
[2018-11-23] MEDS: NEO-SYNEPHRINE 50 MG in NS 250 ML IV SCH (08:02)
[2018-11-23] MEDS: HEPARIN SUBQ SCH ×2 (08:28→20:33)
[2018-11-23] MEDS: LANTUS INSULIN SUBQ SCH (08:28)
[2018-11-23] MEDS: MIRALAX PO SCH (08:39)
[2018-11-23] MEDS: LACTULOSE PO SCH ×2 (08:39→20:38)
--- NOTE | 2018-11-23 13:34 | PROGRESS NOTE ---
DATE: 11/23/2018 SUBJECTIVE: She is minimally responsive and she does move but she is not following commands this morning. She is a bit more acidotic, pH 7.27, pCO2 is up a bit at 50. Her bicarb is at 21. White count 12, Hemoglobin and hematocrit 11 and 38, platelets 217. Potassium 5.7, creatinine up to 4.1, calcium 10.3. PROBLEM LIST: 1. Acute hypoxic and hypercapnic respiratory failure, status post cardiac arrest. She has been extubated. She was extubated to BiPAP and not been effectively able to get her off BiPAP yet but she tolerated it. She has just not tolerated being off BiPAP which we are still working on that. I think maybe if we get her mental status a bit better, hopefully maybe with dialysis and improvement in her acidosis, maybe that will help unless she has had some brain injury. I would like to pursue MRI that will maybe help us reveal if there is more hypoxic issues, but she is on BiPAP. I can't do that while she is maintained on BiPAP. 2. Pneumonia she has completed antibiotics per Dr. Kumar. 3. Moraxella which is dubbed Branhamella here catarrhalis sinusitis. She is on cefepime which was started on the , well it has been longer than that it is going to go through the . 4. Encephalopathy. We are going to continue to follow. MRI when stable or per other recommendations per renal. 5. Type 2 diabetes. She is stable right now. She is not on any nutrition. We will need to resume IDPN pending dialysis. 6. Tachycardia, hypotension, which may be related to multiple issues, cardiac issues, sepsis. We did have to reinstitute Darell-Synephrine yesterday so we will dub this is a 32 minute critical care note and follow. cc: Jose Kuo MD
[2018-11-23] MEDS: PROTONIX IV SCH (16:25)
[2018-11-24] MEDS: HUMALOG SUBQ SCH ×6 (00:52→20:16)
[2018-11-24] MEDS: LOPRESSOR IV SCH ×4 (02:37→18:53)
--- NOTE | 2018-11-24 06:31 | Diag Imaging Result Doc PS360 ---
EXAM: CHEST-PORTABLE HISTORY: cardiac arrest TECHNIQUE: Portable chest single view COMPARISON: 11/23/2018 FINDINGS: The lungs are well expanded. The heart is mildly enlarged. The vessels are not distended. There are no infiltrates. No effusion identified. There is a vascular stent overlying the upper right chest. IMPRESSION: Stable chest. Electronically signed by Jhonny Sacnhez 11/24/2018 6:29 AM
[2018-11-24] MEDS ORDERED: NS 2,000 ML MISC PRN (06:39)
[2018-11-24 07:06] LABS: HEMATOCRIT 36.1 % (37.0-47.0); HEMOGLOBIN 10.8 g/dL (12.0-16.0); MCH 31.3 PG (27-31); MCHC 29.9 g/dL (33-37); MCV 104.6 FL (81-99); MPV 11.2 FL (7.4-10.4); RBC 3.45 XMIL (4.2-5.4); RDW 15.7 % (11.5-14.5); WBC 10.03 X1000 (4.8-10.8)
[2018-11-24] MEDS: XOPENEX NEB INH SCH ×5 (07:45→23:39)
[2018-11-24] MEDS: ATROVENT NEB INH SCH ×5 (07:47→23:39)
[2018-11-24 07:54] LABS: ALBUMIN 3.1 g/dL (3.5-5.0); CALCIUM 10.6 mg/dL (8.8-10.2); CREATININE 6.2 mg/dL (0.5-0.9); PHOSPHORUS 4.6 mg/dL (2.7-4.5); POTASSIUM 5.6 mmol/L (3.5-5.1)
[2018-11-24] MEDS: LANTUS INSULIN SUBQ SCH (08:54)
[2018-11-24] MEDS: HEPARIN SUBQ SCH ×2 (08:55→22:18)
[2018-11-24] MEDS: LACTULOSE PO SCH ×2 (08:57→20:16)
[2018-11-24] MEDS: MIRALAX PO SCH (08:58)
[2018-11-24] MEDS: HEPARIN IV PRN (09:00)
[2018-11-24] MEDS: NEO-SYNEPHRINE 50 MG in NS 250 ML IV SCH ×2 (09:37→20:03)
--- NOTE | 2018-11-24 10:06 | NEPHROLOGY PROGRESS NOTE ---
Face to face encounter, data reviewed, discussed with Didi Cortez on 11/24/18. I agree with the above assessment and plan of care. DATE: 11/24/2018 TIME SEEN: 0710. SUBJECTIVE: Ms. Brooks is resting quietly in bed, head of the bed is slightly elevated. She has been extubated. She remains on BiPAP. She is awake. VITALS: On her most recent vital signs, patient's last temperature 98.6, blood pressure 124/77, heart rate 115, respirations are 20. Patient remains on 30% BiPAP. Last recorded saturation is 93%. She has had 65 in and 26 mL out. LABS: Sodium is 142, potassium 5.6, chloride 107, CO2 20, BUN 52, creatinine 6.2, glucose 135, anion gap of 15, calcium 10.6, phosphorus 4.6, albumin 3.1. White count 10.03, hemoglobin 10.8, hematocrit 36.1 with a platelet count of 275,000. PHYSICAL EXAMINATION: General: This is a 63-year-old -[place] female resting quietly in bed. She is awake and alert, though she drifts off back to sleep. She remains on BiPAP support. HEENT: Normocephalic, atraumatic. Conjunctiva is pale pink. She has ELIZABETH. Mucous membranes are dry. Neck: Supple. Trachea midline. No evidence of JVD. Cardiovascular: She is regular rate and rhythm. She is tachycardic without murmur or gallop. Lungs: Clear to auscultation bilaterally, equal excursion on O2 support per BiPAP. Genitourinary: Not inspected. Minimal void with dialysis assist. Extremities: Have no edema. No clubbing or cyanosis. ASSESSMENT AND PLAN: 1. Chronic kidney disease stage 5D. Patient is in need for her hemodialysis treatment today. Due to the requirements of Darell-Synephrine drip, we will place her on slow low-efficiency dialysis (SLED). She is to dialyze for 8 hours. We will put her on a 3K bath. We will attempt to pull 2 to 3 liters of ultrafiltration as tolerated. 2. Electrolytes and acid-base balance, again with correction on dialysis. 3. Anemia. This is close to target. 4. Fluid volume overload. Patient remains euvolemic, again, with assistance with dialysis. I would like to thank you for allowing us to follow with this patient. Dictated by MALINA Vilchis for Darryl Bonner MD Face to face encounter, data reviewed, discussed with Didi Cortez on 11/24/18. I agree with the above assessment and plan of care. cc: MALINA Vilchis MD [facility]
[2018-11-24] MEDS: D50W 250 ML, AMINOSYN 15% 500 ML, LIPOSYN 20% 250 ML SCH ×3 (11:30)
--- NOTE | 2018-11-24 11:37 | PROGRESS NOTE ---
DATE: 11/24/2018 SUBJECTIVE: Patient has no major complaints. OBJECTIVE: Vitals: Blood pressure is 124/77, heart rate 115, respiratory rate 17, temperature was 98.6 degrees, 99% on 30%. Cardiovascular: Regular rate and rhythm. Pulmonary: Bilateral breath sounds, clear to auscultation. GI: Soft, nontender, nondistended. Bowel sounds are positive. LABORATORY DATA: White count is 10, hemoglobin and hematocrit 10 and 36, platelets 275,000. Potassium 5.6, creatinine 6.2. PROBLEM LIST: 1. Acute hypoxic hypercapnic respiratory failure, status post cardiac arrest. She has been extubated to BiPAP, but has not been able to come off BiPAP. Wean parameters a little bit today. Pulmonary is following. We will continue. Hopefully if her neurological status is improved, we can do that. 2. Pneumonia, she has completed antibiotics. 3. Moraxella catarrhalis sinusitis. She is on Cefepime, which is going to go through tomorrow per Infectious Disease. 4. Encephalopathy, possible hypoxic versus metabolic. For a brief time she did somewhat improve, but then since then, she is still out of it. Neurology is following. MRI may be of importance once she is stabilized, but cannot get her off BiPAP right now to do that. 5. Diabetes. She is on IDPN per dialysis. We will have to kind of figure out long-term. 6. Tachycardia. 7. Hypotension, which she is on Darell-Synephrine intermittently because of her low blood pressure. We will continue to follow closely. DISPOSITION: Pending her clinical status. cc: Jose Kuo MD
--- NOTE | 2018-11-24 14:21 | GASTROENTEROLOGY PROGRESS NOTE ---
DATE: 11/24/2018 SUBJECTIVE: The patient was extubated yesterday and is now on BiPAP. There is no purposeful response to stimulus. She does move around when stimulated. OBJECTIVE: Vital Signs: Temperature 99.8 degrees, pulse 99, respirations 20, blood pressure 79/57. General: The patient with eyes closed on BiPAP. With stimulus she would squint her eyes and move some but not purposeful response. LABORATORY: Hematology: WBC 10.03, hemoglobin 10.8, hematocrit 36.1, MCV 104.6. Chemistry: Sodium 142, potassium 5.6, chloride 107, CO2 20, BUN 52, creatinine 6.2, glucose 135. ASSESSMENT AND PLAN: 1. Respiratory failure. Patient has been extubated and is on BiPAP. Continue current management. Continue following with pulmonology. 2. Pneumonia, on antibiotics. 3. Sinusitis, Moraxella catarrhalis on antibiotics, following with infectious disease. 4. Recent cardiac arrest. Patient still with encephalopathy. Neurology is following. 5. Gastroenterology will continue to follow and be available as needed. 6. Further plans to be made according to her progress. 7. I have discussed this case with Dr. Heath. Dictated by MALINA Elkins for Caden Heath MD cc: MALINA Dukes MD
[2018-11-24] MEDS: MORPHINE IV PRN (15:07)
[2018-11-24] MEDS: PROTONIX IV SCH (16:34)
[2018-11-24] MEDS: SODIUM CHLORIDE 0.9% INJ SCH (16:34)
--- NOTE | 2018-11-24 17:05 | PROGRESS NOTE ---
DATE: 11/24/2018 Ms. Brooks has had some periods of improved responsiveness, but this is usually associated with restlessness. She is undergoing dialysis at the time of my rounds. Medicines include cefepime and many others. She has not had haloperidol in about 72 hours. She had 1 dose of morphine 2 mg earlier this afternoon and otherwise no morphine in about 72 hours. BUN was 52 which is highest so far this admission, but she has had BUN 60s to 100s in the past (last December). Blood sugars have ranged 100s to 300s. Calcium is up to 10.6. Phosphorus is borderline high at 4.6. She is afebrile. She did not respond to me at the bedside. She has some withdrawal of each limb with moderate stimulation. She moved her arms a little bit spontaneously, but that did not seem to be purposeful. There is full lateral eye movement with passive head turning. Corneal reflexes are present bilaterally. I thought there was very brief, but inconsistent right pupil reaction to bright light. I did not see left pupil reaction. Facial motility continues diminished bilaterally, but symmetric. Head and neck are unremarkable. There is no meningismus. I discussed her continued encephalopathy with at the bedside. There still may be a irreversible anoxic/ischemic injury. There have been some times with increased alertness, which is encouraging. I do not think we need urgent workup now. We will consider further brain imaging when practical. EEG might also be helpful later. Thanks for asking Neurology to see Ms. Brooks. cc: MD JUDAH Royal III
[2018-11-24] MEDS: LOPRESSOR 10 MG in NS 50 ML IV SCH (20:03)
[2018-11-25] MEDS: LOPRESSOR 10 MG in NS 50 ML IV SCH ×4 (00:03→18:25)
[2018-11-25] MEDS: HUMALOG SUBQ SCH ×6 (04:19→20:15)
[2018-11-25] MEDS: NEO-SYNEPHRINE 50 MG in NS 250 ML IV SCH (04:25)
[2018-11-25 05:14] LABS: ALLEN TEST YES; BE -5.9 mmoll (-3.0-3.0); BLOOD TYPE ARTERIAL; HCO3-(ACT) 20.3 mmoll (20.0-26.0); METHB 0.7 % (0.0-1.5); O2(CT) 16.4 mL/dL (15.0-23.0); O2HB 96.8 % (95.0-99.0); PCO2(98.6) 41 mmHg (35-45); PO2(98.6) 121 mmHg (60-100); SAMPLE BLOOD; SAO2 98.6 % (95.0-100.0); THB 11.9 g/dL (11.5-17.4)
[2018-11-25 05:15] LABS: MODALITY BI PAP
[2018-11-25 05:58] LABS: HEMATOCRIT 37.8 % (37.0-47.0); HEMOGLOBIN 11.1 g/dL (12.0-16.0); MCH 31.1 PG (27-31); MCHC 29.4 g/dL (33-37); MCV 105.9 FL (81-99); MPV 10.9 FL (7.4-10.4); RBC 3.57 XMIL (4.2-5.4); RDW 15.8 % (11.5-14.5); WBC 13.86 X1000 (4.8-10.8)
[2018-11-25 06:24] LABS: ALBUMIN 3.1 g/dL (3.5-5.0); CALCIUM 9.8 mg/dL (8.8-10.2); CREATININE 3.4 mg/dL (0.5-0.9); PHOSPHORUS 3.9 mg/dL (2.7-4.5); POTASSIUM 4.9 mmol/L (3.5-5.1)
--- NOTE | 2018-11-25 06:39 | Diag Imaging Result Doc PS360 ---
CHEST-PORTABLE - 11/25/2018 INDICATION: cardiac arrest COMPARISON: 11/24/2018 FINDINGS: Stable cardiomegaly and pulmonary vascular congestion. No infiltrates or edema. No pneumothorax or pleural effusion. IMPRESSION: Cardiomegaly and pulmonary vascular congestion. Electronically signed by Kadeem Griggs 11/25/2018 6:37 AM
[2018-11-25] MEDS: ATROVENT NEB INH SCH ×5 (08:18→23:30)
[2018-11-25] MEDS: XOPENEX NEB INH SCH ×4 (08:18→23:30)
[2018-11-25] MEDS: LACTULOSE PO SCH (08:42)
[2018-11-25] MEDS: MIRALAX PO SCH (08:43)
--- NOTE | 2018-11-25 08:46 | NEPHROLOGY PROGRESS NOTE ---
DATE: 11/25/2018 TIME SEEN: 0640. SUBJECTIVE: Ms. Brooks remains on BiPAP. She does not open her eyes. She remains nonverbal this a.m. OBJECTIVE: Vitals: Her most recent vital signs, temperature 100.1 degrees, which is her highest temperature in the last 24 hours, blood pressure 134/63, heart rate 93, respirations 24, she remains on 30% BiPAP. Last recorded saturation 96%. General: This is a 63-year-old female resting quietly in bed. She appears chronically ill. No acute distress. More obtunded today. HEENT: Normocephalic, atraumatic. Conjunctivae pale pink. She has ELIZABETH. Mucous membranes are dry. Neck: Supple. Trachea midline. No evidence of JVD. Cardiovascular: She is regular rate and rhythm. Tachycardic. She is without murmur or gallop. Lungs: Clear to auscultation bilaterally. Equal excursion. Remains on O2 support. Abdomen: Soft, nontender, positive bowel sounds. Genitourinary: Not inspected. Patient has minimal urine out with dialysis assist. Extremities: Trace edema. INPUT AND OUTPUT: She has had 705 in, 3313 out with 2.29 L removed on dialysis. LABORATORIES: Sodium 138, potassium 4.9, chloride 104, CO2 19, BUN 32, creatinine 3.4, glucose 149, anion gap of 15, calcium 9.8, phosphorus 3.9, albumin is 3.1. White count 13.86, hemoglobin 11.1, hematocrit 37.8, with a platelet count of 391,000. Arterial blood gases: PH 7.3, CO2 41, PO2 121, bicarb 20.3, with a lactate of 1 on 30% BiPAP. ASSESSMENT AND PLAN: 1. Chronic kidney disease stage 5D. The patient tolerated her dialysis treatment yesterday. No indications for treatment today. 2. Electrolytes and acid-base balance. These are stable with correction on dialysis. 3. Anemia. This is close to target. 4. Fluid volume overload. Patient had approximately 3.3 L removed on dialysis yesterday. Plan for dialysis again in the morning. I would like to thank you for allowing us to follow with this patient. Dictated by MALINA Vilchis for Darryl Bonner MD Face to face encounter, data reviewed, discussed with Didi Cortez on 9. I agree with the above assessment and plan of care. cc: MALINA Vilchis MD [facility]
[2018-11-25] MEDS: LANTUS INSULIN SUBQ SCH (08:52)
[2018-11-25] MEDS: HEPARIN SUBQ SCH ×2 (08:52→20:15)
--- NOTE | 2018-11-25 12:02 | PROGRESS NOTE ---
DATE: 11/25/2018 SUBJECTIVE: Patient has no complaints. OBJECTIVE: Vitals: Blood pressure is 122/69, 111/66, heart rate 116, respiratory rate 20, temperature was 97.4 degrees. Cardiovascular: Regular rate and rhythm. Pulmonary: Bilateral breath sounds clear to auscultation, diminished. Neurologic: She does not follow commands. Her eyes are open, but she does not follow commands. She just grimaces. She is not cognizant. Vital Signs: Heart rate 104, respiratory rate 20, temperature 97.4 degrees 99% on 30%. LABORATORY DATA: White count 13, hemoglobin and hematocrit 11 and 37 platelets 391,000. PH 7.30, pCO2 41, PaO2 121, potassium 3.4. PROBLEM LIST: 1. Acute hypercapnic hypoxic respiratory failure. She has been extubated to BiPAP, but is now BiPAP dependent at this point. In any case we cannot take her off without her becoming extremely tachypneic, tachycardic and at high risk for decompensation. We will need to discuss with family about reintubation in this setting, especially since her neurological status is not much improved and there is concern over possible anoxic injury. 2. Moraxella catarrhalis sinusitis. She is on cefepime per Infectious Disease. I think today may be the last day. 3. Encephalopathy, possibly hypoxic metabolic. Neurology is following. I think MRI would be useful in kind of determining things prognostically, but we can get her off BiPAP to complete that. Prognosis poor. 4. Diabetes. She is on IDPN. We are following, sliding scale, she is on Lantus. 5. Tachycardia, hypotension. She is on Darell-Synephrine, especially with dialysis. 6. End-stage renal. She is on dialysis per their recommendations. DISPOSITION: We will need to have continued conversations with family about what they want to do next, because we may need to look at a PEG tube. But then need to decide about reintubation, which I really am not sure at this point it is going to benefit the patient, but we will continue to follow. cc: Jose Kuo MD
--- NOTE | 2018-11-25 12:52 | PROGRESS NOTE ---
DATE: 11/25/2018 Ms. Brooks has continued to appear restless, moving around in the bed, moving all limbs spontaneously, but not communicating. On my exam, she initially appeared to be asleep but opened her eyes, looked at me, seemed to fix her gaze on me to her right, but she did not follow me to the left and did not look to her left when I called from that side. She used each limb spontaneously, but I could not tell definite reproducible purposeful movement in the limbs. Withdrawal was symmetric. Limb tone is symmetric. Neck is supple. IMPRESSION: Global encephalopathy, a question of anoxic/ischemic brain injury, nothing new neurologically. I do not have any new suggestion today. We will consider repeat brain imaging and EEG later. Thanks for asking Neurology to see Ms. Brooks. cc: Brodie Finley III, MD
--- NOTE | 2018-11-25 13:27 | GASTROENTEROLOGY PROGRESS NOTE ---
DATE: 11/25/2018 SUBJECTIVE: Patient is currently on BiPAP. She continues to have no purposeful response. She does get agitated. OBJECTIVE: Vital Signs: Temperature 97.4 degrees, pulse 116, respirations 20, blood pressure 122/69. General: The patient is with eyes closed. No purposeful response. She gets agitated with increased stimulus. She is on BiPAP. LABORATORY: Hematology: WBC 13.86 hemoglobin 11.1, hematocrit 37.8, MCV 105.9, platelet 391. Chemistry: Sodium 138, potassium 4.9, chloride 104, CO2 19. BUN 32, creatinine 3.4, glucose 149, calcium 9.8, phosphorus 3.9. ASSESSMENT AND PLAN: 1. Respiratory failure, cardiac arrest. Patient has been extubated and is currently on BiPAP. They have been unable to wean her off of BiPAP. 2. Sinusitis. Following with Infectious Disease. 3. Encephalopathy. Neurology is following. 4. Nutritional support: She is currently getting intravenous nutrition. Unfortunately due to her sinusitis, nasogastric tube could not be placed for feedings. Patient is at very high risk for proceeding with endoscopy for a percutaneous endoscopic gastrostomy tube placement. I would recommend to continue intravenous nutrition for now. I believe they will be discussing with the family her prognosis and their wishes on how aggressive they will be from this point on. Gastroenterology will be available, but at this point, she would not be stable enough to proceed with a percutaneous endoscopic gastrostomy tube placement at this time. Will continue to follow and further plans will be made according to her progress. I have discussed this case with Dr. Heath. Dictated by MALINA Elkins for Caden Heath MD cc: MALINA Dukes MD
[2018-11-25] MEDS ORDERED: D50W SYRINGE IV PRN (16:00)
[2018-11-25] MEDS: PROTONIX IV SCH (16:02)
[2018-11-25] MEDS: SODIUM CHLORIDE 0.9% INJ SCH (16:03)
[2018-11-26] MEDS: HUMALOG SUBQ SCH ×3 (00:12→08:51)
[2018-11-26] MEDS: LOPRESSOR 10 MG in NS 50 ML IV SCH ×3 (01:03→14:03)
[2018-11-26] MEDS: LACTULOSE PO SCH ×2 (02:03→08:52)
[2018-11-26 04:51] LABS: ALLEN TEST YES; BE -9.4 mmoll (-3.0-3.0); BLOOD TYPE ARTERIAL; HCO3-(ACT) 17.5 mmoll (20.0-26.0); O2(CT) 14.8 mL/dL (15.0-23.0); PO2(98.6) 82 mmHg (60-100); SAMPLE BLOOD; SAO2 96.1 % (95.0-100.0); THB 11.1 g/dL (11.5-17.4)
[2018-11-26 04:54] LABS: MODALITY BI PAP; PCO2(98.6) 67 mmHg (35-45)
[2018-11-26] MEDS: NEO-SYNEPHRINE 50 MG in NS 250 ML IV SCH (05:34)
[2018-11-26] MEDS ORDERED: NS 2,000 ML MISC PRN (05:45)
[2018-11-26] MEDS ORDERED: NS 500 ML IV ONE (06:03)
[2018-11-26] MEDS ORDERED: NS 1,000 ML ONE (06:18)
[2018-11-26 06:20] LABS: HEMATOCRIT 36.2 % (37.0-47.0); HEMOGLOBIN 10.6 g/dL (12.0-16.0); MCH 31.5 PG (27-31); MCHC 29.3 g/dL (33-37); MCV 107.7 FL (81-99); MPV 11.9 FL (7.4-10.4); RBC 3.36 XMIL (4.2-5.4); RDW 15.6 % (11.5-14.5); WBC 12.86 X1000 (4.8-10.8)
--- NOTE | 2018-11-26 06:47 | Diag Imaging Result Doc PS360 ---
CHEST-PORTABLE - 11/26/2018 INDICATION: cardiac arrest COMPARISON: 11/25/2018 FINDINGS: Stable cardiomegaly and pulmonary vascular congestion. No dense infiltrates or pulmonary edema. IMPRESSION: No change from prior. Electronically signed by Kadeem Griggs 11/26/2018 6:44 AM
[2018-11-26] MEDS: XOPENEX NEB INH SCH (08:02)
[2018-11-26] MEDS: ATROVENT NEB INH SCH (08:03)
[2018-11-26 08:38] LABS: ALLEN TEST YES; BE -11.4 mmoll (-3.0-3.0); BLOOD TYPE ARTERIAL; METHB 0.9 % (0.0-1.5); O2(CT) 15.3 mL/dL (15.0-23.0); O2HB 97.2 % (95.0-99.0); PO2(98.6) 194 mmHg (60-100); SAMPLE BLOOD; SAO2 98.5 % (95.0-100.0); SRATE 12 BPM; THB 10.9 g/dL (11.5-17.4)
[2018-11-26 08:40] LABS: MODALITY BI PAP; PCO2(98.6) 84 mmHg (35-45)
[2018-11-26] MEDS: HEPARIN SUBQ SCH (08:51)
[2018-11-26] MEDS: LANTUS INSULIN SUBQ SCH (08:53)
[2018-11-26] MEDS: MIRALAX PO SCH (08:53)
[2018-11-26 09:14] LABS: AGAP 17; ALBUMIN 3.3 g/dL (3.5-5.0); BUN 52 mg/dL (8-22); CALCIUM 9.9 mg/dL (8.8-10.2); CHLORIDE 104 mmol/L (98-107); COSMO 293; CREATININE 5.3 mg/dL (0.5-0.9); GLUCOSE 197 mg/dL (70-104); PHOSPHORUS 7.8 mg/dL (2.7-4.5); SODIUM 137 mmol/L (136-145); TCO2 16 mmol/L (25-35)
[2018-11-26 09:16] LABS: POTASSIUM 7.1 mmol/L (3.5-5.1)
[2018-11-26] MEDS ORDERED: HUMULIN R IV ONE (09:20)
[2018-11-26] MEDS ORDERED: CALCIUM GLUCONATE IV PUSH ONE ×2 (09:20→10:15)
[2018-11-26] MEDS ORDERED: D50W SYRINGE IV ONE (09:20)
[2018-11-26] MEDS ORDERED: AMIDATE ONE (09:44)
--- NOTE | 2018-11-26 10:11 | NEPHROLOGY PROGRESS NOTE ---
DATE: 11/26/2018 SUBJECTIVE: She is unresponsive on BiPAP today. OBJECTIVE: Vital Signs: Blood pressure 73/56, heart rate 89, respirations 22. Generally: Again, unresponsive to vigorous tactile and verbal stimuli. Skin: Warm and dry. Conjunctivae are pink. Pupils are equal. Oropharynx not examined. Neck: Neck veins not visible. Heart: Regular with tachycardia. Lungs: Have equal breath sounds. Shallow, few rhonchi throughout. Abdomen: Soft, nontender. Bowel sounds present. Extremities: No edema, clubbing or cyanosis. IMPRESSION AND PLAN: 1. Chronic kidney disease 5D. We had to delay initiation of dialysis today because of her ventilatory status. She is now being placed on the ventilator. 2. Hyperkalemia. Dialysis as soon as possible. We will dose with calcium gluconate currently as well as insulin D50. cc: Darryl Bonner MD
[2018-11-26] MEDS ORDERED: SODIUM BICARBONATE 8.4% ONE ×2 (10:12→12:00)
[2018-11-26 11:19] VITALS: BP 185/39
[2018-11-26] MEDS ORDERED: ATROPINE SYRINGE ONE (12:00)
[2018-11-26] MEDS ORDERED: AMIDATE IV ONE (13:45)
--- NOTE | 2018-11-27 01:32 | DISCHARGE SUMMARY ---
ADMISSION DATE: 11/11/2018 DISCHARGE DATE: 11/26/2018 CONSULTS: Neurology, Gastroenterology, Pulmonology. DISCHARGE DIAGNOSES: 1. Cardiac arrest. 2. Acute on chronic hypoxic and hypercapnic respiratory failure. 3. Metabolic encephalopathy. 4. Possible hypoxic brain injury. 5. Diabetes. 6. End-stage renal disease. 7. Chronic systolic congestive heart failure. 8. Hyperlipidemia. 9. Obesity. HOSPITAL COURSE: The patient admitted initially for colonoscopy but experienced cardiac arrest at that time. Was resuscitated rapidly, but required intubation. Clear etiology of her initial arrest was never established. The patient was placed on hypothermia protocol. Status post hypothermia protocol was treated for pneumonia which was identified approximately at the time of intubation and COPD with likely exacerbation. She was eventually able to be extubated, but remained encephalopathic. She had occasional nonpurposeful movement but never really woke up. There was concern for hypoxic brain injury, but patient continued to be BiPAP dependent and unstable for MRI. The day prior to her , there was some slight worsening of her respiratory status, but she remained fairly stable on BiPAP. On the day of her , she had rapid and marked worsening of her respiratory status with major hypercapnia with pCO2 trending up from 41 to 67 to 84 rapidly. Also with decreasing pH. Oxygenation remained stable. We made the decision to intubate the patient. The patient was given a small dose of etomidate to facilitate intubation. No succinylcholine was given due to her kidney failure and hyperkalemia. Calcium gluconate was given for the hyperkalemia as per nephrology reccomendations. The intubation was difficult but was eventually accomplished with good color change and bilateral breath sounds. Oxygenation remained 100% with bagging initially and after patient was placed on the ventilator. Five to 10 minutes after that, the patient began to experience bradycardia. The ventilator was assessed and patient was not appear to have high pressures or breath stacking. She actually appeared to be overbreathing the vent. The patient was given atropine and then epinephrine with improvement in bradycardia, but then subsequently had bradycardia again. Atropine and epinephrine were repeated. The patient then lost pulse and CPR was initiated. During CPR, patient received an additional 6 rounds of epinephrine, 2 doses of bicarbonate and 2 more grams of calcium gluconate. Through this, patient remained in persistent asystole and so code was eventually called. Time of was 10:20. LAST VITALS: None. Patient . PHYSICAL EXAMINATION: Heart and breath sounds absent. Pupils fixed. Pulses were absent. Reflexes absent. DISCHARGE DIET: None. Patient . DISCHARGE MEDICATIONS: None. Patient . FOLLOWUP AND PLAN: None. The patient . TOTAL CRITICAL CARE TIME SPENT: Immediately available to patient including reviewing labs, making medical decisions and performing CPR, 50 minutes. MTDD
== END 2018-11-26 10:20 | disposition expired | DRG 314 ==
LOC: ICU 11:02 → ENDO 11:02 → OBSVTOIN 15:12 → SUATTDRO 15:12
PROVIDERS: ATTEND Internal Medicine
CPT/HCPCS: 70210; 70450; 71010; 71045; 71250; 74000; 74018; 74150; 80048; 80053; 80069; 80076; 81001; 82150; 82550; 82553; 82784; 82805; 82948; 83605; 83690; 83735; 83880; 84100; 84134; 84145; 84443; 84484; 85025; 85027; 85610; 85730; 87040; 87070; 87077; 87088; 87186; 87205; 93005; 93010; 93306; 93971; 93990; 94002; 94003; 94150; 94640; 94660; 94761; 95816; A9270; C9113; J0171; J0461; J0610; J0692; J0696; J0713; J1630; J1644; J1650; J1815; J2060; J2250; J2270; J2370; J3010; J3370; J3480; J7030; J7040; J7050; S0028; S0164; XXXXX